=== PATIENT | male | born 1935 | race Caucasian/White ===

== ENCOUNTER 2016-10-07 15:25 | Emergency (ER) | payer MEDICARE ==
[~2016-10-07] VITALS: Ht 180.3 cm; Wt 76.0 kg
[2016-10-07 15:50] VITALS: BP 180/102; PULSE 93; RESP 16; TEMP 97.9; O2SAT 98
[2016-10-07] MEDS ORDERED: cholesterol med PO (16:10)
[2016-10-07] MEDS ORDERED: INSULIN LONG ACTING SQ (16:10)
[2016-10-07] MEDS ORDERED: blood pressure med PO (16:10)
[2016-10-07] MEDS ORDERED: insulin SQ (16:10)
[2016-10-07 16:17] LABS: BLOOD, URINE LARGE (NEG); GLUCOSE,URINE 500 mg/dL (NEG); KETONE, URINE NEG (NEG); NITRITE,URINE NEG (NEG); PH, URINE 5.5 (5.0-8.5)
[2016-10-07] MEDS ORDERED: LEVA250T PO (16:28)
[2016-10-07 16:29] LABS: METHOD OF COLLECTION CLEAN CATCH; URINE COLOR YELLOW (YELLW/STRAW)
[2016-10-07 16:31] LABS: COMMENT (UR) CULTURE INDICATED; COMMENT2 (UR) MUCOUS PRESENT; CULTURE IF INDICATED CULTURE INDICATED; SQUAMOUS EPITHELIAL CELL URINE 0-5 /hpf (0-5)
--- NOTE | 2016-10-07 16:38 | PD ---
HPI Chief Complaint: left ankle pain Time Seen by Provider: 16:33 Travel History International Travel<30 days: No Contact w/Intl Traveler<30days: No Traveled to known affect area: No History of Present Illness HPI This 81-year-old male was walking up some stairs when he felt a pop in the back of his left ankle. He has had a similar event happen on the right side a few years ago and at that time was diagnosed with a partial tear of his Achilles tendon. He had a surgical repair done. He is currently on Levaquin for treatment of a urinary tract infection. This is his second day of levaquin. He is not able to walk at this point [facility] Past Medical History High Cholesterol: Yes Diabetes: Yes Patient Takes Glucophage: No Diminished Hearing: No Hypertension: Yes Tetanus Vaccination: Unknown Influenza Vaccination: Yes Past Surgical History Surgical History: No Previous Surgery Social History Alcohol Use: No Tobacco Use: No Substance Use: No Allergies-Medications (Allergen,Severity, Reaction): Coded Allergies: No Known Allergies (Unverified , 10/07/16) Reported Meds & Prescriptions Reported Meds & Active Scripts Active Reported Levaquin (Levofloxacin) 250 Mg Tab 250 Mg PO DAILY [insulin long acting] 1 Units SQ DIRECTED [insulin] 1 Units SQ DIRECTED [blood pressure med] 1 Tab PO DAILY [cholesterol med] 1 Tab PO HS Review of Systems General / Constitutional: No: Fever, Chills HENT: No: Headaches, Vertigo Cardiovascular: No: Chest Pain or Discomfort Respiratory: No: Shortness of Breath Genitourinary: Positive: Dysuria Musculoskeletal: Positive: Weakness Hematologic/Lymphatic: No: Easy Bruising Physical Exam Narrative GENERAL: Well-developed male SKIN: Warm and dry. HEAD: Atraumatic. Normocephalic. EYES: Pupils equal and round. No scleral icterus. No injection or drainage. ENT: No nasal bleeding or discharge. Mucous membranes pink and moist. NECK: Trachea midline. No JVD. MUSCULOSKELETAL: No obvious deformities. No clubbing. No cyanosis. No edema. Examination of the left ankle does not show any deformity. There is some tenderness in the area of the Achilles. He is able to dorsi flex but he is very weak in plantar flexion. [place] test shows no movement of the foot with compression of the calf NEUROLOGICAL: Awake and alert. No obvious cranial nerve deficits. Motor grossly within normal limits. Normal speech. PSYCHIATRIC: Appropriate mood and affect; insight and judgment normal. Data Data Last Documented VS Vital Signs Date Time Temp Pulse Resp B/P Pulse Ox O2 Delivery O2 Flow Rate FiO2 10/07/16 16:11 93 16 10/07/16 15:50 97.9 180/102 98 Orders Urinalysis - C+S If Indicated (10/07/16 15:59) Urine Culture (10/07/16 15:49) Ankle, Complete ([id number]) (10/07/16 16:33) Nitrofurantoin Monohyd Macrocr (Macrobid (10/07/16 16:45) Splint Or Brace Apply/Monitor (10/07/16 17:12) Crutches (10/07/16 17:12) Labs Laboratory Tests Test 10/07/16 15:49 Urine Collection Type CLEAN CATCH Urine Color YELLOW Urine Turbidity SLIGHT Urine pH 5.5 Urine Specific [place] 1.016 Urine Protein 30 mg/dL Urine Glucose (UA) 500 mg/dL Urine Ketones NEG mg/dL Urine Occult Blood LARGE Urine Nitrite NEG Urine Bilirubin NEG Urine Leukocyte Esterase SMALL Urine RBC 50-99 /hpf Urine WBC 20-24 /hpf Urine Squamous Epithelial 0-5 /hpf Cells Urine Amorphous Sediment FEW Microscopic Urinalysis Comment CULTURE INDICATED Urine Collection Time 1549 MDM Medical Decision Making Medical Screen Exam Complete: Yes Emergency Medical Condition: Yes Medical Record Reviewed: Yes Differential Diagnosis Differential includes fracture, Achilles tendon rupture Narrative Course Findings are consistent with rupture of the Achilles tendon, possibly a partial rupture. He is currently on Levaquin and this was stopped. He does have a ongoing urinary tract infection and will be changed to Macrobid. His foot will be splinted in plantar flexion. He is to follow-up with orthopedics Diagnosis Primary Impression: Achilles tendon rupture Qualified Code: S86.012A - Achilles tendon rupture, left, initial encounter Additional Impression: Urinary tract infection Qualified Code: N30.00 - Acute cystitis without hematuria Referrals: Michael Ashton MD Additional Instructions: Called for orthopedic appointment Saturday or Saturday, leave splint on until appointment, stop Levaquin Scripts Nitrofurantoin Monohydrate Macrocrystals (Macrobid)100 Mg [id number] Mg PO BID #20 CAP Ref 0 Prov:Beny Villa MD 10/07/16 Disposition: 01 DISCHARGE HOME Condition: Stable Beny Villa MD Oct 07, 2016 16:38
[2016-10-07] MEDS ORDERED: NITROFURANTOIN MONOHYD MACROCR 100 MG CAP PO ONE (16:45)
[2016-10-07] MEDS ORDERED: MACR100C2 PO (17:20)
--- NOTE | 2016-10-07 17:40 | RADHPO ---
EXAM DATE/TIME: 10/07/2016 17:04 [facility] COMPARISON: No previous studies available for comparison. INDICATIONS : [place] a pop in ankle climbing up stairs today, has poterior ankle pain MEDICAL HISTORY : Diabetes mellitus type II. SURGICAL HISTORY : None. ENCOUNTER: Initial ACUITY: 1 day PAIN SCORE: 5/10 LOCATION: Left posterior ankle FINDINGS: There is induration and soft tissue swelling in the expected location of the Achilles tendon. Ruptur e is suspected. MRI could be used to confirm. There is no fracture. CONCLUSION: Probable Achilles rupture as suspected. MRI could be used to confirm. Mauro Pérez MD FACR on October 07, 2016 at 17:37 Board Certified Radiologist. This report was verified electronically.
[2016-10-23] MEDS ORDERED: LISI40TA PO (10:13)
[2016-10-23] MEDS ORDERED: AMLO5TAB2 PO (10:13)
[2016-10-23] MEDS ORDERED: ASPI81CH37 CHEW (10:21)
[2016-10-23] MEDS ORDERED: ATOR1TAB18 PO (10:21)
[2016-10-23] MEDS ORDERED: METO100T PO (10:21)
[2016-10-23] MEDS ORDERED: NOVONP2 (10:59)
[2016-10-23] MEDS ORDERED: LANTUS2P SQ ×2 (10:59)
[2016-10-24] MEDS ORDERED: NOVOLOGP2 SQ ×2 (06:04)
[2016-10-24] MEDS ORDERED: HYDR-3580 PO (10:05)
[2016-10-24] MEDS ORDERED: ASPI325T33 PO (10:05)
[2016-11-02] MEDS ORDERED: FINA5TAB2 PO (12:04)
[2016-11-02] MEDS ORDERED: TAMS0.4C4 PO (12:04)
[2016-11-29] MEDS ORDERED: FINA5TAB2 PO (09:23)
== END 2016-10-07 17:57 | disposition home or self-care (01) ==
LOC: PHEFT 15:25
DX: S86.012A Strain of left Achilles tendon, initial encounter (principal); N30.00 Acute cystitis without hematuria; E78.00 Pure hypercholesterolemia, unspecified; E11.9 Type 2 diabetes mellitus without complications; I10 Essential (primary) hypertension; Z79.4 Long term (current) use of insulin; X58.XXXA Exposure to other specified factors, initial encounter; Y92.008 Other place in unspecified non-institutional (private) residence as the place of occurrence of the external cause
CPT/HCPCS: 29515; 73610; 81001; 87086; 99283; E0113

== ENCOUNTER 2016-10-24 17:48 | Emergency (ER) | payer MEDICARE ==
[~2016-10-24] VITALS: Ht 180.3 cm; Wt 77.1 kg
[~2016-10-24 17:48] MED LIST changes: -ACETAMINOPHEN 1000 MG/100 ML VIAL IV ONE; -ACETAMINOPHEN/HYDROcodone 325 MG/5 MG TAB PO PRN; -BACT800T5 PO; -BUPIVACAINE HCL PF 0.5% 30 ML VIAL NB ONE; -DEXTROSE 50% IN WATER 50 ML VIAL(D50) IV PUSH PRN; -DO NOT ADM ANY ANTICOAGULANT DRUGS XX PRN; -FINA5TAB2 PO; -GLUCAGON 1 MG/ML VIAL OTHER PRN; -INSULIN HUMAN REGULAR 1,000 UNITS/10 ML VIAL SQ PRN; -INSULIN NovoLIN REGULAR SUPPLEMENTAL SCALE SQ SCH; -LACTATED RINGER'S 1000 ML INJ 1,000 ML IV SCH; -LACTATED RINGER'S 1000 ML IV SCH; -METOPROLOL TARTRATE 25 MG TAB PO PRN; -MIDAZOLAM HCL 2 MG/2 ML VIAL ONE; -MORPHINE SULFATE 4 MG/ML INJ IV PUSH PRN; -NEOSTIGMINE 3 MG/3 ML SYR IV ONE; -ONDANSETRON HCL 4 MG/2 ML VIAL IV PRN; -ONDANSETRON HCL 4 MG/2 ML VIAL IV PUSH ONE; -POVIDONE IODINE 7.5% SCRUB 118 ML BOTTLE TOP SCH; -PROMETHAZINE INJ 25 MG/ML VIAL ONE; -PROPOFOL 200 MG/20 ML AMP IV ONE; -SODIUM CHLORID 0.9% 500 ML IV SCH; -SODIUM CHLORIDE 0.9% FLUSH 5 ML FLUSH IVF PRN; -SODIUM CHLORIDE 0.9% FLUSH 5 ML FLUSH IVF SCH; -TAMS0.4C4 PO; -TAMS5CAP PO; -VANCOMYCIN 1000 MG/NS 250 ML (for <70 kg) IV SCH; -ceFAZolin 2 GM PREMIX 50 ML IV SCH; -ePHEDrine/NS 25 MG/5 ML SYR IV ONE; -fentaNYL CITRATE 250 MCG/5 ML AMP ONE
[2016-10-24 18:04] VITALS: BP 152/91; PULSE 104; RESP 16; TEMP 98.4; O2SAT 97
[2016-10-24 18:32] LABS: BLOOD, URINE LARGE (NEG); KETONE, URINE TRACE mg/dL (NEG); NITRITE,URINE NEG (NEG)
--- NOTE | 2016-10-24 18:32 | PD ---
HPI Chief Complaint: Complaint Time Seen by Provider: 18:23 Travel History International Travel<30 days: No Contact w/Intl Traveler<30days: No Traveled to known affect area: No History of Present Illness HPI 81-year-old male complains of dysuria and frequency and bladder pressure. Patient status post left Achilles tendon surgery this morning. Patient started having dysuria or frequency and bladder pressure since then. Patient states that he does not know whether he had Self catheter during surgery or not. Patient was treated for UTI recently with Levaquin and then Macrobid. Patient' s on Flagyl 3 times a day now after the surgery. Patient denies any headache. Patient denies any chest pain or shortness of breath. Patient denies abdominal pain. Patient denies any back pain. Patient denies any fever chills. PFSH Past Medical History Cancer: No Cardiovascular Problems: Yes (htn on meds) High Cholesterol: Yes Diabetes: Yes (type 1) Patient Takes Glucophage: No Diminished Hearing: No Endocrine: Yes Gastrointestinal Disorders: No Genitourinary: No Hepatitis: No Hiatal Hernia: No Hypertension: Yes Immune Disorder: No Medical other: No Musculoskeletal: Yes (ARTHRITIS GENERALIZED) Neurologic: No Psychiatric: No Reproductive: No Respiratory: No Thyroid Disease: No Past Surgical History Abdominal Surgery: Yes (RT INGUINAL HERNIA) AICD: No Eye Surgery: Yes (NADINE. CATARACT) Joint Replacement: No Pacemaker: No Other Surgery: Yes Social History Alcohol Use: No Tobacco Use: No Substance Use: No Allergies-Medications (Allergen,Severity, Reaction): Coded Allergies: Levaquin (Verified Adverse Reaction, Severe, achilles tendon tear, 10/24/16) Reported Meds & Prescriptions Reported Meds & Active Scripts Active Aspirin EC (Aspirin) 325 Mg Tabdr 325 Mg PO DAILY Hydrocodone-Acetaminophen 7.5-325 mg Tab 1 Tab PO Q4H PRN as needed Reported Novolog Inj (Insulin Aspart) 1,000 Unit/10 Ml Vial 10 Units SQ HS Novolog Inj (Insulin Aspart) 1,000 Unit/10 Ml Vial 18 Units SQ DAILY Lantus Inj (Insulin Glargine) 1,000 Unit/10 Ml Vial 15 Units SQ HS Lantus Inj (Insulin Glargine) 1,000 Unit/10 Ml Vial 32 Units SQ DAILY Atorvastatin (Atorvastatin Calcium) 80 Mg Tab 80 Mg PO HS Metoprolol Tartrate 100 Mg Tab 100 Mg PO DAILY Lisinopril 40 Mg Tab 40 Mg PO DAILY Amlodipine (Amlodipine Besylate) 5 Mg Tab 5 Mg PO DAILY Review of Systems General / Constitutional: No: Fever Eyes: No: Visual changes HENT: No: Headaches Cardiovascular: No: Chest Pain or Discomfort Respiratory: No: Shortness of Breath Gastrointestinal: No: Abdominal Pain Genitourinary: Positive: Frequency, Dysuria Musculoskeletal: No: Pain Skin: No Rash Neurologic: No: Weakness Psychiatric: No: Depression Endocrine: No: Polydipsia Hematologic/Lymphatic: No: Easy Bruising Physical Exam Narrative GENERAL: Well-nourished, well-developed patient. SKIN: Warm and dry. HEAD: Normocephalic. EYES: No scleral icterus. No injection or drainage. NECK: Supple, trachea midline. No JVD or lymphadenopathy. CARDIOVASCULAR: Regular rate and rhythm without murmurs, gallops, or rubs. RESPIRATORY: Breath sounds equal bilaterally. No accessory muscle use. GASTROINTESTINAL: Abdomen soft, non-tender, nondistended. MUSCULOSKELETAL: No cyanosis, or edema. Patient has shortness splint in place left leg. BACK: Nontender without obvious deformity. No CVA tenderness. Data Data Last Documented VS Vital Signs Date Time Temp Pulse Resp B/P Pulse Ox O2 Delivery O2 Flow Rate FiO2 10/24/16 18:04 98.4 104 16 152/91 97 Orders Urinalysis - C+S If Indicated (10/24/16 18:09) Urinary Catheter Insert/Apply (10/24/16 18:47) Labs Laboratory Tests Test 10/24/16 18:15 Urine Collection Type CLEAN CATCH Urine Color STRAW Urine Turbidity CLEAR Urine pH 6.0 Urine Specific [place] 1.020 Urine Protein 30 mg/dL Urine Glucose (UA) 1000 OR GREATER mg/dL Urine Ketones TRACE mg/dL Urine Occult Blood LARGE Urine Nitrite NEG Urine Bilirubin NEG Urine Leukocyte Esterase NEG Urine RBC 15-19 /hpf Urine WBC 3-5 /hpf Urine Squamous Epithelial 0-2 /hpf Cells Urine Bacteria RARE /hpf Microscopic Urinalysis Comment CULT NOT INDICATED MDM Medical Decision Making Medical Screen Exam Complete: Yes Emergency Medical Condition: Yes Interpretation(s) 19 11 PM. UA positive for RBC and glucose. Negative for WBC. Rare bacteria Differential Diagnosis Differential diagnosis including UTI, urethritis, pyelonephritis, urinary retention. Narrative Course 81-year-old male with dysuria frequency and bladder pressure. Status post left Achilles tendon surgery this morning. Self catheter inserted. Patient had 1200 cc of urine. Leg bag applied. Diagnosis Primary Impression: Urinary retention Additional Impression: Bacteriuria Patient Instructions: General Instructions Additional Instructions: Take medications as directed. Follow-up with personal physician and urologist. Return if persistent problem or worse. Med/Other Pt SpecificInfo: Prescription(s) given Scripts Tamsulosin (Flomax)0.4 Mg Cap0.4 Mg PO BID #14 CAP Ref 0 Prov:Anton Stockton MD 10/24/16 Sulfamethoxazole-Trimethoprim (Bactrim DS)800-160 Mg Tab1 Tab PO BID #6 TAB Prov:Anton Stockton MD 10/24/16 Disposition: 01 DISCHARGE HOME Condition: Stable Anton Stockton MD Oct 24, 2016 18:32
[2016-10-24 18:33] LABS: GLUCOSE,URINE 1000 OR GREATER mg/dL (NEG)
[2016-10-24 18:54] LABS: METHOD OF COLLECTION CLEAN CATCH; URINE COLOR STRAW (YELLW/STRAW)
[2016-10-24 18:55] LABS: BACTERIA, URINE RARE /hpf; RBC, URINE 15-19 /hpf (0-3); SQUAMOUS EPITHELIAL CELL URINE 0-2 /hpf (0-5)
[2016-10-24 18:56] LABS: COMMENT (UR) CULT NOT INDICATED; CULTURE IF INDICATED CULT NOT INDICATED
[2016-10-24] MEDS ORDERED: BACT800T5 PO (19:16)
[2016-10-24] MEDS ORDERED: TAMS5CAP PO (19:16)
[2016-10-24] MEDS ORDERED: SULFAMETHOXAZOLE-TRIMETHOPRIM DS 800-160 MG TAB PO ONE (19:30)
[2016-10-24] MEDS ORDERED: TAMSULOSIN HCL 0.4 MG CAP PO ONE (19:30)
[2016-10-24 19:48] VITALS: BP 149/83
[2016-11-02] MEDS ORDERED: TAMS0.4C4 PO (12:04)
[2016-11-02] MEDS ORDERED: FINA5TAB2 PO (12:04)
[2016-11-29] MEDS ORDERED: FINA5TAB2 PO (09:23)
== END 2016-10-24 19:50 | disposition home or self-care (01) ==
LOC: PHED 17:48
DX: R33.9 Retention of urine, unspecified (principal); R82.71 Bacteriuria
CPT/HCPCS: 51702; 81001

== ENCOUNTER → 2016-10-24 | Day surgery (SDC) | payer MEDICARE ==
[~2016-10-24] VITALS: Ht 180.3 cm; Wt 76.7 kg
[~2016-10-24] MED LIST: ACETAMINOPHEN 1000 MG/100 ML VIAL IV ONE; ACETAMINOPHEN/HYDROcodone 325 MG/5 MG TAB PO PRN; AMLO5TAB2 PO; ASPI325T33 PO; ASPI81CH37 CHEW; ATOR1TAB18 PO; BACT800T5 PO; BUPIVACAINE HCL PF 0.5% 30 ML VIAL NB ONE; DEXTROSE 50% IN WATER 50 ML VIAL(D50) IV PUSH PRN; DO NOT ADM ANY ANTICOAGULANT DRUGS XX PRN; FINA5TAB2 PO; GLUCAGON 1 MG/ML VIAL OTHER PRN; HYDR-3580 PO; INSULIN HUMAN REGULAR 1,000 UNITS/10 ML VIAL SQ PRN; INSULIN NovoLIN REGULAR SUPPLEMENTAL SCALE SQ SCH; LACTATED RINGER'S 1000 ML INJ 1,000 ML IV SCH; LACTATED RINGER'S 1000 ML IV SCH; LANTUS2P SQ; LISI40TA PO; METO100T PO; METOPROLOL TARTRATE 25 MG TAB PO PRN; MIDAZOLAM HCL 2 MG/2 ML VIAL ONE; MORPHINE SULFATE 4 MG/ML INJ IV PUSH PRN; NEOSTIGMINE 3 MG/3 ML SYR IV ONE; NOVOLOGP2 SQ; NOVONP2; ONDANSETRON HCL 4 MG/2 ML VIAL IV PRN; ONDANSETRON HCL 4 MG/2 ML VIAL IV PUSH ONE; POVIDONE IODINE 7.5% SCRUB 118 ML BOTTLE TOP SCH; PROMETHAZINE INJ 25 MG/ML VIAL ONE; PROPOFOL 200 MG/20 ML AMP IV ONE; SODIUM CHLORID 0.9% 500 ML IV SCH; SODIUM CHLORIDE 0.9% FLUSH 5 ML FLUSH IVF PRN; SODIUM CHLORIDE 0.9% FLUSH 5 ML FLUSH IVF SCH; TAMS0.4C4 PO; TAMS5CAP PO; VANCOMYCIN 1000 MG/NS 250 ML (for <70 kg) IV SCH; ceFAZolin 2 GM PREMIX 50 ML IV SCH; ePHEDrine/NS 25 MG/5 ML SYR IV ONE; fentaNYL CITRATE 250 MCG/5 ML AMP ONE
[2016-10-24 06:10] VITALS: BP 195/100; PULSE 67; RESP 20; TEMP 98; O2SAT 98
[2016-10-24 06:30] VITALS: PULSE 67
--- NOTE | 2016-10-24 06:54 | MH ---
cc: NUHAALEJANDRA DATE OF ADMISSION: 10/24/2016 DIAGNOSIS Laceration Achilles tendon left, date of injury 10/07/2016. HISTORY OF PRESENT ILLNESS The patient states he was taking Levaquin for a few days. He was walking across the room at home and felt something snap in the back of his leg. He was seen in the emergency room where he was x-rayed and evaluated and diagnosed and had splint put on, given crutches and to see the undersigned. I saw him on October 12. At this time I ordered an MRI scan which confirmed the mid substance tear of this left Achilles tendon. The patient did not have a family physician other than the [facility] and therefore he was sent to [facility] primary care where he was seen by Dr. Henriquez who has evaluated him and considers him low risk from a cardiovascular standpoint. PERSONAL AND SOCIAL HISTORY Nonsmoker, nondrinker. He is retired. He tries to exercise. PAST MEDICAL HISTORY He is insulin-dependent diabetic for several decades. He has high blood pressure and high cholesterol. PAST SURGERIES Achilles tendon repair right leg 20 years ago and hernia repair. MEDICATIONS 1. He is on Macrodantin for chronic urinary tract infection. 2. He is on Lantus and 3. NovoLog insulin. 4. Amlodipine. 5. Lisinopril. 6. Atenolol. 7. 81 mg aspirin. PHYSICAL EXAMINATION GENERAL: Physical examination reveals elderly white male who looks very healthy for his age. HEENT: Head is normocephalic. Pupils are reactive to light. Face symmetrical. HEART: Regular rhythm. No murmurs. LUNGS: Clear to auscultation. ABDOMEN: Soft and supple. EXTREMITIES: Left leg reveals obvious evidence of mid substance tear of the Achilles tendon on the left side. He has palpable pedal pulses and moves his toes well. He has good sensation to touch. He also has preserved protective sensation as tested by the 5.07 [place] monofilament. He does have slight clawing of his big toe bilaterally but apparently had chronic change. There is no evidence of any obvious neuropathy. ASSESSMENT The diagnosis, the treatment and particularly the difference between nonoperative treatment and operative treatment in terms of the outcome and expected results as well as significant risks of surgery, especially in a 80-year-old with diabetes in terms of wound healing issues, infection, failure of surgery, failure of healing, etc. He has been advised that we may use graft jacket which is allograft skin for augmentation repair. There is a small possibility of flexor hallicis longus transfer to the calcaneus. These were all discussed. Postoperative course discussed. Informed consent has been obtained. No guarantees made. MD HARRISON Knutson/JACK /6:15 AM /6:32 AM
[2016-10-24 12:50] VITALS: BP 167/76; PULSE 69; RESP 16; TEMP 97.5; O2SAT 97
--- NOTE | 2016-10-26 21:55 | MP ---
cc: ALEJANDRA ANNE Corrected: 10/29/2016 DATE OF SURGERY: 10/24/2016 PREOPERATIVE DIAGNOSIS: Mid substance tear left Achilles tendon. POSTOPERATIVE DIAGNOSIS Mid substance tear left Achilles tendon. OPERATIVE PROCEDURE 1. Primary repair mid substance tear Achilles tendon left. 2. Augmentation repair with graft jacket SURGEON Dr. Anne. ANESTHESIA: The patient received a popliteal block in holding and then had general anesthesia with endotracheal intubation. TECHNIQUE After induction of anesthesia the patient placed in prone position. Following routine precautions for prone position in terms of supporting his chest and knees, etc., elbows were well protected. Both lower extremities were compared. Even his right leg where he has had previous repair of the Achilles tendon and the Achilles tendon appears to be intact, when he flexed his knees at 90 degrees, the foot was in neutral position rather in plantar flexion. Left lower extremity thoroughly prepped with alcohol and ChloraPrep draped in routine fashion. Tourniquet was not used. [place] drape was applied over the back of the leg. An incision was made initially about four inches long and eventually extended proximally, through the medial border of the Achilles tendon and extended proximally. Incision was carried right down to the tendon sheath and then a lateral flap was developed. Dissection through the tendon sheath reveals that this is a proximal tear closer to the musculotendinous junction. There was a tear with more distraction medially and laterally. A #5 FiberWire suture was passed in a modified Zoe fashion and held with a hemostat superior laterally. One #2 FiberWire was then threaded through the medial and lateral borders of the distal and proximal tendons in a modified [place] fashion. The knee was flexed and the foot was slightly plantarflexed and the #2 FiberWire suture was first tied medially getting good approximation. I then proceeded to tie the #5 FiberWire and then the lateral #2 FiberWire getting good coaptation. A graft jacket was soaked in saline was then used. A piece about 5 cm long and 1.5 cm wide was placed on the repair with the tissue side abutting the tendon and then secured with running 2-0 Vicryl suture. The skin was then closed in single layer incorporating the tendon sheath with interrupted vertical mattress, 3-0 nylon sutures without any significant tension. Wound was then dressed with Xeroform, 4x4s, Sof-Rol and ABD, and an a posterior fiberglass splint was applied with the foot in about 10 degrees of plantar flexion. It was reinforced with fiberglass anteriorly also. The patient transferred to recovery room in satisfactory condition. The patient tolerated the procedure well. TRANSFUSIONS: None. COMPLICATIONS: None. POSTOPERATIVE CONDITION: Satisfactory PROGNOSIS: Guarded to good. Especially concerned about his diabetes and his age, and possible noncompliance. He is otherwise healthy. He is also alert, oriented and knows what is going on, but his daughter says that he tends to do too much. The tear was also somewhat in a beveled angle fashion and somewhat more close to the musculotendinous junction. MD HARRISON Knutson/BELKYS /9:52 AM /9:44 PM NARCISO
== END | disposition home or self-care (01) ==
LOC: HSDC 05:27
PROVIDERS: ATTEND Orthopaedic Surgery
DX: S86.012A Strain of left Achilles tendon, initial encounter (principal); I10 Essential (primary) hypertension; E78.5 Hyperlipidemia, unspecified; E78.00 Pure hypercholesterolemia, unspecified; Z79.4 Long term (current) use of insulin; E11.9 Type 2 diabetes mellitus without complications; Z79.82 Long term (current) use of aspirin; X58.XXXA Exposure to other specified factors, initial encounter; Y92.008 Other place in unspecified non-institutional (private) residence as the place of occurrence of the external cause
CPT/HCPCS: 01472; 15271; 27652; 64450; J0131; J0690; J2250; J2405; J2550; J2710; J3010; J3370; J7050; J7120; Q4107; 51702; 81001

== ENCOUNTER 2016-11-09 00:50 | Emergency (ER) | payer MEDICARE ==
[~2016-11-09] VITALS: Ht 177.8 cm; Wt 77.3 kg
[~2016-11-09 00:50] MED LIST changes: -ASPI81CH37 CHEW; +BACT800T5 PO; +FINA5TAB2 PO; -HYDR-3580 PO; -NOVONP2; +TAMS0.4C4 PO; +TAMS5CAP PO
[2016-11-09 00:57] VITALS: BP 180/103; PULSE 88; RESP 16; TEMP 98.1
[2016-11-09 01:56] VITALS: BP 142/87; PULSE 88; RESP 18; O2SAT 98
[2016-11-09 02:29] LABS: KETONE, URINE NEG (NEG); NITRITE,URINE NEG (NEG); PH, URINE 5.5 (5.0-8.5)
[2016-11-09 02:37] LABS: BLOOD, URINE MOD (NEG); GLUCOSE,URINE 1000 OR GREATER mg/dL (NEG)
[2016-11-09 02:40] LABS: COMMENT (UR) CULT NOT INDICATED; CULTURE IF INDICATED CULT NOT INDICATED; SQUAMOUS EPITHELIAL CELL URINE 0-5 /hpf (0-5); URINE COLOR YELLOW (YELLW/STRAW); WBC, URINE 0-2 /hpf (0-5)
--- NOTE | 2016-11-09 03:52 | PD ---
HPI Chief Complaint: Complaint Time Seen by Provider: 03:51 Travel History International Travel<30 days: No Contact w/Intl Traveler<30days: No Traveled to known affect area: No History of Present Illness HPI 81-year-old male presents to the emergency department for urinary retention. Patient has had Self catheter insertion since 10/24/16 after Achilles tendon surgery. Patient has subsequently been seen by Dr. Ellis and underwent cystoscopy 11/01/16 and was told to a urinary catheter in place until November 29. Patient has done well until today has had decreased urine output and is concerned about catheter occlusion or bowel function. No fever no chills no nausea no vomiting no other concerns or complaints. Patient is currently on Bactrim antibiotic. Patient is diabetic blood sugars well-controlled. Patient was encouraged to come to the emergency department by his urologist to have his urinary catheter evaluated and changed. Pain reportedly 2/10 in intensity. PFSH Past Medical History Narrative Medical Hypertension diabetes Achilles tendon rupture repair urinary retention no tobacco use; nursing notes. Cancer: No Cardiovascular Problems: Yes (htn on meds) High Cholesterol: Yes Diabetes: Yes (type 1) Patient Takes Glucophage: No Diminished Hearing: No Endocrine: Yes Gastrointestinal Disorders: No Genitourinary: No Hepatitis: No Hiatal Hernia: No Hypertension: Yes Immune Disorder: No Musculoskeletal: Yes (ARTHRITIS GENERALIZED) Neurologic: No Psychiatric: No Reproductive: No Respiratory: No Thyroid Disease: No Tetanus Vaccination: Unknown Influenza Vaccination: Yes Past Surgical History Abdominal Surgery: Yes (RT INGUINAL HERNIA) AICD: No Eye Surgery: Yes (NADINE. CATARACT) Joint Replacement: No Pacemaker: No Other Surgery: Yes Social History Alcohol Use: No Tobacco Use: No Substance Use: No Allergies-Medications (Allergen,Severity, Reaction): Coded Allergies: Levaquin (Verified Adverse Reaction, Severe, achilles tendon tear, 11/09/16 ) Reported Meds & Prescriptions Reported Meds & Active Scripts Active Finasteride 5 Mg Tab 5 Mg PO DAILY Do not crush. Bactrim DS (Sulfamethoxazole-Trimethoprim) 800-160 Mg Tab 1 Tab PO BID Aspirin EC (Aspirin) 325 Mg Tabdr 325 Mg PO DAILY Reported Novolog Inj (Insulin Aspart) 1,000 Unit/10 Ml Vial 10 Units SQ HS Novolog Inj (Insulin Aspart) 1,000 Unit/10 Ml Vial 18 Units SQ DAILY Lantus Inj (Insulin Glargine) 1,000 Unit/10 Ml Vial 15 Units SQ HS Lantus Inj (Insulin Glargine) 1,000 Unit/10 Ml Vial 32 Units SQ DAILY Atorvastatin (Atorvastatin Calcium) 80 Mg Tab 80 Mg PO HS Metoprolol Tartrate 100 Mg Tab 100 Mg PO DAILY Lisinopril 40 Mg Tab 40 Mg PO DAILY Amlodipine (Amlodipine Besylate) 5 Mg Tab 5 Mg PO DAILY Review of Systems Except as stated in HPI: all other systems reviewed are Neg General / Constitutional: No: Fever, Chills HENT: No: Congestion Cardiovascular: No: Chest Pain or Discomfort Respiratory: No: Shortness of Breath Gastrointestinal: Positive: Abdominal Pain, No: Vomiting Genitourinary: Positive: Decreased Urinary Output, No: Flank Pain Musculoskeletal: No: Myalgias, Arthralgias Skin: No Rash Neurologic: No: Weakness Psychiatric: No: Anxiety Endocrine: No: Polyuria, Polydipsia Hematologic/Lymphatic: No: Lymph Node Enlargement Physical Exam Narrative GENERAL: Well-developed well-nourished in no discomfort after urinary catheter replacement SKIN: Warm and dry. HEAD: Normocephalic. EYES: No scleral icterus. No injection or drainage. NECK: Supple, trachea midline. No JVD or lymphadenopathy. CARDIOVASCULAR: Regular rate and rhythm without murmurs, gallops, or rubs. RESPIRATORY: Breath sounds equal bilaterally. No accessory muscle use. GASTROINTESTINAL: Abdomen soft, non-tender, nondistended. MUSCULOSKELETAL: No cyanosis, or edema. BACK: Nontender without obvious deformity. No CVA tenderness. Data Data Last Documented VS Vital Signs Date Time Temp Pulse Resp B/P Pulse Ox O2 Delivery O2 Flow Rate FiO2 11/09/16 01:59 88 18 11/09/16 01:56 142/87 98 11/09/16 00:57 98.1 Room Air Orders Urinalysis - C+S If Indicated (11/09/16 01:55) Bag, Leg 32oz Sterile Large Ea (11/09/16 03:52) Labs Laboratory Tests Test 11/09/16 01:55 Urine Color YELLOW Urine Turbidity CLEAR Urine pH 5.5 Urine Specific [place] 1.020 Urine Protein 30 mg/dL Urine Glucose (UA) 1000 OR GREATER mg/dL Urine Ketones NEG mg/dL Urine Occult Blood MOD Urine Nitrite NEG Urine Bilirubin NEG Urine Leukocyte Esterase NEG Urine RBC 9-14 /hpf Urine WBC 0-2 /hpf Urine Squamous Epithelial 0-5 /hpf Cells Urine Bacteria NONE /hpf Microscopic Urinalysis Comment CULT NOT INDICATED MDM Medical Decision Making Medical Screen Exam Complete: Yes Emergency Medical Condition: Yes Medical Record Reviewed: Yes Interpretation(s) UA: Values in normal range except for hyperglycemia Differential Diagnosis Urinary retention, urinary catheter malfunction, UTI Narrative Course Urinary catheter replacement and urinalysis Patient with total of 1200 cc of urine output 600ml and 600 ml Patient presently is voicing no concerns or complaints feels well after urinary catheter replaced and is stable for outpatient management Diagnosis Primary Impression: Urinary retention Referrals: Bahman Ellis MD call for appointment Patient Instructions: General Instructions Additional Instructions: Increase fluid hydration Complete antibiotic as prescribed Return to the emergency department for a concerns or change in condition Med/Other Pt SpecificInfo: No Change to Meds Disposition: 01 DISCHARGE HOME Condition: Stable Fabiola Puentes MD Nov 09, 2016 03:52
[2016-11-09 04:15] VITALS: BP 169/80; PULSE 88; RESP 16; O2SAT 99
[2016-11-29] MEDS ORDERED: FINA5TAB2 PO (09:23)
== END 2016-11-09 04:30 | disposition home or self-care (01) ==
LOC: PHED 00:50
DX: R33.9 Retention of urine, unspecified (principal); E10.9 Type 1 diabetes mellitus without complications; Z79.4 Long term (current) use of insulin
CPT/HCPCS: 51702; 81001

== ENCOUNTER 2017-10-25 11:20 | Inpatient (IN) | payer MEDICARE ==
[~2017-10-25] VITALS: Ht 180.3 cm; Wt 81.5 kg
[2017-10-25] VITALS (14 sets, daily range): BP systolic 109–162; BP diastolic 60–90; PULSE 64–87; RESP 16–20; TEMP 97.5–98.3; O2SAT 97–99
[~2017-10-25 11:20] MED LIST changes: -ATOR1TAB18 PO; +ATOR80TA45 PO; -BACT800T5 PO; -TAMS0.4C4 PO; -TAMS5CAP PO
[2017-10-25 11:36] LABS: AUTOMATED NEUTROPHIL # 6.1 TH/MM3 (1.8-7.7); BASOPHIL % 0.4 % (0.0-2.0); EOSINOPHIL # 0.1 TH/MM3 (0-0.4); EOSINOPHIL % 0.9 % (0.0-4.0); HEMATOCRIT 40.7 % (39.0-51.0); HEMOGLOBIN 13.4 GM/DL (13.0-17.0); LYMPH % 9.2 % (9.0-44.0); LYMPHOCYTE # 0.7 TH/MM3 (1.0-4.8); MEAN CELL VOLUME 90.7 FL (80.0-100.0); MEAN CORPUSCULAR HEMOGLOBIN 29.9 PG (27.0-34.0); MEAN PLATELET VOLUME 7.3 FL (7.0-11.0); MONO % 8.3 % (0.0-8.0); MONOCYTE # 0.6 TH/MM3 (0-0.9); NEUT % 81.2 % (16.0-70.0); PLATELET COUNT 242 TH/MM3 (150-450); RED BLOOD COUNT 4.49 MIL/MM3 (4.50-5.90); WHITE BLOOD COUNT 7.5 TH/MM3 (4.0-11.0)
[2017-10-25] MEDS ORDERED: AMLO10TA2 PO (11:40)
[2017-10-25] MEDS ORDERED: NOVONP2 SQ (11:40)
[2017-10-25] MEDS ORDERED: SPIR100T PO (11:40)
[2017-10-25] MEDS ORDERED: ASPI-516 CHEW (11:40)
[2017-10-25] MEDS ORDERED: LANTUS2P SQ (11:40)
--- NOTE | 2017-10-25 11:40 | RADRPT ---
EXAM DATE/TIME: 10/25/2017 11:30 [facility] COMPARISON: No previous studies available for comparison. INDICATIONS : Chest pain. MEDICAL HISTORY : Diabetes mellitus type II. Hypertension Hypercholesterolemia. SURGICAL HISTORY : None. ENCOUNTER: Initial ACUITY: 2 days PAIN SCORE: 4/10 LOCATION: Bilateral chest FINDINGS: A single view of the chest demonstrates the lungs to be symmetrically aerated without evidence of mas s, infiltrate or effusion. The cardiomediastinal contours are unremarkable. Osseous structures are intact. CONCLUSION: No acute disease. Ruddy Gonzalez MD on October 25, 2017 at 11:37 Board Certified Radiologist. This report was verified electronically.
[2017-10-25 11:44] LABS: CHLORIDE 106 MEQ/L (98-107); SODIUM (NA) 137 MEQ/L (136-145)
[2017-10-25 11:47] LABS: BICARBONATE 24.5 MEQ/L (21.0-32.0); BLOOD UREA NITROGEN 26 MG/DL (7-18); CALCIUM 8.4 MG/DL (8.5-10.1); GLUCOSE,RANDOM 240 MG/DL (74-106)
[2017-10-25 11:50] LABS: GLOMERULAR FILTRATION RATE 53 ML/MIN (>89)
[2017-10-25 11:55] LABS: TROPONIN I 0.05 NG/ML (0.02-0.05)
[2017-10-25] MEDS ORDERED: ASPIRIN 325 MG TAB PO ONE (12:00)
--- NOTE | 2017-10-25 12:27 | PD ---
HPI Chief Complaint: Chest Pain Time Seen by Provider: 11:38 Travel History International Travel<30 days: No Contact w/Intl Traveler<30days: No Traveled to known affect area: No History of Present Illness HPI 82-year-old male complains of chest pain. Patient states that he has intermittent chest pain for the past 3 days. Patient states that the past pain usually worse with walking and relieved with resting. Patient states that he occasionally has chest pain at rest. Patient states the chest pain is left sided chest pressure without radiation. Patient denies palpitation nausea or diaphoresis. Patient take aspirin 81 mg daily. Patient has history of hypertension, diabetes. Patient is a nonsmoker. Patient states that he had stress test done at the [place] [facility] 3 months ago and was normal. Patient denies any history of SC. Patient states that he started having chest pain since this morning around 7 AM. Patient states that he is still having persistent chest pain since then. On a scale of 1-10 the pain is a 2 now. PFSH Past Medical History Cancer: No Cardiovascular Problems: Yes (htn on meds) High Cholesterol: Yes Diabetes: Yes (type 1) Patient Takes Glucophage: No Diminished Hearing: No Endocrine: Yes Gastrointestinal Disorders: No Genitourinary: No Hepatitis: No Hiatal Hernia: No Hypertension: Yes Immune Disorder: No Musculoskeletal: Yes (ARTHRITIS GENERALIZED) Neurologic: No Psychiatric: No Reproductive: No Respiratory: No Thyroid Disease: No Tetanus Vaccination: > 5 Years Influenza Vaccination: Yes Past Surgical History Abdominal Surgery: Yes (RT INGUINAL HERNIA) AICD: No Eye Surgery: Yes (NADINE. CATARACT) Joint Replacement: No Pacemaker: No Other Surgery: Yes Social History Alcohol Use: No Tobacco Use: No (DENIES) Substance Use: No Allergies-Medications (Allergen,Severity, Reaction): Coded Allergies: levofloxacin (Unverified Adverse Reaction, Severe, achilles tendon tear, ) Reported Meds & Prescriptions Reported Meds & Active Scripts Active Reported Novolin N Inj (Insulin Human NPH) 1,000 Unit/10 Ml Vial 25 Units SQ DIRECTED Lantus Inj (Insulin Glargine) 1,000 Unit/10 Ml Vial 43 Units SQ HS Aspirin 81 Mg Chew 81 Mg CHEW DAILY Spironolactone 100 Mg Tab 100 Mg PO DAILY Amlodipine (Amlodipine Besylate) 10 Mg Tab 10 Mg PO DAILY Atorvastatin (Atorvastatin Calcium) 80 Mg Tab 80 Mg PO HS Metoprolol Tartrate 100 Mg Tab 100 Mg PO DAILY Lisinopril 40 Mg Tab 40 Mg PO DAILY Review of Systems General / Constitutional: No: Fever Eyes: No: Visual changes HENT: No: Headaches Cardiovascular: Positive: Chest Pain or Discomfort Respiratory: No: Shortness of Breath Gastrointestinal: No: Abdominal Pain Genitourinary: No: Dysuria Musculoskeletal: No: Pain Skin: No Rash Neurologic: No: Weakness Psychiatric: No: Depression Endocrine: No: Polydipsia Hematologic/Lymphatic: No: Easy Bruising Physical Exam Narrative GENERAL: Well-nourished, well-developed patient. SKIN: Focused skin assessment warm/dry. HEAD: Normocephalic. EYES: No scleral icterus. No injection or drainage. NECK: Supple, trachea midline. No JVD or lymphadenopathy. CARDIOVASCULAR: Regular rate and rhythm without murmurs, gallops, or rubs. RESPIRATORY: Breath sounds equal bilaterally. No accessory muscle use. GASTROINTESTINAL: Abdomen soft, non-tender, nondistended. MUSCULOSKELETAL: No cyanosis, or edema. BACK: Nontender without obvious deformity. No CVA tenderness. Neurologic exam normal. Data Data Last Documented VS Vital Signs Date Time Temp Pulse Resp B/P (MAP) Pulse Ox O2 Delivery O2 Flow Rate FiO2 10/25/17 11:40 (114) 10/25/17 11:32 98 Room Air 10/25/17 11:32 97.7 87 16 Orders Orders Electrocardiogram (10/25/17 11:24) Complete Blood Count With Diff (10/25/17 11:24) Basic Metabolic Panel (Bmp) (10/25/17 11:24) Ckmb (Isoenzyme) Profile (10/25/17 11:24) Troponin I (10/25/17 11:24) Chest, Single Ap (10/25/17 11:24) Iv Access Insert/Monitor (10/25/17 11:24) Ecg Monitoring (10/25/17 11:24) Oxygen Administration (10/25/17 11:24) Oximetry (10/25/17 11:24) Aspirin (Aspirin) (10/25/17 12:00) CKMB (10/25/17 11:30) CKMB% (10/25/17 11:30) Labs Laboratory Tests Test 10/25/17 11:30 White Blood Count 7.5 TH/MM3 Red Blood Count 4.49 MIL/MM3 Hemoglobin 13.4 GM/DL Hematocrit 40.7 % Mean Corpuscular Volume 90.7 FL Mean Corpuscular Hemoglobin 29.9 PG Mean Corpuscular Hemoglobin Concent 33.0 % Red Cell Distribution Width 13.0 % Platelet Count 242 TH/MM3 Mean Platelet Volume 7.3 FL Neutrophils (%) (Auto) 81.2 % Lymphocytes (%) (Auto) 9.2 % Monocytes (%) (Auto) 8.3 % Eosinophils (%) (Auto) 0.9 % Basophils (%) (Auto) 0.4 % Neutrophils # (Auto) 6.1 TH/MM3 Lymphocytes # (Auto) 0.7 TH/MM3 Monocytes # (Auto) 0.6 TH/MM3 Eosinophils # (Auto) 0.1 TH/MM3 Basophils # (Auto) 0.0 TH/MM3 CBC Comment DIFF FINAL Differential Comment Blood Urea Nitrogen 26 MG/DL Creatinine 1.30 MG/DL Random Glucose 240 MG/DL Calcium Level 8.4 MG/DL Sodium Level 137 MEQ/L Potassium Level 4.3 MEQ/L Chloride Level 106 MEQ/L Carbon Dioxide Level 24.5 MEQ/L Anion Gap 7 MEQ/L Estimat Glomerular Filtration Rate 53 ML/MIN Total Creatine Kinase 113 U/L Creatine Kinase MB 3.8 NG/ML Troponin I 0.05 NG/ML [facility] Medical Decision Making Medical Screen Exam Complete: Yes Emergency Medical Condition: Yes Interpretation(s) EKG shows sinus rhythm with T-wave inversion in 3 and aVF. Repeat EKG again sinus rhythm with inverted T waves in 1 and 2 and aVL aVF. Last Impressions Chest X-Ray 10/25/17 1124 Signed Impressions: Service Date/Time: Wednesday, October 25, 2017 11:30 - CONCLUSION: No acute disease. Ruddy Gonzalez MD CBC within normal limit. BUN 26. Creatinine 1.30. GFR 55. Glucose 240. CK- MB 3.8. Troponin 0.05. Differential Diagnosis Differential diagnoses include angina, SC, PE, pneumothorax. Narrative Course 82-year-old male with chest pain. Nitro paste 1 inch on chest wall now. Aspirin 325 minute gram by mouth now. Heparin bolus and drip. Patient will be transferred by ambulance to the main hospital for cardiac catheter this afternoon. I spoke with feather shaper Dr. Hastings. Diagnosis Primary Impression: Chest pain Qualified Codes: R07.9 - Chest pain, unspecified Admitting Information Admitting Physician Requests: it Anton Stockton MD Oct 25, 2017 12:26
[2017-10-25] MEDS ORDERED: HEPARIN SODIUM - IV 10,000 UNITS/10 ML VIAL IV ONE (12:30)
[2017-10-25] MEDS ORDERED: NITROGLYCERIN 2% OINT 1 GM PACKET TOPICAL ONE (12:30)
[2017-10-25] MEDS ORDERED: HEPARIN-D5W 25,000 U/250 ML 250 ML IV PRN (13:00)
[2017-10-25 13:06] LABS: PROTHROMBIN TIME - PATIENT 10.1 SEC (9.8-11.6)
[2017-10-25] MEDS ORDERED: IOHEXOL 350 MG/ML 50 ML BTL (for Cath Lab) OTHER ONE (14:05)
[2017-10-25] MEDS ORDERED: HEPARIN-NS/PF INJ 1,000 ML ONE (14:06)
[2017-10-25] MEDS ORDERED: MIDAZOLAM HCL 2 MG/2 ML VIAL ONE (14:06)
[2017-10-25] MEDS ORDERED: HEPARIN SODIUM - IV 10,000 UNITS/10 ML VIAL ONE (14:16)
[2017-10-25] MEDS ORDERED: NITROGLYCERIN INJ 5 ML ONE (14:16)
[2017-10-25] MEDS ORDERED: VERAPAMIL HCL 5 MG/2 ML VIAL ONE (14:16)
--- NOTE | 2017-10-25 14:25 | MB ---
cc: TELLY LA M.D. DATE OF CONSULTATION: 10/25/2017. REASON FOR CONSULTATION: Unstable angina. HISTORY OF PRESENT ILLNESS: The patient is an 82-year-old white male with a history of hypertension, diabetes, hyperlipidemia who was in his usual state of health up until two days prior to admission when he began to experience intermittent episodes of substernal chest "pressure" without associated shortness of breath, nausea or diaphoresis. He presented to the emergency department in [place] where EKG did suggest inferior ischemic T wave changes. At the present time, he is resting comfortably and denying any chest pain, shortness of breath, dizziness, syncope, near syncope, palpitations, pedal edema, paroxysmal nocturnal dyspnea. PAST MEDICAL HISTORY: 1. Hypertension. 2. Diabetes. 3. Hyperlipidemia. PAST SURGICAL HISTORY: Right inguinal hernia repair and bilateral cataract surgery. CARDIAC MEDICATIONS AT HOME: 1. Aspirin 81 milligrams daily. 2. Spironolactone 100 milligrams daily. 3. Amlodipine 10 milligrams daily. 4. Atorvastatin 80 milligrams at bedtime. 5. Metoprolol tartrate 100 milligrams daily. 6. Lisinopril 40 milligrams daily. ALLERGIES: LEVAQUIN. FAMILY HISTORY: Noncontributory. SOCIAL HISTORY: The patient denies any history of alcohol or tobacco abuse. REVIEW OF SYSTEMS: Review of systems as in the history of present illness otherwise negative or noncontributory. He also denies headache, abdominal pain, melena, dyspepsia, bright red blood per rectum, cough, wheezing. PHYSICAL EXAMINATION: VITAL SIGNS: On physical examination, his blood pressure 146/80 with a pulse of 72, respirations 15. GENERAL: In general, he is a well-developed, well-nourished white male in no acute distress. HEAD, EYES, EARS, NOSE, THROAT: On HEENT examination, jugular venous pressure is normal. Carotid pulses are 2+ bilaterally and without bruits. CHEST: Examination of the chest reveals clear lung hollis. CARDIAC: On cardiac examination, he has a regular rhythm and rate without S3, S4 or murmur. ABDOMEN: On abdominal examination, he has a soft, nontender abdomen. Bowel sounds are present. There is no definite hepatosplenomegaly. EXTREMITIES: Examination of the extremities reveals no cyanosis, clubbing or edema. Peripheral pulses are normal throughout. LABORATORY DATA: BUN 26, creatinine 1.30, glucose 240, CK 113, troponin 0.05, potassium 4.3, WBC 7.5, hemoglobin 13.4, platelet count 242,000. EKG shows sinus rhythm, inferior T wave abnormality, consider ischemia. Chest x-ray shows no acute disease. IMPRESSION: Symptoms most suggestive of unstable angina in this 82-year-old white male with a history of hypertension, diabetes, hyperlipidemia. At this point, I would agree with the need for cardiac catheterization. He has had ongoing chest discomfort at rest today. He has a number of risk factors for coronary disease. His EKG changes are overall nonspecific, although suggest the possibility of inferior ischemia. Initial cardiac enzymes are overall negative for myocardial infarction. The nature of cardiac catheterization and the potential risks have been outlined. He agrees to proceed. Most likely he has severe multivessel coronary disease or severe left main disease. RECOMMENDATIONS: 1. Check a fasting lipid profile. 2. Continue his usual home cardiac medications. 3. Cardiac catheterization today. MD RAND Haley/BERNICE /2:10 PM /2:15 PM MTDChay
[2017-10-25] MEDS ORDERED: SODIUM CHLORIDE 0.9% FLUSH 10 ML FLUSH IV FLUSH PRN (14:45)
--- NOTE | 2017-10-25 14:46 | CATHPROC ---
[facility] HIS Report Study Information Study Number Admission Scheduled Start Study Start [id number] Oct 25 2017 11:20AM 10/25/2017 10/25/2017 Study Type [place] Service Left/Possible PCI Cardiac Catheterization Admit Source Facility Department Emergency department [facility] - Fmd Teacher Physician and Clinical Staff Initial Jose Vieyra Poultry Farm Manager Aman Alvarado,GEE Other Arlin Pittman BSN Other Arlin Pittman BSN Recorder Edna Sigala RCIS TECHYusuf Scrub Thao Rendon RT(R) Procedures Performed Procedure Location (Site) Vessel Name Coronary Angiograms LCA Left Coronary Coronary Angiograms RCA Right Coronary LV Gram-hand inj. LV LV Ventricle Equipment Time Master Printer Description Size Mfg Part Number Used/Scraped TRANSDUCER, TRUWAVE [id number] 13:49 CRISOSTOMO ROY * Used W/STOCKCOCK *[id number] *[id number] 13:49 [employer] PACK, CCL CUSTOM * Used *[id number] 13:49 [employer] PACER PEN, SKIN DUAL W/ RULER * Used *[id number] BAND, RADIAL COMPRESSION TR [id number] 14:30 [employer] MEDICAL 24CM Used SHORT 24 *[id number] 13:49 [employer] MEDICAL SHEATH, FR6.5 PRELUDE 11CM FR 6.5 038ACT Used *[id number] 13:49 [employer] WIRE, 3MMJ .035 180CM 180CM Used *[id number] 13:49 NAMIC MANIFOLD, 4 PORT * Used *[id number] 13:49 [employer]COMED OMNIPAQUE, 350 MG, 150ML 150ML [id number] Used [id number] 13:49 [employer] BLANKET,WARM AIR CCL * Used *[id number] CATHETER, FR5 OPTITORQUE [id number] 14:21 [employer] MEDICAL FR 5 Used RADIAL TIG 4.0 *[id number] History: Current Medications Medication Dosage/Unit Route Frequency Last Date/Time Taken ASA LOPRESSOR Statins (any) NORVASC LANTUS Insulin LISINOPRIL History: Allergies Allergy Reaction levofloxacin achilles tendon tear History: Risk Factors Family History of Hypertension Dyslipidemia Previous [place] Previous Heart Failure Premature CAD Yes Yes No No No Prior Valve Prior PCI Prior CABG Surgery No No No Cerebrovascular Peripheral Artery Chronic Lung On Dialysis Diabetes Diabetes Therapy Disease Disease Disease No No No No Yes Insulin History: Symptoms/Diagnosis Selection Items Chest pain SOB History: Stress Tests Stress or Imaging Studies Performed No History: Other Current Smoker No Labs Hgb (g/dl) Hct (%) WBC (l/cumm) Platelets (thousands) 11.60-17.00 35.00-51.00 4.00-11.00 150.00-450.00 13.4 40.7 7.5 242 Glucose (mg/dl) BUN (mg/dl) Creatinine (mg/dl) BUN:Creatinine (1:x) 74.00-106.00 7.00-18.00 0.50-1.30 10.00-20.00 240 26 1.3 20 Na (meq/l) K (meq/l) Cl (meq/l) CO2 (mmol/L) Ca (mg/dl) 136.00-145.00 3.50-5.10 98.00-107.00 21.00-32.00 8.50-10.10 137 4.3 106 24.5 8.4 PT (sec) PTT (sec) INR (PTT:PT) 9.80-11.60 24.30-30.10 0.90-1.10 10.1 24.1 1 Troponin I (ng/ml) CPK (u/l) CPK-MB (ng/ML) 0.02-0.05 26.00-308.00 0.50-3.60 0.05 113 3.8 Medication Medication Total Dose (Bolus/Oral) Medication Total Dosage/Unit 1% XYLOCAINE 20 mL RADIAL COCKTAIL 5 mL (Bolus) VERSED 2 mg Medications (Bolus/Oral) Medication Time Given Dosage/Unit Administered By Reason 1% XYLOCAINE 10/25/2017 2:20:01 PM 20 mL Jose German 20 mL 1% XYLOCAINE given in lab by Jose German in Right Radial via Subcutaneous. Ntg 200mcg Verapamil 2.5mg Heparin RADIAL COCKTAIL 10/25/2017 2:21:34 PM 5 mL (Bolus) Jose German 2500U 5 mL (Bolus) RADIAL COCKTAIL given in lab by Jose German in Right Radial via Radial. Using [Solution Name]. Reason: Ntg 200mcg Verapamil 2.5mg Heparin 2500U. VERSED 10/25/2017 2:44:14 PM 2 mg Aman Alvarado 2 mg VERSED given in lab by Aman Alvarado, RN in Right Antecubital via Peripheral IV. Ordered by Jose Ford. Medication (Drip) Medication Time Given Dosage/Unit Concentration/Unit Diluent (ml) Solution IV Solutions 10/25/2017 2:05:09 PM 0 mL (IV) 500 NaCl .9 IV Solutions given in lab by Arlin Pittman BSN in Right Antecubital via Peripheral IV. Pump/Dr ip Flow = 20 ml/hr using NaCl .9. Initial Case Assessment Cardiovascular HR Rhythm NIBP Chest Pain 68 sr 146/80 0 Circulatory - Right Pulses Dorsalis Pedis Femoral Radial 1 2 2 Scale (0,1,2,3,4,d) Circulatory - Left Pulses Dorsalis Pedis Femoral Radial 2 Scale (0,1,2,3,4,d) Neurological State Oriented to time-place- Alert Moves all extremities person Respiration - General Respiration Rate SpO2 (%) (B/min) 10 100 Final Case Assessment Cardiovascular HR Rhythm NIBP Chest Pain 68 sr 103/52 0 Circulatory - Right Pulses Dorsalis Pedis Femoral Radial 1 2 2 Scale (0,1,2,3,4,d) Scale (0,1,2,3,4,d) Neurological State Oriented to time-place- Alert Moves all extremities person Respiration - General Respiration Rate SpO2 (%) (B/min) 14 98 Chronological Log Time Study Chronological Log 14:03:01 Patient arrived via Bed. 14:03:02 Patient Name, D.O.B, / Armband Verified By R.N. 14:03:03 Consent signed by the physician and the patient and verified by the Fmd Teacher staff. 14:03:07 Pre-op and post- op instructions given; patient acknowledges understanding of instructions. 14:03:39 Verbal Stimulation=2 Physical Stimulation=2 Airway=2 Respiration=2 TOTAL=8. (0=absent, 1=li mited, 2=present) 14:04:54 Presedation assessment performed by Fmd Teacher RN. 14:04:56 Allens test performed on the right radial and ulnar artery. 14:04:59 Patient has been NPO for More than 6Hrs. 14:05:00 Skin Breakdown-none 14:05:03 Emilie Prominences Protected 14:05:08 A # 20 IV was noted in the Antecubital (right). Grade = patent IV Solutions given in lab by Arlin Pittman BSN in Right Antecubital via Peripheral IV. P ump/Drip Flow = 20 14:05:09 ml/hr using NaCl .9. 14:05:10 History and physical on the chart or being dictated. Assessment: Initial Case, HR=68 BPM, Rhythm=sr, GJPG=078/80 mmhg, Chest Pain=0 Right Pulses: Harsh Ped=1, Femoral=2, Radial=2 14:05:11 Left Pulses: Femoral=2 Neurological: State=Alert, Ox3, SALES Respiration: Resp=10 B/min, CxY1=894 % 14:05:54 MD arrived. 14:11:47 Reference ECG taken Vitals capture started with the following parameters, Patient=Adult, Interval=5 min, Initial Pr ubhfvz=934 mmHg, 14:11:53 Deflation Rate=5 mmHg, Cuff placed on Left Arm 14:12:24 Right groin and right wrist prepped with 2% chlorhexidine, and draped after a 3 min. waitin g time. 14:12:33 HR=68 bpm, RTXI=758/80 mmhg, SpO2=99.0 %, Resp=9 B/min 14:17:32 HR=68 bpm, XRJS=207/76 mmhg, SpO2=99.0 %, Resp=9 B/min Time Out. Correct patient, correct procedure, correct physician, power injector not loaded with contrast with surgical 14:19:12 team present. Time Out Concurred by MD and individual staff in procedure. 14:19:55 Pressure channel 1 zeroed. 14:20:00 Case Start 14:20:01 20 mL 1% XYLOCAINE given in lab by Jose German in Right Radial via Subcutaneous. 14:20:29 Access site was Radial Artery. Right 14:20:43 A SHEATH, FR6.5 PRELUDE 11CM FR 6.5 was advanced into the Radial (right) using the Percutan eous technique. 5 mL (Bolus) RADIAL COCKTAIL given in lab by Jose German in Right Radial via Radial. Using [So lution Name]. Reason: 14:21:34 Ntg 200mcg Verapamil 2.5mg Heparin 2500U. A CATHETER, FR5 OPTITORQUE RADIAL TIG 4.0 FR 5 was advanced over a wire. OMNIPAQUE, 350 MG, 150 ML 150ML 14:: was used for injections. 14:22:31 HR=77 bpm, JUXX=257/61 mmhg, ZbF2=614.0 %, Resp=7 B/min, Jeffery=10 Recorded Pressure: Ao, HR=74, Condition=Condition 1 14:23:52 (Aorta) Ao 94/54/73 14:24:08 The LCA was injected and visualized at various angles. OMNIPAQUE, 350 MG, 150ML 150ML used . 14:26:21 The RCA was injected and visualized at various angles. OMNIPAQUE, 350 MG, 150ML 150ML used . 14:27: Catheter was removed A MPA-2 INFINITI CATHETER FR 6 was advanced over a wire. OMNIPAQUE, 350 MG, 150ML 150ML was use d for 14:27:05 injections. 14:27:28 HR=73 bpm, QUVQ=234/60 mmhg, SpO2=97.0 %, Resp=6 B/min Recorded Pressure: LV, HR=73, Condition=Condition 1 14:28:42 (Left Ventricle) LV 97/2/8 14:28:54 The LV was manually injected with 10 cc's and visualized. OMNIPAQUE, 350 MG, 150ML 150ML us ed. Recorded Pressure: LV, Ao, HR=73, Condition=Condition 1 14:28:59 (Left Ventricle) LV 99/2/6, (Aorta) Ao 96/52/69 14:29:13 Catheter was removed 14::22 Case End 14:32:27 HR=68 bpm, FVQI=708/52 mmhg, SpO2=96 %, Resp=10 B/min Radial Compression Device Used. 9 mLs of air placed in BAND, RADIAL COMPRESSION TR SHORT 24 24 CM. Affected 14:32:40 hand 96 % O2 saturation. 14:34:20 No case complications noted. :: Cine recording checked. :: Bedside Report will be given. Assessment: Final Case, HR=68 BPM, Rhythm=sr, VUHT=627/52 mmhg, Chest Pain=0 Right Pulses: Harsh Ped=1, Femoral=2, Radial=2 14:34:26 Neurological: State=Alert, Ox3, SALES Respiration: Resp=14 B/min, SpO2=98 % 14:37:13 Vitals capture stopped. 14:37:46 Patient moved to bed 14:39:15 Patient transported to [facility] 14:44:14 2 mg VERSED given in lab by Aman Alvarado, RN in Right Antecubital via Peripheral IV. Ord ered by Jose German. End Study - Contrast Media Used In Study Contrast Total Opened (mL) Total Used (mL) Total Wasted (mL) Omnipaque 40 40 0 End Study - Maximum Contrast Load Max Contrast Load (mL) 309.6 End Study - Radiation Exposure Fluoro Time (minutes) 3.5 End Study - Sheaths Sheaths Pulled By Sheath Hold Time (min) Thao Rendon End Study - Patient Disposition Complications Transferred To Interventional Outcome No Telemetry Bed No attempt made
--- NOTE | 2017-10-25 14:49 | MA ---
cc: TELLY LA M.D. DATE: 10/25/2017. PROCEDURE PERFORMED: Left heart catheterization, selective coronary angiography, left ventriculography. PROCEDURE NOTES: The patient was brought to the cardiac catheterization laboratory in a fasting state after having signed informed consent. The right radial region was prepped and draped as per policy and anesthetized with 1% lidocaine. Arterial access was obtained via the right radial artery and a 6-Cameroonian sheath placed. Coronary arteriography was performed using a tiger catheter. Left ventriculography was done using a multipurpose catheter. There were no apparent immediate complications. A radial artery compression band was applied to his right wrist at the end of the case to achieve good hemostasis. HEMODYNAMIC RESULTS: Left ventricle 99 with an end-diastolic pressure of less than 10. Aorta 96/52 with a mean of 69. There was no significant transvalvular aortic gradient on pullback of the pigtail catheter. CORONARY ARTERIOGRAPHY: The patient's coronary vessels are heavily calcified. The left main has up to 90% distal stenosis. The left anterior descending is a medium-sized vessel which is diffusely diseased. There is likely up to 30% stenosis proximally and diffuse up to 15% stenosis in its mid to distal portion. The LAD gives rise to a relatively small caliber diagonal which has up to 50% stenosis proximally. The left circumflex is a small vessel giving rise to a large obtuse marginal. There may be up to 30% very proximal left circumflex disease. The obtuse marginal has diffuse proximal to mid disease resulting in up to 25% stenosis. Engagement of the right coronary was not possible. It appears to be totally occluded at its origin. There are good [id number] collaterals supplying a large posterolateral branch and a fairly large distal vessel. LEFT VENTRICULOGRAPHY: Contrast injection of the left ventricle reveals no segmental wall motion abnormalities. Ejection fraction is estimated at 60%. CONCLUSIONS: 1. 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 2. Normal left ventricular function with estimated ejection fraction of 60%. DISCUSSION: The patient will be referred for multivessel bypass surgery. MD RAND Haley/BERNICE /2:34 PM /2:41 PM NARCISO
[2017-10-25] MEDS ORDERED: MISC INFORMATION XX ONE (15:00)
[2017-10-25] MEDS ORDERED: NITROGLYCERIN 2% OINT 1 GM PACKET TOPICAL SCH (15:00)
[2017-10-25] MEDS ORDERED: HEPARIN SODIUM - IV 10,000 UNITS/10 ML VIAL IV PUSH ONE (15:00)
--- NOTE | 2017-10-25 15:28 | HHI.PR ---
Subjective Remarks in no acute distress. denies chest pain or sob at this time. no new complaints. family at the bedside. d/w the RN. Objective Vitals Vital Signs Date Time Temp Pulse Resp B/P (MAP) Pulse Ox O2 Delivery O2 Flow Rate FiO2 10/25/17 13:11 10/25/17 13:04 69 16 145/82 (103) 98 Nasal Cannula 2.00 10/25/17 12:19 76 16 143/80 (101) 99 Nasal Cannula 2.00 10/25/17 11:40 (114) 10/25/17 11:32 98 Room Air 10/25/17 11:32 97.7 87 16 162/90 (114) 98 Room Air 10/25/17 11:32 97.7 87 16 162/90 (114) 98 Room Air 10/25/17 11:32 Room Air Result Diagram: 10/25/17 1130 10/25/17 1130 Imaging Last Impressions Chest X-Ray 10/25/17 1124 Signed Impressions: Service Date/Time: Wednesday, October 25, 2017 11:30 - CONCLUSION: No acute disease. Ruddy Gonzalez MD Objective Remarks GENERAL: This is a well-nourished, well-developed patient, in no apparent distress. CARDIOVASCULAR: Regular rate and regular rhythm without murmurs, gallops, or rubs. RESPIRATORY: Clear to auscultation. Breath sounds equal bilaterally. No wheezes , rales, or rhonchi. GASTROINTESTINAL: Abdomen soft, non-tender, nondistended. Normal, active bowel sounds MUSCULOSKELETAL: Extremities without clubbing, cyanosis, or edema. NEURO: Alert & Oriented x4 to person, place, time, situation. Moves all ext x4 Procedures cardiac cath Medications and IVs Inpatient Medications Aspirin (Aspirin) 325 mg ONCE ONCE PO Last administered on 10/25/17at 12:00; Start 10/25/17 at 12:00; Stop 10/25/17 at 12:01; Status DC Atorvastatin Calcium (Lipitor) 80 mg HS PO ; Start 10/25/17 at 21:00 Heparin Sodium (Porcine) (Heparin Inj) 2,500 units UNSCH PRN IV PUSH APTT 25 TO 39; Start 10/25/17 at 21:00; Status UNV Heparin Sodium/ Dextrose 250 ml @ 0 mls/hr TITRATE PRN IV Coagulation Management; Start 10/25/17 at 15:00; Status UNV Lisinopril (Prinivil) 40 mg DAILY PO ; Start 10/26/17 at 09:00 Metoprolol Tartrate (Lopressor) 50 mg Q12HR PO ; Start 10/25/17 at 21:00 Miscellaneous Information 1 ONCE ONCE XX ; Start 10/25/17 at 15:00; Stop at 15:01; Status DC Nitroglycerin (Nitroglycerin 2% Oint) 1 inch Q6HR TOPICAL ; Start 10/25/17 at 15: 00 Sodium Chloride (NS Flush) 2 ml UNSCH PRN IV FLUSH FLUSH AFTER USING IV ACCESS ; Start 10/25/17 at 14:45 Spironolactone (Aldactone) 100 mg DAILY PO ; Start 10/26/17 at 09:00 A/P Assessment and Plan A/P - unstable angina s/p cardiac cath with Severe left main and severe right coronary disease. continue heparin drip, lisinopril, metoprolol and statin CT surgery consulted for cardiac bypass. will check lipid panel and A1c. -diabetes mellitus; resume long-acting insulin - accu-check with SSI continue to monitor and adjust the regimen as needed. -hypertension; continue metoprolol and lisinopril- will monitor. -DVT prophylaxis; on heparin drip. Attila Fam MD Oct 25, 2017 15:28
[2017-10-25] MEDS ORDERED: GLUCAGON 1 MG/ML VIAL OTHER PRN (15:30)
[2017-10-25] MEDS ORDERED: DEXTROSE 50% IN WATER 50 ML VIAL(D50) IV PUSH PRN (15:30)
[2017-10-25] MEDS: INSULIN ASPART SUPPLEMENTAL SCALE SQ SCH ×2 (16:39→21:20)
--- NOTE | 2017-10-25 18:55 | EKG ---
Date Performed: 10/25/2017 Time Performed: 11:25:51 PTAGE: 82 years EKG: Sinus rhythm WITH FIRST DEGREE AV BLOCK ABNORMAL ECG NO PREVIOUS TRACING DOCTOR: Varun Stinson Interpretating Date/Time 10/25/2017 18:54:24
[2017-10-25] MEDS: HEPARIN-D5W 25,000 U/250 ML 250 ML IV PRN (20:41)
[2017-10-25] MEDS ORDERED: HEPARIN SODIUM - IV 10,000 UNITS/10 ML VIAL IV PUSH PRN ×2 (21:00)
[2017-10-25] MEDS: ATORVASTATIN 40 MG TAB PO SCH (21:16)
[2017-10-25] MEDS: SODIUM CHLORIDE 0.9% FLUSH 10 ML FLUSH IV FLUSH SCH (21:16)
[2017-10-25] MEDS: METOPROLOL TARTRATE 50 MG TAB PO SCH (21:16)
[2017-10-25] MEDS: NITROGLYCERIN 2% OINT 1 GM PACKET TOPICAL SCH (21:17)
[2017-10-25] MEDS: INSULIN DETEMIR 100 UNITS/ML VIAL SQ SCH (21:20)
[2017-10-26] VITALS (30 sets, daily range): BP systolic 104–130; BP diastolic 59–73; PULSE 59–89; RESP 16–18; TEMP 97.8–98.5; O2SAT 96–98
[2017-10-26] MEDS: NITROGLYCERIN 2% OINT 1 GM PACKET TOPICAL SCH ×4 (03:27→21:00)
[2017-10-26 04:23] LABS: BICARBONATE 24.6 MEQ/L (21.0-32.0); CALCIUM 8.1 MG/DL (8.5-10.1); CREATININE 1.26 MG/DL (0.60-1.30)
[2017-10-26 04:26] LABS: CHOLESTEROL/ HDL RATIO 3.65 RATIO; HDL CHOLESTEROL 34.5 MG/DL (40.0-60.0)
[2017-10-26] MEDS: SPIRONOLACTONE 50 MG TAB PO SCH (08:21)
[2017-10-26] MEDS: METOPROLOL TARTRATE 50 MG TAB PO SCH ×2 (08:21→20:59)
[2017-10-26] MEDS: INSULIN ASPART SUPPLEMENTAL SCALE SQ SCH ×4 (08:24→21:06)
[2017-10-26] MEDS: SODIUM CHLORIDE 0.9% FLUSH 10 ML FLUSH IV FLUSH SCH ×2 (08:24→21:03)
--- NOTE | 2017-10-26 08:35 | HHI.PR ---
Subjective Remarks And some chest discomfort in the morning radiating to the left arm. No shortness of breath, palpitations, diaphoresis, nausea. No diarrhea or constipation however he says he takes MiraLAX at home daily. We'll resume MiraLAX. Objective Vitals Vital Signs Date Time Temp Pulse Resp B/P (MAP) Pulse Ox O2 Delivery O2 Flow Rate FiO2 10/26/17 07:52 97.8 69 18 107/62 (77) 96 10/26/17 07:00 67 10/26/17 06:00 62 10/26/17 05:00 62 10/26/17 04:00 62 10/26/17 03:35 63 16 104/59 (74) 96 10/26/17 03:00 59 10/26/17 02:00 60 10/26/17 01:00 66 10/26/17 00:00 64 10/25/17 23:38 76 16 115/64 (81) 97 10/25/17 23:00 77 10/25/17 22:00 76 10/25/17 21:00 78 10/25/17 20:00 98.3 75 16 109/60 (76) 97 10/25/17 20:00 74 10/25/17 19:00 72 10/25/17 18:00 74 10/25/17 17:00 70 10/25/17 16:00 70 10/25/17 15:05 97.5 65 20 117/65 (82) 97 10/25/17 15:00 64 10/25/17 13:11 10/25/17 13:04 69 16 145/82 (103) 98 Nasal Cannula 2.00 10/25/17 12:19 76 16 143/80 (101) 99 Nasal Cannula 2.00 10/25/17 11:40 (114) 10/25/17 11:32 98 Room Air 10/25/17 11:32 97.7 87 16 162/90 (114) 98 Room Air 10/25/17 11:32 97.7 87 16 162/90 (114) 98 Room Air 10/25/17 11:32 Room Air I/O 10/25/17 10/25/17 10/25/17 10/26/17 10/26/17 10/26/17 07:00 15:00 23:00 07:00 15:00 23:00 Intake Total 480 ml 342.4 ml Output Total 150 ml 400 ml Balance 330 ml -57.6 ml Intake Oral 480 ml 250 ml IV Total 92.4 ml Output Urine Total 150 ml 400 ml # Bowel Movements 0 Result Diagram: 10/25/17 1130 10/26/17 0305 Imaging Last Impressions Chest X-Ray 10/25/17 1124 Signed Impressions: Service Date/Time: Wednesday, October 25, 2017 11:30 - CONCLUSION: No acute disease. Ruddy Gonzalez MD Objective Remarks GENERAL: This is a well-nourished, well-developed patient, in no apparent distress. CARDIOVASCULAR: Regular rate and regular rhythm without murmurs, gallops, or rubs. RESPIRATORY: Clear to auscultation. Breath sounds equal bilaterally. No wheezes , rales, or rhonchi. GASTROINTESTINAL: Abdomen soft, non-tender, nondistended. Normal, active bowel sounds MUSCULOSKELETAL: Extremities without clubbing, cyanosis, or edema. NEURO: Alert & Oriented x4 to person, place, time, situation. Moves all ext x4 Procedures cardiac cath A/P Assessment and Plan Unstable angina CAD s/p cardiac cath with Severe left main and severe right coronary disease. continue heparin drip, lisinopril, metoprolol and statin CT surgery consulted for cardiac bypass. will check lipid panel and A1c. Continue Nitropaste Add morphine 2 mg every 4 hours when necessary for breakthrough chest pain. Diabetes mellitus type 2: resume long-acting insulin - accu-check with SSI continue to monitor and adjust the regimen as needed. Check A1c pending Hypertension: continue metoprolol and lisinopril- monitor and adjust meds as need. Constipation. Takes MiraLAX at home, resume home medication. Laxative/stool softeners as needed. DVT prophylaxis - on heparin drip. Discussed with the patient, nurse, family at bedside DC plan : plan for CABG Nikki An MD Oct 26, 2017 08:35
--- NOTE | 2017-10-26 08:54 | PD.CARD.PN ---
Subjective Subjective Remarks No further CP. No dyspnea, dizziness, wrist pain, palpitations. Objective Medications Item Value Date Time Lisinopril 40 mg 10/26/17 0900 (Prinivil) DAILY/PO Spironolactone 100 mg 10/26/17 0900 (Aldactone) DAILY/PO 10/26/17 08 Metoprolol 50 mg 10/25/17 2100 Tartrate Q12HR/PO 10/26/17 08 (Lopressor) Atorvastatin 80 mg 10/25/172099 Calcium HS/PO 10/25/172115 (Lipitor) Nitroglycerin 1 inch 10/25/172099 (Nitroglycerin Q6H/TOPICAL 10/26/17 08 2% Oint) Heparin Sodium/ 250 ml @ 10 mls/hr 10/25/17 1500 Dextrose TITRATE PRN/IV 10/25/172040 Current Medications Medications (Trade) Dose Ordered Sig/Uma Route Start Time Stop Time Status Last Admin (NS Flush) 2 ml BID IV FLUSH 10/25/17 21:00 10/25/17 21:16 (NS Flush) 2 ml UNSCH PRN IV FLUSH 10/25/17 14:45 (Heparin Inj) 5,000 units UNSCH PRN IV PUSH 10/25/17 21:00 (Heparin Inj) 2,500 units UNSCH PRN IV PUSH 10/25/17 21:00 10/26/17 04:30 Heparin Sodium/ Dextrose 250 ml @ 10 mls/hr TITRATE PRN IV 10/25/17 15:00 10/25/17 20:41 (Lopressor) 50 mg Q12HR PO 10/25/17 21:00 10/26/17 08:21 (Prinivil) 40 mg DAILY PO 10/26/17 09:00 (Aldactone) 100 mg DAILY PO 10/26/17 09:00 10/26/17 08:21 (Lipitor) 80 mg HS PO 10/25/17 21:00 10/25/17 21:16 (Levemir Inj) 10 units HS SQ 10/25/17 21:00 10/25/17 21:20 (D50w (Vial) Inj) 50 ml UNSCH PRN IV PUSH 10/25/17 15:30 (Glucagon Inj) 1 mg UNSCH PRN OTHER 2/2/18 15:30 (NovoLOG SUPPLEMENTAL SCALE) 1 ACHS SLIDING SCALE SQ 10/25/17 17:00 10/26/17 08:24 (Nitroglycerin 2% Oint) 1 inch Q6H TOPICAL 10/25/17 21:00 10/26/17 08:23 Vital Signs / I&O Vital Signs Date Time Temp Pulse Resp B/P (MAP) Pulse Ox O2 Delivery O2 Flow Rate FiO2 10/26/17 07:52 97.8 69 18 107/62 (77) 96 10/26/17 07:00 67 10/26/17 06:00 62 10/26/17 05:00 62 10/26/17 04:00 62 10/26/17 03:35 63 16 104/59 (74) 96 10/26/17 03:00 59 10/26/17 02:00 60 10/26/17 01:00 66 10/26/17 00:00 64 10/25/17 23:38 76 16 115/64 (81) 97 10/25/17 23:00 77 10/25/17 22:00 76 10/25/17 21:00 78 10/25/17 20:00 98.3 75 16 109/60 (76) 97 10/25/17 20:00 74 10/25/17 19:00 72 10/25/17 18:00 74 10/25/17 17:00 70 10/25/17 16:00 70 10/25/17 15:05 97.5 65 20 117/65 (82) 97 10/25/17 15:00 64 10/25/17 13:11 10/25/17 13:04 69 16 145/82 (103) 98 Nasal Cannula 2.00 10/25/17 12:19 76 16 143/80 (101) 99 Nasal Cannula 2.00 10/25/17 11:40 (114) 10/25/17 11:32 98 Room Air 10/25/17 11:32 97.7 87 16 162/90 (114) 98 Room Air 10/25/17 11:32 97.7 87 16 162/90 (114) 98 Room Air 10/25/17 11:32 Room Air I/O 10/25/17 10/25/17 10/25/17 10/26/17 10/26/17 10/26/17 07:00 15:00 23:00 07:00 15:00 23:00 Intake Total 480 ml 342.4 ml Output Total 150 ml 400 ml Balance 330 ml -57.6 ml Intake Oral 480 ml 250 ml IV Total 92.4 ml Output Urine Total 150 ml 400 ml # Bowel Movements 0 Physical Exam GENERAL: Well developed, well nourished. No acute distress. HEENT: Jugular venous pressure is normal. CHEST: Lungs clear to auscultation bilaterally. Unlabored respiratory effort. CARDIAC: Regular rate and rhythm without S3, S4, or murmur. ABDOMEN: Soft, nontender, no hepatosplenomegaly. Bowel sounds present. EXTREMITIES: No clubbing, cyanosis, or edema. Right radial arteriotomy site stable. Normal pulse. Laboratory Laboratory Tests Test 10/25/17 11:30 10/25/17 19:09 10/26/17 03:05 White Blood Count 7.5 TH/MM3 Red Blood Count 4.49 MIL/MM3 Hemoglobin 13.4 GM/DL Hematocrit 40.7 % Mean Corpuscular Volume 90.7 FL Mean Corpuscular Hemoglobin 29.9 PG Mean Corpuscular Hemoglobin Concent 33.0 % Red Cell Distribution Width 13.0 % Platelet Count 242 TH/MM3 Mean Platelet Volume 7.3 FL Neutrophils (%) (Auto) 81.2 % Lymphocytes (%) (Auto) 9.2 % Monocytes (%) (Auto) 8.3 % Eosinophils (%) (Auto) 0.9 % Basophils (%) (Auto) 0.4 % Neutrophils # (Auto) 6.1 TH/MM3 Lymphocytes # (Auto) 0.7 TH/MM3 Monocytes # (Auto) 0.6 TH/MM3 Eosinophils # (Auto) 0.1 TH/MM3 Basophils # (Auto) 0.0 TH/MM3 CBC Comment DIFF FINAL Differential Comment Prothrombin Time 10.1 SEC Prothromb Time International Ratio 1.0 RATIO Activated Partial Thromboplast Time 24.1 SEC 24.1 SEC 33.4 SEC Blood Urea Nitrogen 26 MG/DL 28 MG/DL Creatinine 1.30 MG/DL 1.26 MG/DL Random Glucose 240 MG/DL 198 MG/DL Calcium Level 8.4 MG/DL 8.1 MG/DL Sodium Level 137 MEQ/L 139 MEQ/L Potassium Level 4.3 MEQ/L 4.1 MEQ/L Chloride Level 106 MEQ/L 108 MEQ/L Carbon Dioxide Level 24.5 MEQ/L 24.6 MEQ/L Anion Gap 7 MEQ/L 6 MEQ/L Estimat Glomerular Filtration Rate 53 ML/MIN 55 ML/MIN Total Creatine Kinase 113 U/L Creatine Kinase MB 3.8 NG/ML Troponin I 0.05 NG/ML Triglycerides Level 136 MG/DL Cholesterol Level 126 MG/DL LDL Cholesterol 64 MG/DL HDL Cholesterol 34.5 MG/DL Cholesterol/HDL Ratio 3.65 RATIO Imaging Last 24 hours Impressions Chest X-Ray 10/25/17 1124 Signed Impressions: Service Date/Time: Wednesday, October 25, 2017 11:30 - CONCLUSION: No acute disease. Ruddy Gonzalez MD Assessment and Plan Problem List: (1) CAD (coronary artery disease) ICD Codes: I25.10 - Atherosclerotic heart disease of [place] coronary artery without angina pectoris Status: Chronic Plan: Stable overnight. Severe left main and severe RCA disease with normal EF. Rec CABG. Continue beta addis, aspirin, heparin drip. (2) Hyperlipidemia ICD Codes: E78.5 - Hyperlipidemia, unspecified Status: Chronic Plan: Good lipid profile. Continue statin therapy. (3) Hypertension ICD Codes: I10 - Essential (primary) hypertension Status: Chronic Plan: Stable. Normotensive. Code Status full code Discussed Condition With patient and family Problem Qualifiers (1) CAD (coronary artery disease): Qualified Codes: I25.110 - Atherosclerotic heart disease of [place] coronary artery with unstable angina pectoris (2) Hyperlipidemia: Qualified Codes: E78.2 - Mixed hyperlipidemia (3) Hypertension: Qualified Codes: I10 - Essential (primary) hypertension Jose German MD Oct 26, 2017 08:53
[2017-10-26] MEDS ORDERED: POLYETHYLENE GLYCOL 17 GM PKG PO ONE (10:30)
[2017-10-26] MEDS ORDERED: MORPHINE SULFATE 2 MG/ML INJ IV PUSH ONE (10:30)
[2017-10-26] MEDS ORDERED: MORPHINE SULFATE 2 MG/ML INJ IV PUSH PRN (10:30)
[2017-10-26] MEDS: LISINOPRIL 20 MG TAB PO SCH (11:05)
[2017-10-26] MEDS: ASPIRIN EC 81 MG TABEC PO SCH (11:05)
--- NOTE | 2017-10-26 11:57 | PD.CAR.PN ---
CVT Progress Note Subjective/Hospital Course: Pt examined and chart reviewed. Full consult dictated. Planned OR second case Saturday. Objective: Vital Signs Date Time Temp Pulse Resp B/P (MAP) Pulse Ox O2 Delivery O2 Flow Rate FiO2 10/26/17 11:01 97.8 67 18 125/71 (89) 97 10/26/17 09:00 70 10/26/17 08:00 76 10/26/17 07:52 97.8 69 18 107/62 (77) 96 10/26/17 07:00 67 10/26/17 06:00 62 10/26/17 05:00 62 10/26/17 04:00 62 10/26/17 03:35 63 16 104/59 (74) 96 10/26/17 03:00 59 10/26/17 02:00 60 10/26/17 01:00 66 10/26/17 00:00 64 10/25/17 23:38 76 16 115/64 (81) 97 10/25/17 23:00 77 10/25/17 22:00 76 10/25/17 21:00 78 10/25/17 20:00 98.3 75 16 109/60 (76) 97 10/25/17 20:00 74 10/25/17 19:00 72 10/25/17 18:00 74 10/25/17 17:00 70 10/25/17 16:00 70 10/25/17 15:05 97.5 65 20 117/65 (82) 97 10/25/17 15:00 64 10/25/17 13:11 10/25/17 13:04 69 16 145/82 (103) 98 Nasal Cannula 2.00 10/25/17 12:19 76 16 143/80 (101) 99 Nasal Cannula 2.00 Labs: Laboratory Tests Test 10/26/17 03:05 10/26/17 11:00 Activated Partial Thromboplast Time 33.4 SEC (24.3-30.1) 49.0 SEC (24.3-30.1) Blood Urea Nitrogen 28 MG/DL (7-18) Creatinine 1.26 MG/DL (0.60-1.30) Random Glucose 198 MG/DL (74-106) Calcium Level 8.1 MG/DL (8.5-10.1) Sodium Level 139 MEQ/L (136-145) Potassium Level 4.1 MEQ/L (3.5-5.1) Chloride Level 108 MEQ/L (98-107) Carbon Dioxide Level 24.6 MEQ/L (21.0-32.0) Anion Gap 6 MEQ/L (5-15) Estimat Glomerular Filtration Rate 55 ML/MIN (>89) Triglycerides Level 136 MG/DL (42-150) Cholesterol Level 126 MG/DL (120-200) LDL Cholesterol 64 MG/DL (0-99) HDL Cholesterol 34.5 MG/DL (40.0-60.0) Cholesterol/HDL Ratio 3.65 RATIO Result Diagram: 10/25/17 1130 10/26/17 0305 (1) CAD (coronary artery disease) Plan: Stable overnight. Severe left main and severe RCA disease with normal EF. Rec CABG. Continue beta addis, aspirin, heparin drip. (2) Hyperlipidemia Plan: Good lipid profile. Continue statin therapy. (3) Hypertension Plan: Stable. Normotensive. Problem Qualifiers (1) CAD (coronary artery disease): Qualified Codes: I25.110 - Atherosclerotic heart disease of [place] coronary artery with unstable angina pectoris (2) Hyperlipidemia: Qualified Codes: E78.2 - Mixed hyperlipidemia (3) Hypertension: Qualified Codes: I10 - Essential (primary) hypertension Lasha Good MD Oct 26, 2017 11:57
[2017-10-26] MEDS ORDERED: METOPROLOL TARTRATE 25 MG TAB PO SCH (12:00)
[2017-10-26] MEDS ORDERED: SODIUM CHLORIDE 0.9% FLUSH 10 ML FLUSH IV FLUSH PRN (12:00)
[2017-10-26] MEDS ORDERED: DEXTROSE 50% IN WATER 50 ML VIAL(D50) IV PUSH PRN (12:00)
[2017-10-26] MEDS ORDERED: INSULIN REGULAR (IV INFUSION) 100 UNITS in SODIUM CHLORIDE 0.9% INJ 99 ML IV PRN (12:00)
[2017-10-26] MEDS ORDERED: PAPAVERINE INJ 60 MG, NITROGLYCERIN INJ 100 MCG, DILTIAZEM INJ 100 MG in SODIUM CHLORID... IRRIGATION SCH (12:00)
[2017-10-26] MEDS ORDERED: ceFAZolin 2 GM PREMIX 50 ML IV SCH (12:00)
[2017-10-26] MEDS ORDERED: CHLORHEXIDINE GLUCONATE 4% SOLN 120 ML BTL TOPICAL SCH (12:00)
[2017-10-26] MEDS ORDERED: CEFAZOLIN INJ 500 MG in SODIUM CHLORIDE 0.9% IRR BTL 500 ML IRRIGATION SCH (12:00)
[2017-10-26] MEDS ORDERED: PILL SPLITTER OTHER PRN (12:30)
[2017-10-26 12:32] LABS: HEMOGLOBIN A1C 8.6 % (4.3-6.0)
--- NOTE | 2017-10-26 12:35 | PD.CAR.PN ---
CVT Progress Note Subjective/Hospital Course: Risk Model and Variables - [facility] Adult Cardiac Surgery Database Version 2.81 RISK SCORES About the STS Risk Calculator Procedure: CAB Only Risk of Mortality: 3.122% Morbidity or Mortality: 20.997% Long Length of Stay: 10.303% Short Length of Stay: 26.072% Permanent Stroke: 1.587% Prolonged Ventilation: 12.803% DSW Infection: 0.965% Renal Failure: 9.811% Reoperation: 6.981% Objective: Vital Signs Date Time Temp Pulse Resp B/P (MAP) Pulse Ox O2 Delivery O2 Flow Rate FiO2 10/26/17 11:01 97.8 67 18 125/71 (89) 97 10/26/17 09:00 70 10/26/17 08:00 76 10/26/17 07:52 97.8 69 18 107/62 (77) 96 10/26/17 07:00 67 10/26/17 06:00 62 10/26/17 05:00 62 10/26/17 04:00 62 10/26/17 03:35 63 16 104/59 (74) 96 10/26/17 03:00 59 10/26/17 02:00 60 10/26/17 01:00 66 10/26/17 00:00 64 10/25/17 23:38 76 16 115/64 (81) 97 10/25/17 23:00 77 10/25/17 22:00 76 10/25/17 21:00 78 10/25/17 20:00 98.3 75 16 109/60 (76) 97 10/25/17 20:00 74 10/25/17 19:00 72 10/25/17 18:00 74 10/25/17 17:00 70 10/25/17 16:00 70 10/25/17 15:05 97.5 65 20 117/65 (82) 97 10/25/17 15:00 64 10/25/17 13:11 10/25/17 13:04 69 16 145/82 (103) 98 Nasal Cannula 2.00 Labs: Laboratory Tests Test 10/26/17 03:05 10/26/17 11:00 Activated Partial Thromboplast Time 33.4 SEC (24.3-30.1) 49.0 SEC (24.3-30.1) Blood Urea Nitrogen 28 MG/DL (7-18) Creatinine 1.26 MG/DL (0.60-1.30) Random Glucose 198 MG/DL (74-106) Calcium Level 8.1 MG/DL (8.5-10.1) Sodium Level 139 MEQ/L (136-145) Potassium Level 4.1 MEQ/L (3.5-5.1) Chloride Level 108 MEQ/L (98-107) Carbon Dioxide Level 24.6 MEQ/L (21.0-32.0) Anion Gap 6 MEQ/L (5-15) Estimat Glomerular Filtration Rate 55 ML/MIN (>89) Triglycerides Level 136 MG/DL (42-150) Cholesterol Level 126 MG/DL (120-200) LDL Cholesterol 64 MG/DL (0-99) HDL Cholesterol 34.5 MG/DL (40.0-60.0) Cholesterol/HDL Ratio 3.65 RATIO Result Diagram: 10/25/17 1130 10/26/17 0302 (1) CAD (coronary artery disease) Plan: Stable overnight. Severe left main and severe RCA disease with normal EF. Rec CABG. Continue beta adids, aspirin, heparin drip. (2) Hyperlipidemia Plan: Good lipid profile. Continue statin therapy. (3) Hypertension Plan: Stable. Normotensive. Problem Qualifiers (1) CAD (coronary artery disease): Qualified Codes: I25.110 - Atherosclerotic heart disease of [place] coronary artery with unstable angina pectoris (2) Hyperlipidemia: Qualified Codes: E78.2 - Mixed hyperlipidemia (3) Hypertension: Qualified Codes: I10 - Essential (primary) hypertension Lasha Good MD Oct 26, 2017 12:35
--- NOTE | 2017-10-26 14:43 | MB ---
cc: TELLY LA M.D., ROHIT K. M.D. DATE OF CONSULTATION: 10/26/2017 REFERRING PHYSICIAN: Dr. La REASON FOR CONSULTATION: Multivessel coronary disease. HISTORY Mr. Naidu is a very pleasant 82-year-old gentleman with a known history of hypertension, diabetes mellitus and hyperlipidemia presents with an approximated [id number] day history of progressive substernal chest pain described as a pressure sensation. The patient was seen in the [place] emergency department where an EKG workup suggested evidence of cardiac ischemia and was transferred here for further management. On evaluation here. He was admitted that there denies any and shortness of breath or other associated features of nausea, diaphoresis or palpitations. Following admission here. He underwent a coronary angiogram by Dr. La yesterday revealing multivessel coronary disease with preserved ventricular function. I am now being consulted for surgical laceration therapy. At present time he remains pain free, hemodynamically stable with no evidence of ongoing ischemia. PAST MEDICAL HISTORY Significant for hypertension Diabetes mellitus Hyperlipidemia Arthritis. PAST SURGICAL HISTORY Remarkable for right inguinal hernia surgery Bilateral cataract surgery. ALLERGIES LEVOFLOXACIN MEDICATIONS ON ADMISSION 1. Aspirin. 2. Spironolactone 3. Amlodipine. 4. Atorvastatin XR. 5. Metoprolol 6. Lisinopril. SOCIAL HISTORY Denies any history of smoking, alcohol use or illicit drug use at FAMILY HISTORY Noncontributory. REVIEW OF SYSTEMS Review of systems as above. All other parameters negative. PHYSICAL EXAMINATION: On physical examination today he is 180 cm tall, weighs 80 kg, blood pressure is 125/71 with a heart rate of 70 which is regular, respiratory rate is 18 and he is afebrile. HEAD, EYES, EARS, NOSE, AND THROAT: Normocephalic, atraumatic. Pupils are reactive. Extraocular muscles intact. No cervical lymphadenopathy, carotid bruits or JVD. CARDIOVASCULAR SYSTEM: Regular rate and rhythm. Normal S1-S2 without gallops, rubs or murmurs. LUNGS: Clear to auscultation bilaterally with good exchange. ABDOMEN: Soft, nontender, nondistended. Normoactive bowel sounds. EXTREMITIES: Bilateral lower seen pulses are intact without cyanosis, clubbing or edema. No venous varicosities. NEUROLOGIC: Neurologically intact with no focal deficits. IMPRESSION 1. Unstable angina with multivessel coronary artery disease and associated left main stenosis. 2. Hypertension. 3. Hyperlipidemia 4. Diabetes mellitus. PLAN The clinical, and angiographic findings were discussed in detail with the patient and his daughter today. Therapeutic options available including coronary artery bypass grafting was recommended. I agree with Dr. La that he will benefit from bypass to his LAD, OM1, RPDA, and possibly the right posterior lateral branch of the coronary arteries. The risks, complications and benefits of the surgical procedure were discussed in detail and all questions answered. They appeared to comprehend the given information and wished to proceed with the planned operation. We will proceed with surgical procedure as described above Saturday as a second case. In the meantime, we will obtain vein mapping, PFTs and carotid duplex imaging. Thank you for allowing me to participate this patient care. Lasha Damon /12:27 PM /2:00 PM NARCISO
--- NOTE | 2017-10-26 15:27 | RADRPT ---
EXAM DATE/TIME: 10/26/2017 12:26 [facility] COMPARISON: No previous studies available for comparison. INDICATIONS : Preop cardiac surgery. MEDICAL HISTORY : Hypercholesterolemia. Osteoarthritis. Arthritis. HTN. Type I Diabetes. SURGICAL HISTORY : Bilateral cataracts. Cardiac cath. Right inguinal hernia repair. Right achilles tendon repair. ENCOUNTER: Initial ACUITY: 1 day PAIN SCORE: 0/10 LOCATION: Bilateral neck PEAK SYSTOLIC VELOCITIES (cm/sec): ICA/CCA RATIO: Right: 1.4 Left: 1.5 ICA: Right: 65 Left: 115 CCA: Right: 46 Left: 76 ECA: Right: 95 Left: 106 VERTEBRAL: Right: 38 antegrade Left: 28 antegrade Elevated flow velocities and ICA/CCA ratios have been found to correlate with increased degrees of vessel stenosis, calculated as percentage of diameter relative to a normal segment of distal ICA/CCA FINDINGS: Antegrade flow is seen in both vertebral arteries. There is mild to moderate atherosclerotic plaquing at the origin of both ICAs without any significant stenosis. CONCLUSION: No evidence for hemodynamically significant stenosis. Génesis Wilson MD on October 26, 2017 at 15:25 Board Certified Radiologist. This report was verified electronically.
--- NOTE | 2017-10-26 15:55 | RADRPT ---
EXAM DATE/TIME: 10/26/2017 12:51 [facility] COMPARISON: No previous studies available for comparison. INDICATIONS : Preop cardiac surgery. MEDICAL HISTORY : Hypercholesterolemia. Arthritis. Osteoarthritis. HTN. Type I Diabetes. SURGICAL HISTORY : Bilateral cataracts. Cardiac cath. Right inguinal hernia repair. Right achilles tendon repair. ENCOUNTER: Initial ACUITY: 1 day PAIN SCORE: 0/10 LOCATION: Bilateral leg. GREATER SAPHENOUS VEIN THIGH: PROXIMAL: Right 3 mm Left 4 mm MID: Right 3 mm Left 3 mm DISTAL: Right 2 mm Left 3 mm CALF: PROXIMAL: Right 2 mm Left 4 mm MID: Right 2 mm Left 2 mm DISTAL: Right 2 mm Left 2 mm FINDINGS: The venous system of the lower extremities are patent by color Doppler imaging. Measurements of the leg veins (in mm) are listed above. CONCLUSION: Normal study and measurements as above. Génesis Wilson MD on October 26, 2017 at 15:53 Board Certified Radiologist. This report was verified electronically.
--- NOTE | 2017-10-26 15:55 | RADRPT ---
EXAM DATE/TIME: 10/26/2017 12:41 [facility] COMPARISON: No previous studies available for comparison. INDICATIONS : Preop cardiac surgery. MEDICAL HISTORY : Hypercholesterolemia. Arthritis. Osteoarthritis. HTN. Type I Diabetes. SURGICAL HISTORY : Bilateral cataracts. Cardiac cath. Right inguinal hernia repair. Right achilles tendon repair. ENCOUNTER: Initial ACUITY: 1 day PAIN SCORE: 0/10 LOCATION: Bilateral leg. TECHNIQUE: Venous ultrasound of the left and right leg was performed from the inguinal ligament to the proximal calf. Real-time, color Doppler and spectral tracing, compression and augmentation techniques were us ed. FINDINGS: RIGHT LEG: There is normal compressibility of the deep venous system from the inguinal region to the proximal ca lf. No echogenic clot is seen in the lumen of the common femoral, femoral, popliteal, and posterior tibial veins. There is a normal response of the venous system to proximal and distal augmentation an d respiration. Approximate 6.1 cm partially ruptured Casillas's cyst is seen. LEFT LEG: There is normal compressibility of the deep venous system from the inguinal region to the proximal ca lf. No echogenic clot is seen in the lumen of the common femoral, femoral, popliteal, and posterior tibial veins. There is a normal response of the venous system to proximal and distal augmentation an d respiration. Approximate 9.5 cm complex Casillas's cyst is seen. CONCLUSION: Large bilateral complex Casillas's cyst and no evidence for DVT. Génesis Wilson MD on October 26, 2017 at 15:52 Board Certified Radiologist. This report was verified electronically.
[2017-10-26] MEDS: HEPARIN-D5W 25,000 U/250 ML 250 ML IV PRN (16:58)
[2017-10-26 17:02] LABS: AMORPHOUS SEDIMENT, URINE RARE; BILIRUBIN, URINE NEG (NEG); BLOOD, URINE NEG (NEG); GLUCOSE,URINE 1000 mg/dL (NEG); KETONE, URINE NEG (NEG); NITRITE,URINE NEG (NEG); PH, URINE 5.5 (5.0-8.5); SQUAMOUS EPITHELIAL CELL URINE <1 /hpf (0-5); URINE COLOR LIGHT-YELLOW (YELLW/STRAW); URINE LEUKOCYTE ESTERASE NEG (NEG)
[2017-10-26] MEDS: ATORVASTATIN 40 MG TAB PO SCH (20:59)
[2017-10-26] MEDS ORDERED: SODIUM CHLORIDE 0.9% FLUSH 10 ML FLUSH IV FLUSH SCH (21:00)
[2017-10-26] MEDS: MUPIROCIN 2% OINT 1 APPLIC/GM SYR EACH NARE SCH (21:03)
[2017-10-26] MEDS: INSULIN DETEMIR 100 UNITS/ML VIAL SQ SCH (21:05)
[2017-10-27] VITALS (29 sets, daily range): BP systolic 111–140; BP diastolic 60–83; PULSE 60–99; RESP 16–18; TEMP 97.5–98.7; O2SAT 96–99
[2017-10-27] MEDS: NITROGLYCERIN 2% OINT 1 GM PACKET TOPICAL SCH ×4 (03:28→21:43)
[2017-10-27 08:10] LABS: AUTOMATED NEUTROPHIL # 4.2 TH/MM3 (1.8-7.7); BASOPHIL # 0.1 TH/MM3 (0-0.2); BASOPHIL % 0.9 % (0.0-2.0); EOSINOPHIL # 0.2 TH/MM3 (0-0.4); EOSINOPHIL % 3.3 % (0.0-4.0); HEMATOCRIT 34.8 % (39.0-51.0); HEMOGLOBIN 11.8 GM/DL (13.0-17.0); LYMPH % 19.5 % (9.0-44.0); LYMPHOCYTE # 1.3 TH/MM3 (1.0-4.8); MEAN CELL VOLUME 90.7 FL (80.0-100.0); MEAN CORPUSCULAR HEMOGLOBIN 30.8 PG (27.0-34.0); MEAN CORPUSCULAR HGB CONC 33.9 % (32.0-36.0); MEAN PLATELET VOLUME 7.6 FL (7.0-11.0); MONO % 11.2 % (0.0-8.0); MONOCYTE # 0.7 TH/MM3 (0-0.9); NEUT % 65.1 % (16.0-70.0); PLATELET COUNT 182 TH/MM3 (150-450); RED BLOOD COUNT 3.84 MIL/MM3 (4.50-5.90); RED CELL DISTRIBUTION WIDTH 13.7 % (11.6-17.2); WHITE BLOOD COUNT 6.4 TH/MM3 (4.0-11.0)
[2017-10-27] MEDS: ASPIRIN EC 81 MG TABEC PO SCH (08:15)
[2017-10-27] MEDS: MUPIROCIN 2% OINT 1 APPLIC/GM SYR EACH NARE SCH ×2 (08:15→21:42)
[2017-10-27] MEDS: POLYETHYLENE GLYCOL 17 GM PKG PO SCH (08:16)
[2017-10-27] MEDS: INSULIN ASPART SUPPLEMENTAL SCALE SQ SCH ×4 (08:16→21:42)
[2017-10-27] MEDS: LISINOPRIL 20 MG TAB PO SCH (08:16)
[2017-10-27] MEDS: SPIRONOLACTONE 50 MG TAB PO SCH (08:17)
[2017-10-27] MEDS: METOPROLOL TARTRATE 50 MG TAB PO SCH ×2 (08:17→21:41)
[2017-10-27] MEDS: SODIUM CHLORIDE 0.9% FLUSH 10 ML FLUSH IV FLUSH SCH ×2 (08:17→21:42)
[2017-10-27 08:25] LABS: BICARBONATE 25.7 MEQ/L (21.0-32.0); CALCIUM 8.3 MG/DL (8.5-10.1); CREATININE 1.17 MG/DL (0.60-1.30)
[2017-10-27 09:32] LABS: LYMPHOCYTES 23 % (9-44); MONOCYTES 8 % (0-8); MYELOCYTES 3 % (0-0); NEUTROPHIL # MANUAL DIFF 4.4 TH/MM3 (1.8-7.7); POLYS (SEG NEUTROPHILS) 65 % (16-70)
--- NOTE | 2017-10-27 09:59 | HHI.PR ---
Subjective Remarks Patient is in the chair, he appears in not acute distress at this time. No chest pain overnight, pain in his left hand is controlled by medications, he feels fairly well today. No palpitations, diaphoresis, nausea, lightheadedness. He had a normal bowel movement in the morning, nausea or vomiting no diarrhea or constipation. Objective Vitals Vital Signs Date Time Temp Pulse Resp B/P (MAP) Pulse Ox O2 Delivery O2 Flow Rate FiO2 10/27/17 07:17 97.5 69 18 126/72 (90) 96 10/27/17 06:00 66 10/27/17 05:00 68 10/27/17 04:00 64 10/27/17 03:33 63 16 111/60 (77) 97 10/27/17 03:00 66 10/27/17 02:00 64 10/27/17 01:00 62 10/27/17 00:00 60 10/26/17 23:45 75 16 111/64 (80) 98 10/26/17 23:00 78 10/26/17 22:00 80 10/26/17 21:00 86 10/26/17 20:00 86 10/26/17 19:40 98.5 86 16 112/66 (81) 97 10/26/17 19:00 89 10/26/17 18:00 88 10/26/17 17:00 84 10/26/17 16:18 98.0 81 16 130/73 (92) 96 10/26/17 16:00 80 10/26/17 15:00 64 10/26/17 14:00 72 10/26/17 13:00 64 10/26/17 12:00 66 10/26/17 11:01 97.8 67 18 125/71 (89) 97 10/26/17 11:00 67 10/26/17 10:00 68 I/O 10/26/17 10/26/17 10/26/17 10/27/17 10/27/17 10/27/17 07:00 15:00 23:00 07:00 15:00 23:00 Intake Total 342.4 ml 842 ml 240 ml Output Total 400 ml 900 ml 500 ml Balance -57.6 ml -58 ml -260 ml Intake Oral 250 ml 720 ml 240 ml IV Total 92.4 ml 122 ml Output Urine Total 400 ml 900 ml 500 ml # Bowel Movements 0 2 0 Result Diagram: 10/27/17 0650 10/27/17 0650 Imaging Last Impressions Lower Extremity Ultrasound 10/26/17 0000 Signed Impressions: Service Date/Time: Thursday, October 26, 2017 12:51 - CONCLUSION: Normal study and measurements as above. Génesis Wilson MD Carotid Artery Ultrasound 10/26/17 0000 Signed Impressions: Service Date/Time: Thursday, October 26, 2017 12:26 - CONCLUSION: No evidence for hemodynamically significant stenosis. Génesis Wilson MD Chest X-Ray 10/25/17 1124 Signed Impressions: Service Date/Time: Wednesday, October 25, 2017 11:30 - CONCLUSION: No acute disease. Ruddy Gonzalez MD Objective Remarks GENERAL: This is a well-nourished, well-developed patient, in no apparent distress. CARDIOVASCULAR: Regular rate and regular rhythm without murmurs, gallops, or rubs. RESPIRATORY: Clear to auscultation. Breath sounds equal bilaterally. No wheezes , rales, or rhonchi. GASTROINTESTINAL: Abdomen soft, non-tender, nondistended. Normal, active bowel sounds MUSCULOSKELETAL: Extremities without clubbing, cyanosis, or edema. NEURO: Alert & Oriented x4 to person, place, time, situation. Moves all ext x4 Procedures cardiac cath A/P Assessment and Plan Unstable angina CAD s/p cardiac cath with Severe left main and severe right coronary disease. continue heparin drip, lisinopril, metoprolol and statin CT surgery consulted for cardiac bypass. lipid panel reviewed an suboptimal start statin A1c at 8.6 with DM Check 2D ECHO Continue Nitropaste Add morphine 2 mg every 4 hours when necessary for breakthrough chest pain. Diabetes mellitus type 2, uncontrolled A1c of 8.6: resume long-acting insulin - accu-check with SSI continue to monitor and adjust the regimen as needed. 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 Constipation. Resolved. Takes MiraLAX at home, resume home medication. Laxative/stool softeners as needed. DVT prophylaxis - on heparin drip. Discussed with the patient, nurse, family at bedside DC plan : plan for CABG on Saturday ~11 am Nikki An MD Oct 27, 2017 09:59
--- NOTE | 2017-10-27 10:51 | PD.CAR.PN ---
CVT Progress Note Subjective/Hospital Course: OR in am Objective: Vital Signs Date Time Temp Pulse Resp B/P (MAP) Pulse Ox O2 Delivery O2 Flow Rate FiO2 10/27/17 10:00 76 10/27/17 09:00 74 10/27/17 08:00 68 10/27/17 07:17 97.5 69 18 126/72 (90) 96 10/27/17 07:00 73 10/27/17 06:00 66 10/27/17 05:00 68 10/27/17 04:00 64 10/27/17 03:33 63 16 111/60 (77) 97 10/27/17 03:00 66 10/27/17 02:00 64 10/27/17 01:00 62 10/27/17 00:00 60 10/26/17 23:45 75 16 111/64 (80) 98 10/26/17 23:00 78 10/26/17 22:00 80 10/26/17 21:00 86 10/26/17 20:00 86 10/26/17 19:40 98.5 86 16 112/66 (81) 97 10/26/17 19:00 89 10/26/17 18:00 88 10/26/17 17:00 84 10/26/17 16:18 98.0 81 16 130/73 (92) 96 10/26/17 16:00 80 10/26/17 15:00 64 10/26/17 14:00 72 10/26/17 13:00 64 10/26/17 12:00 66 10/26/17 11:01 97.8 67 18 125/71 (89) 97 10/26/17 11:00 67 Labs: Laboratory Tests Test 10/27/17 06:50 White Blood Count 6.4 TH/MM3 (4.0-11.0) Red Blood Count 3.84 MIL/MM3 (4.50-5.90) Hemoglobin 11.8 GM/DL (13.0-17.0) Hematocrit 34.8 % (39.0-51.0) Mean Corpuscular Volume 90.7 FL (80.0-100.0) Mean Corpuscular Hemoglobin 30.8 PG (27.0-34.0) Mean Corpuscular Hemoglobin Concent 33.9 % (32.0-36.0) Red Cell Distribution Width 13.7 % (11.6-17.2) Platelet Count 182 TH/MM3 (150-450) Mean Platelet Volume 7.6 FL (7.0-11.0) Neutrophils (%) (Auto) 65.1 % (16.0-70.0) Lymphocytes (%) (Auto) 19.5 % (9.0-44.0) Monocytes (%) (Auto) 11.2 % (0.0-8.0) Eosinophils (%) (Auto) 3.3 % (0.0-4.0) Basophils (%) (Auto) 0.9 % (0.0-2.0) Neutrophils # (Auto) 4.2 TH/MM3 (1.8-7.7) Lymphocytes # (Auto) 1.3 TH/MM3 (1.0-4.8) Monocytes # (Auto) 0.7 TH/MM3 (0-0.9) Eosinophils # (Auto) 0.2 TH/MM3 (0-0.4) Basophils # (Auto) 0.1 TH/MM3 (0-0.2) CBC Comment AUTO DIFF Differential Total Cells Counted 100 Neutrophils % (Manual) 65 % (16-70) Lymphocytes % 23 % (9-44) Monocytes % 8 % (0-8) Eosinophils % 1 % (0-4) Neutrophils # (Manual) 4.4 TH/MM3 (1.8-7.7) Myelocytes 3 % (0-0) Differential Comment FINAL DIFF MANUAL Platelet Estimate NORMAL (NORMAL) Platelet Morphology Comment NORMAL (NORMAL) Red Cell Morphology Comment NORMAL (NORMAL) Activated Partial Thromboplast Time 46.4 SEC (24.3-30.1) Blood Urea Nitrogen 24 MG/DL (7-18) Creatinine 1.17 MG/DL (0.60-1.30) Random Glucose 218 MG/DL (74-106) Calcium Level 8.3 MG/DL (8.5-10.1) Sodium Level 138 MEQ/L (136-145) Potassium Level 4.3 MEQ/L (3.5-5.1) Chloride Level 104 MEQ/L (98-107) Carbon Dioxide Level 25.7 MEQ/L (21.0-32.0) Anion Gap 8 MEQ/L (5-15) Estimat Glomerular Filtration Rate 60 ML/MIN (>89) Result Diagram: 10/27/1750 10/27/17649 (1) CAD (coronary artery disease) Plan: Stable overnight. Severe left main and severe RCA disease with normal EF. Rec CABG. Continue beta addis, aspirin, heparin drip. (2) Hyperlipidemia Plan: Good lipid profile. Continue statin therapy. (3) Hypertension Plan: Stable. Normotensive. Problem Qualifiers (1) CAD (coronary artery disease): Qualified Codes: I25.110 - Atherosclerotic heart disease of [place] coronary artery with unstable angina pectoris (2) Hyperlipidemia: Qualified Codes: E78.2 - Mixed hyperlipidemia (3) Hypertension: Qualified Codes: I10 - Essential (primary) hypertension Lasha Good MD Oct 27, 2017 10:50
--- NOTE | 2017-10-27 10:53 | PD.CARD.PN ---
Subjective Subjective Remarks Feels "great". No further CP. No dyspnea, dizziness, palpitations. Objective Medications Item Value Date Time Lisinopril 40 mg 10/26/17 0900 (Prinivil) DAILY/PO 10/27/17 0816 Spironolactone 100 mg 10/26/17 09 (Aldactone) DAILY/PO 10/27/17 0817 Aspirin 81 mg 10/26/17 0900 (Ecotrin Ec) DAILY/PO 10/27/17 0815 Atorvastatin 80 mg 10/25/17 2100 Calcium HS/PO 10/26/172058 (Lipitor) Metoprolol 50 mg 10/25/17 2100 Tartrate Q12HR/PO 10/27/17 08 (Lopressor) Nitroglycerin 1 inch 10/25/172099 (Nitroglycerin Q6H/TOPICAL 10/27/17 0816 2% Oint) Heparin Sodium/ 250 ml @ 10 mls/hr 10/25/17 1500 Dextrose TITRATE PRN/IV 10/26/17 1658 Current Medications Medications (Trade) Dose Ordered Sig/Uma Route Start Time Stop Time Status Last Admin (NS Flush) 2 ml BID IV FLUSH 10/25/17 21:00 10/26/17 21:03 (NS Flush) 2 ml UNSCH PRN IV FLUSH 10/25/17 14:45 (Heparin Inj) 5,000 units UNSCH PRN IV PUSH 10/25/17 21:00 (Heparin Inj) 2,500 units UNSCH PRN IV PUSH 10/25/17 21:00 10/26/17 04:30 Heparin Sodium/ Dextrose 250 ml @ 10 mls/hr TITRATE PRN IV 10/25/17 15:00 10/26/17 16:58 (Lopressor) 50 mg Q12HR PO 10/25/17 21:00 10/27/17 08:17 (Prinivil) 40 mg DAILY PO 10/26/17 09:00 10/27/17 08:16 (Aldactone) 100 mg DAILY PO 10/26/17 09:00 10/27/17 08:17 (Lipitor) 80 mg HS PO 10/25/17 21:00 10/26/17 20:59 (Levemir Inj) 10 units HS SQ 10/25/17 21:00 10/26/17 21:05 (D50w (Vial) Inj) 50 ml UNSCH PRN IV PUSH 10/25/17 15:30 10/28/17 08:59 (Glucagon Inj) 1 mg UNSCH PRN OTHER 10/25/17 15:30 10/28/17 08:59 (NovoLOG SUPPLEMENTAL SCALE) 1 ACHS SLIDING SCALE SQ 10/25/17 17:00 10/28/17 08:59 10/27/17 08:16 (Nitroglycerin 2% Oint) 1 inch Q6H TOPICAL 10/25/17 21:00 10/27/17 08:16 (Ecotrin Ec) 81 mg DAILY PO 10/26/17 09:00 10/27/17 08:15 (Miralax) 17 gm DAILY PO 10/27/17 09:00 10/27/17 08:16 (Morphine Inj) 2 mg Q4H PRN IV PUSH 10/26/17 10:30 Papaverine HCl 60 mg/Nitroglycerin 100 mcg/Diltiazem HCl 100 mg/Sodium Chloride 100 ml @ 0 mls/hr TOOLING SUPERVISOR IRRIGATION 10/26/17 12:00 11/02/17 11:59 Cefazolin Sodium 500 mg/Sodium Chloride 505 ml @ 0 mls/hr TOOLING SUPERVISOR IRRIGATION 10/26/17 12:00 11/02/17 11:59 Cefazolin Sodium/ Dextrose 50 ml @ 150 mls/hr TOOLING SUPERVISOR IV 10/26/17 12:00 11/02/17 11:59 (Lopressor) 12.5 mg TOOLING SUPERVISOR PO 10/26/17 12:00 11/02/17 11:59 (Bactroban Nasal 2% Oint) 1 applic BID EACH NARE 10/26/17 21:00 10/31/17 20:59 10/27/17 08:15 (Hibiclens 4% Top Soln) 1 applic TOOLING SUPERVISOR TOPICAL 10/26/17 12:00 11/02/17 11:59 (D50w (Vial) Inj) 50 ml UNSCH PRN IV PUSH 10/26/17 12:00 (Pill Splitter) 1 ea UNSCH PRN OTHER 10/26/17 12:30 Insulin Human Regular 100 units/ Sodium Chloride 100 ml @ 3 mls/hr TITRATE PRN IV 10/28/17 09:00 11/02/17 08:59 Vital Signs / I&O Vital Signs Date Time Temp Pulse Resp B/P (MAP) Pulse Ox O2 Delivery O2 Flow Rate FiO2 10/27/17 10:00 76 10/27/17 09:00 74 10/27/17 08:00 68 10/27/17 07:17 97.5 69 18 126/72 (90) 96 10/27/17 07:00 73 10/27/17 06:00 66 10/27/17 05:00 68 10/27/17 04:00 64 10/27/17 03:33 63 16 111/60 (77) 97 10/27/17 03:00 66 10/27/17 02:00 64 10/27/17 01:00 62 10/27/17 00:00 60 10/26/17 23:45 75 16 111/64 (80) 98 10/26/17 23:00 78 10/26/17 22:00 80 10/26/17 21:00 86 10/26/17 20:00 86 10/26/17 19:40 98.5 86 16 112/66 (81) 97 10/26/17 19:00 89 10/26/17 18:00 88 10/26/17 17:00 84 10/26/17 16:18 98.0 81 16 130/73 (92) 96 10/26/17 16:00 80 10/26/17 15:00 64 10/26/17 14:00 72 10/26/17 13:00 64 10/26/17 12:00 66 10/26/17 11:01 97.8 67 18 125/71 (89) 97 10/26/17 11:00 67 I/O 10/26/17 10/26/17 10/26/17 10/27/17 10/27/17 10/27/17 07:00 15:00 23:00 07:00 15:00 23:00 Intake Total 342.4 ml 842 ml 240 ml Output Total 400 ml 900 ml 500 ml Balance -57.6 ml -58 ml -260 ml Intake Oral 250 ml 720 ml 240 ml IV Total 92.4 ml 122 ml Output Urine Total 400 ml 900 ml 500 ml # Bowel Movements 0 2 0 Physical Exam GENERAL: Well developed, well nourished. No acute distress. HEENT: Jugular venous pressure is normal. CHEST: Lungs clear to auscultation bilaterally. CARDIAC: Regular rate and rhythm without S3, S4, or murmur. ABDOMEN: Soft, nontender, no hepatosplenomegaly. Bowel sounds present. EXTREMITIES: No clubbing, cyanosis, or edema. Laboratory Laboratory Tests Test 10/26/17 11:00 10/26/17 16:39 10/26/17 18:05 10/27/17 06:50 Activated Partial Thromboplast Time 49.0 SEC 43.3 SEC 46.4 SEC Urine Color LIGHT-YELLOW Urine Turbidity CLEAR Urine pH 5.5 Urine Specific [place] 1.009 Urine Protein NEG mg/dL Urine Glucose (UA) 1000 mg/dL Urine Ketones NEG mg/dL Urine Occult Blood NEG Urine Nitrite NEG Urine Bilirubin NEG Urine Urobilinogen LESS THAN 2.0 MG/DL Urine Leukocyte Esterase NEG Urine RBC LESS THAN 1 /hpf Urine WBC LESS THAN 1 /hpf Urine Squamous Epithelial Cells <1 /hpf Urine Amorphous Sediment RARE Microscopic Urinalysis Comment CULT NOT INDICATED Nasal Screen MRSA (PCR) MRSA NOT DETECTED White Blood Count 6.4 TH/MM3 Red Blood Count 3.84 MIL/MM3 Hemoglobin 11.8 GM/DL Hematocrit 34.8 % Mean Corpuscular Volume 90.7 FL Mean Corpuscular Hemoglobin 30.8 PG Mean Corpuscular Hemoglobin Concent 33.9 % Red Cell Distribution Width 13.7 % Platelet Count 182 TH/MM3 Mean Platelet Volume 7.6 FL Neutrophils (%) (Auto) 65.1 % Lymphocytes (%) (Auto) 19.5 % Monocytes (%) (Auto) 11.2 % Eosinophils (%) (Auto) 3.3 % Basophils (%) (Auto) 0.9 % Neutrophils # (Auto) 4.2 TH/MM3 Lymphocytes # (Auto) 1.3 TH/MM3 Monocytes # (Auto) 0.7 TH/MM3 Eosinophils # (Auto) 0.2 TH/MM3 Basophils # (Auto) 0.1 TH/MM3 CBC Comment AUTO DIFF Differential Total Cells Counted 100 Neutrophils % (Manual) 65 % Lymphocytes % 23 % Monocytes % 8 % Eosinophils % 1 % Neutrophils # (Manual) 4.4 TH/MM3 Myelocytes 3 % Differential Comment FINAL DIFF MANUAL Platelet Estimate NORMAL Platelet Morphology Comment NORMAL Red Cell Morphology Comment NORMAL Blood Urea Nitrogen 24 MG/DL Creatinine 1.17 MG/DL Random Glucose 218 MG/DL Calcium Level 8.3 MG/DL Sodium Level 138 MEQ/L Potassium Level 4.3 MEQ/L Chloride Level 104 MEQ/L Carbon Dioxide Level 25.7 MEQ/L Anion Gap 8 MEQ/L Estimat Glomerular Filtration Rate 60 ML/MIN Assessment and Plan Problem List: (1) CAD (coronary artery disease) ICD Codes: I25.10 - Atherosclerotic heart disease of [place] coronary artery without angina pectoris Status: Chronic Plan: Stable overnight. Severe left main and severe RCA disease by cath with normal EF. Await CABG tomorrow. Continue beta addis, aspirin, heparin drip. (2) Hyperlipidemia ICD Codes: E78.5 - Hyperlipidemia, unspecified Status: Chronic Plan: Good lipid profile. Continue statin therapy. (3) Hypertension ICD Codes: I10 - Essential (primary) hypertension Status: Chronic Plan: Stable. Normotensive. Code Status full code Discussed Condition With patient and family Problem Qualifiers (1) CAD (coronary artery disease): Qualified Codes: I25.110 - Atherosclerotic heart disease of [place] coronary artery with unstable angina pectoris (2) Hyperlipidemia: Qualified Codes: E78.2 - Mixed hyperlipidemia (3) Hypertension: Qualified Codes: I10 - Essential (primary) hypertension Jose German MD Oct 27, 2017 10:53
[2017-10-27] MEDS: HEPARIN-D5W 25,000 U/250 ML 250 ML IV PRN (14:44)
[2017-10-27] MEDS ORDERED: CHLORHEXIDINE GLUCONATE 2 % 1 PACK (2 CLOTHS) TOPICAL PRN (21:30)
[2017-10-27] MEDS ORDERED: SODIUM CHLORID 0.9% 500 ML IV PRN (21:30)
[2017-10-27] MEDS ORDERED: LACTATED RINGER'S 1000 ML IV PRN (21:30)
[2017-10-27] MEDS ORDERED: POVIDONE IODINE 5% (ANTISEPSIS KIT) 4 APPLICATIONS EACH NARE PRN (21:30)
[2017-10-27] MEDS: ATORVASTATIN 40 MG TAB PO SCH (21:41)
[2017-10-27] MEDS: INSULIN DETEMIR 100 UNITS/ML VIAL SQ SCH (21:42)
[2017-10-28] VITALS (19 sets, daily range): BP systolic 108–137; BP diastolic 41–87; PULSE 60–90; RESP 11–16; TEMP 94.4–98; O2SAT 96–99
[2017-10-28] MEDS: NITROGLYCERIN 2% OINT 1 GM PACKET TOPICAL SCH ×4 (03:00→21:00)
[2017-10-28] MEDS: METOPROLOL TARTRATE 50 MG TAB PO SCH ×2 (05:50→22:07)
[2017-10-28] MEDS ORDERED: HEPARIN SODIUM - IV 10,000 UNITS/10 ML VIAL ONE ×2 (06:38→06:40)
[2017-10-28] MEDS ORDERED: VANCOMYCIN HCL 1000 MG VIAL ONE (06:39)
[2017-10-28] MEDS ORDERED: ceFAZolin 2 GM PREMIX 50 ML ONE (06:39)
[2017-10-28] MEDS ORDERED: INSULIN REGULAR (IV INFUSION) 100 UNITS in SODIUM CHLORIDE 0.9% INJ 99 ML IV PRN (07:00)
--- NOTE | 2017-10-28 07:29 | HHI.PR ---
Subjective Remarks Went for CABG, seen at night after CABG, patient is extubated, satting well on 4L by NC/ He is complaining of some nausea and also epigastric discomfort. Received tums and zofran. Also BP was elevated earlier better controlled now. Objective Vitals Vital Signs Date Time Temp Pulse Resp B/P (MAP) Pulse Ox O2 Delivery O2 Flow Rate FiO2 10/28/17 06:00 74 10/28/17 05:40 97.7 70 16 137/73 (94) 98 10/28/17 05:00 68 10/28/17 04:00 68 10/28/17 03:32 73 16 124/72 (89) 96 10/28/17 03:00 69 10/28/17 02:00 72 10/28/17 01:00 78 10/28/17 00:00 84 10/27/17 23:37 99 16 140/83 (102) 96 10/27/17 23:00 95 10/27/17 22:00 96 10/27/17 21:00 90 10/27/17 20:00 86 10/27/17 19:40 98.7 84 16 129/81 (97) 96 10/27/17 19:00 66 10/27/17 18:00 76 10/27/17 17:00 72 10/27/17 16:00 76 10/27/17 15:00 97.8 72 16 136/76 (96) 97 10/27/17 15:00 75 10/27/17 14:00 68 10/27/17 13:00 88 10/27/17 12:00 88 10/27/17 11:26 98.0 91 18 139/76 (97) 99 10/27/17 11:00 91 10/27/17 10:00 76 10/27/17 09:00 74 10/27/17 08:00 68 I/O 10/27/17 10/27/17 10/27/17 10/28/17 10/28/17 10/28/17 07:00 15:00 23:00 07:00 15:00 23:00 Intake Total 240 ml 245 ml 530.2 ml 354 ml Output Total 500 ml 700 ml 800 ml Balance -260 ml 245 ml -169.8 ml -446 ml Intake Oral 240 ml 500 ml 240 ml IV Total 245 ml 30.2 ml 114 ml Output Urine Total 500 ml 700 ml 800 ml # Bowel Movements 0 1 0 Result Diagram: 10/27/17 0650 10/27/17 0650 Imaging Last Impressions Chest X-Ray 10/28/17 0000 Signed Impressions: Service Date/Time: Saturday, October 28, 2017 12:03 - CONCLUSION: Multiple tubes and lines are in good positions. Left mid lung field atelectasis. Pelon Buckner MD Lower Extremity Ultrasound 10/26/17 0000 Signed Impressions: Service Date/Time: Thursday, October 26, 2017 12:51 - CONCLUSION: Normal study and measurements as above. Génesis Wilson MD Carotid Artery Ultrasound 10/26/17 0000 Signed Impressions: Service Date/Time: Thursday, October 26, 2017 12:26 - CONCLUSION: No evidence for hemodynamically significant stenosis. Génesis Wilson MD Objective Remarks GENERAL: This is a well-nourished, well-developed patient, in no apparent distress. CARDIOVASCULAR: Regular rate and regular rhythm without murmurs, gallops, or rubs. RESPIRATORY: Clear to auscultation. Breath sounds equal bilaterally. No wheezes , rales, or rhonchi. GASTROINTESTINAL: Abdomen soft, non-tender, nondistended. Normal, active bowel sounds MUSCULOSKELETAL: Extremities without clubbing, cyanosis, or edema. NEURO: Alert & Oriented x4 to person, place, time, situation. Moves all ext x4 Procedures cardiac cath Surgeon: Lasha Good CTS on 10/28/17 1. Urgent Off-pump Coronary Artery Bypass Grafting x 3 with Left Internal Mammary Artery (DE OLIVEIRA) to the Left Anterior Descending (LAD), reverse saphenous vein graft to the Posterior Descending Artery (RPDA) of the Right Coronary Artery, reverse saphenous vein graft to the Obtuse Marginal branch (OM1) of the Left Circumflex artery 2. Intraoperative Vein Mapping 3. Left Leg Endoscopic Vein [place] A/P Assessment and Plan Unstable angina CAD s/p cardiac cath with Severe left main and severe right coronary disease. continue heparin drip, lisinopril, metoprolol and statin CT surgery consulted for cardiac bypass, s/p CABG on Saturday09/27/[address] Pedro Good lipid panel reviewed an suboptimal start statin A1c at 8.6 with DM Check 2D ECHO Continue meds per CTS Add morphine 2 mg every 4 hours when necessary for breakthrough chest pain. Diabetes mellitus type 2, uncontrolled A1c of 8.6: resume long-acting insulin - accu-check with SSI continue to monitor and adjust the regimen as needed. 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 Constipation. Resolved. Takes MiraLAX at home, resume home medication. Laxative/stool softeners as needed. DVT prophylaxis - on heparin drip. Discussed with the patient, nurse, family at bedside DC plan : s/p CABG on Saturday09/27/17 Nikki An MD Oct 28, 2017 07:29
[2017-10-28] MEDS: INSULIN ASPART SUPPLEMENTAL SCALE SQ SCH (08:00)
[2017-10-28 08:04] LABS: HEMOGLOBIN 12.8 GM/DL (13.0-17.0); MEAN CELL VOLUME 90.9 FL (80.0-100.0); MEAN CORPUSCULAR HEMOGLOBIN 30.7 PG (27.0-34.0); MEAN CORPUSCULAR HGB CONC 33.7 % (32.0-36.0); MEAN PLATELET VOLUME 8.3 FL (7.0-11.0); PLATELET COUNT 186 TH/MM3 (150-450); RED BLOOD COUNT 4.18 MIL/MM3 (4.50-5.90); RED CELL DISTRIBUTION WIDTH 13.1 % (11.6-17.2); WHITE BLOOD COUNT 6.4 TH/MM3 (4.0-11.0)
[2017-10-28] MEDS: POLYETHYLENE GLYCOL 17 GM PKG PO SCH (09:00)
[2017-10-28] MEDS: SPIRONOLACTONE 50 MG TAB PO SCH (09:00)
[2017-10-28] MEDS: LISINOPRIL 20 MG TAB PO SCH (09:00)
[2017-10-28] MEDS: MUPIROCIN 2% OINT 1 APPLIC/GM SYR EACH NARE SCH ×2 (09:00→21:00)
[2017-10-28] MEDS ORDERED: LACTATED RINGER'S 1000 ML INJ 500 ML IV PRN (11:26)
[2017-10-28] MEDS ORDERED: DOBUTamine PREMIX DRIP 250 ML IV PRN (11:26)
[2017-10-28] MEDS ORDERED: ALBUMIN 5% INJ 250 ML IV PRN (11:30)
[2017-10-28] MEDS ORDERED: ACETAMINOPHEN/HYDROcodone 325 MG/5 MG TAB PO PRN (11:30)
[2017-10-28] MEDS ORDERED: RESP: RACEPINEPHRINE 2.25% 0.5 ML NEB NEB PRN (11:30)
[2017-10-28] MEDS ORDERED: SODIUM BICARBONATE 8.4% SOLN 50 MEQ/50 ML VIAL IV PUSH PRN ×2 (11:30)
[2017-10-28] MEDS ORDERED: MAGNESIUM SULFATE INJ 2 GM in SODIUM CHLORIDE 0.9% INJ 100 ML IV PRN ×4 (11:30)
[2017-10-28] MEDS ORDERED: MORPHINE SULFATE 2 MG/ML INJ IV PUSH PRN (11:30)
[2017-10-28] MEDS ORDERED: CALCIUM CHLORIDE INJ 1 GM in SODIUM CHLORIDE 0.9% INJ 100 ML IV PRN (11:30)
[2017-10-28] MEDS ORDERED: METOPROLOL TARTRATE 5 MG/5 ML VIAL IV PUSH PRN (11:30)
[2017-10-28] MEDS ORDERED: DEXMEDETOMIDINE INJ 200 MCG in SODIUM CHLORIDE 0.9% INJ 50 ML IV PRN (11:30)
[2017-10-28] MEDS ORDERED: POTASSIUM CHLORIDE 20 MEQ CONTROLLED RELEASE TAB PO PRN ×2 (11:30)
[2017-10-28] MEDS ORDERED: ACETAMINOPHEN 325 MG TAB PO PRN (11:30)
[2017-10-28] MEDS ORDERED: NITROGLYCERIN-D5W 50 MG/250 ML 250 ML IV PRN (11:30)
[2017-10-28] MEDS ORDERED: RESP: ALBUTEROL 2.5 MG/IPRATROPIUM 0.5 MG NEB (PRN) NEB (11:30)
[2017-10-28] MEDS ORDERED: SODIUM CHLORIDE 0.9% FLUSH 10 ML FLUSH IV FLUSH PRN (11:30)
[2017-10-28] MEDS ORDERED: POTASSIUM CHLOR 20 MEQ PREMIX 100 ML IV PRN ×3 (11:30)
[2017-10-28] MEDS ORDERED: DEXTROSE 50% IN WATER 50 ML VIAL(D50) IV PUSH PRN (11:30)
[2017-10-28] MEDS ORDERED: ACETAMINOPHEN 650 MG SUPP RECTAL PRN (11:30)
[2017-10-28] MEDS ORDERED: MEPERIDINE HCL 25 MG/ML VIAL IV PUSH PRN (11:30)
[2017-10-28] MEDS ORDERED: DOPamine INJ PREMIX 500 ML IV PRN (11:30)
[2017-10-28] MEDS ORDERED: hydrALAZINE HCL 20 MG/ML VIAL IV PUSH PRN (11:30)
[2017-10-28] MEDS ORDERED: PHENYLEPHRINE INJ 40 MG in DEXTROSE 5% IN WATE 500 ML INJ 496 ML IV PRN ×2 (11:30)
[2017-10-28] MEDS ORDERED: CALCIUM CHLORIDE 10% 1 GRAM/10 ML VIAL IV PUSH PRN (11:30)
--- NOTE | 2017-10-28 11:37 | PD.OP ---
cc: Lasha Good MD; Jose German MD Operative Report Date of Surgery: Oct 28, 2017 Preoperative Diagnosis: Postoperative Diagnosis: Procedure: 1. Urgent Off-pump Coronary Artery Bypass Grafting x 3 with Left Internal Mammary Artery ([place] OL[place]IRA) to the Left Anterior Descending (LAD), reverse saphenous vein graft to the Posterior Descending Artery (RPDA) of the Right Coronary Artery, reverse saphenous vein graft to the Obtuse Marginal branch (OM1) of the Left Circumflex artery 2. Intraoperative Vein Mapping 3. Left Leg Endoscopic Vein [place] Surgeon: Lasha Good Boom Tender(s): Caity Barnhart Operation and Findings: PREPROCEDURE DIAGNOSES 1. Multi-Vessel Coronary Artery Disease. 2. Unstable Angina 3. Mild Left Ventricular Dysfunction 4. Diabetes mellitus POSTPROCEDURE DIAGNOSES Same SURGICAL PROCEDURE 1. Urgent Off-pump Coronary Artery Bypass Grafting x 3 with Left Internal Mammary Artery (DE OLIVEIRA) to the Left Anterior Descending (LAD), reverse saphenous vein graft to the Posterior Descending Artery (RPDA) of the Right Coronary Artery, reverse saphenous vein graft to the Obtuse Marginal branch (OM1) of the Left Circumflex artery 2. Intraoperative Vein Mapping 3. Left Leg Endoscopic Vein [place] SURGEON Lasha Good MD LOADING UNIT OPERATOR JIMENA Douglas ANESTHESIA General endotracheal FORGING PRESS LEVER TENDER CHAYO Armenta MD PREPARATION ChloraPrep. COUNTS Needle, sponge, and instrument counts were correct. DRAINS Two 32-Syriac mediastinal tubes. COMPLICATIONS None. INDICATIONS FOR PROCEDURE The patient is a 82-year-old presenting with CP and multi-vessel CAD. He is being brought to the operating room for urgent surgical revascularization therapy. PROCEDURE Patient was brought to the operating room and placed supine on the OR table. Following the induction of adequate general endotracheal anesthesia and placement of appropriate monitoring devices, intraoperative vein mapping was performed which revealed suitable caliber conduit in both lower extremities. The patient was prepped and draped in standard sterile fashion. Next, 2500 units of intravenous heparin was given. The left greater saphenous vein was harvested endoscopically from the thigh. This appeared to be a good-caliber conduit. Simultaneously, a median sternotomy was performed and the left internal mammary artery dissected free off the posterior sternal table. The patient was systemically heparinized and anticoagulation monitored by serial ACT measurements. The internal mammary artery had good pulsatile flow in it and was a decent-caliber conduit. The pericardium was then divided in the midline, the cradle created and targets analyzed. At this point, all anastomoses were performed in a beating-heart fashion using the Maquet stabilizing system. The left internal mammary artery was then anastomosed to the distal LAD (2 mm) in an end-to-side fashion using 7-0 Prolene. The RSVG segment was then anastomosed to the RPDA (1.75 mm) in an end-to-side fashion using a running 7-0 Prolene. The final segment was anastomosed to the OM1 (1.75 mm) in an end-to-side fashion using a running 7-0 Prolene. The proximal anastomoses were then constructed to the ascending aorta in a running manner using 6-0 Prolene. All anastomotic sites were inspected and appeared to be hemostatic and patent. Protamine solution was given. Strict hemostasis was assured. The closure was undertaken. 2 chest tubes were placed. The pericardium was reapproximated in the midline. The sternum was approximated using sternal wires. The muscular and fascial layer were then closed in 3 layers. The endoscopic vein harvest site was closed in 2 layers. The patient tolerated the procedure well and was transferred to CVICU in critical but stable condition. Lasha Good MD Oct 28, 2017 11:37
[2017-10-28] MEDS ORDERED: Post-op Orders (for Pharmacy) OTHER ONE (11:55)
[2017-10-28] MEDS ORDERED: HEPARIN SODIUM - SQ 10,000 UNITS/ML VIAL SQ ONE (12:00)
[2017-10-28] MEDS ORDERED: PROTAMINE SULFATE 250 MG/25 ML VIAL IV ONE (12:00)
[2017-10-28] MEDS ORDERED: NS 500 ML (EXCEL BAG) INJ 500 ML IV ONE (12:00)
[2017-10-28] MEDS ORDERED: PHENYLEPH/NS 1000 MCG/10 ML SYR IV ONE (12:00)
[2017-10-28] MEDS ORDERED: SODIUM CHLOR 0.9% (EXCEL) INJ 250 ML IV ONE (12:00)
[2017-10-28] MEDS ORDERED: GLYCOPYRROLATE 0.2 MG/ML VIAL IV ONE (12:00)
[2017-10-28] MEDS ORDERED: DEXMEDETOMIDINE HCL 200 MCG/2 ML VIAL IV ONE (12:00)
[2017-10-28] MEDS ORDERED: NORMOSOL R INJ 2,000 ML IV ONE (12:00)
[2017-10-28] MEDS ORDERED: VECURONIUM BROMIDE 10 MG VIAL IV ONE (12:00)
[2017-10-28] MEDS ORDERED: SODIUM CHLORIDE 0.9% INJ 200 ML IV ONE (12:00)
[2017-10-28] MEDS ORDERED: LACTATED RINGER'S 1000 ML INJ 2,000 ML IV ONE (12:00)
[2017-10-28] MEDS ORDERED: NEOSTIGMINE METHYLSULFATE 10 MG/10 ML VIAL IV PUSH ONE (12:00)
[2017-10-28] MEDS: INSULIN REGULAR (IV INFUSION) 100 UNITS in SODIUM CHLORIDE 0.9% INJ 99 ML IV PRN (12:15)
--- NOTE | 2017-10-28 13:15 | RADRPT ---
EXAM DATE/TIME: 10/28/2017 12:03 [facility] COMPARISON: CHEST SINGLE AP, October 25, 2017, 11:30. INDICATIONS : Post-op coronary artery bypass graft surgery. MEDICAL HISTORY : None. SURGICAL HISTORY : None. ENCOUNTER: Initial ACUITY: 4 - 6 days PAIN SCORE: Non-responsive. LOCATION: chest FINDINGS: Endotracheal tube has its tip in good position 3 cm above the guy. Left subclavian central line victor s its tip in the superior vena cava. Nasogastric tube has its tip in the stomach. No pneumothorax is noted. Left-sided chest tube and mediastinal drain are in good positions. Median sternotomy wires are noted status post cardiac surgery. Left mid lung field atelectasis is noted. CONCLUSION: Multiple tubes and lines are in good positions. Left mid lung field atelectasis. Pelon Buckner MD on October 28, 2017 at 13:11 Board Certified Radiologist. This report was verified electronically.
[2017-10-28] MEDS: CLEVIDIPINE INJ 50 ML IV PRN (14:04)
[2017-10-28] MEDS: ACETAMINOPHEN 1000 MG/100 ML 100 ML IV SCH ×2 (14:06→20:11)
[2017-10-28] MEDS: RESP: ALBUTEROL 2.5 MG/IPRATROPIUM 0.5 MG NEB (SCH) NEB ×2 (14:54→21:09)
[2017-10-28] MEDS: ONDANSETRON HCL 4 MG/2 ML VIAL IV PUSH PRN ×2 (15:00→20:08)
[2017-10-28] MEDS ORDERED: POTASSIUM CHLOR 20 MEQ PREMIX 100 ML IV ONE (16:45)
[2017-10-28] MEDS: KETOROLAC TROMETHAMINE 30 MG/ML (IVP) VIAL IV PUSH PRN (17:36)
[2017-10-28] MEDS ORDERED: SODIUM CHLORIDE 0.9% FLUSH 10 ML FLUSH IV FLUSH SCH (21:00)
[2017-10-28] MEDS: INSULIN DETEMIR 100 UNITS/ML VIAL SQ SCH (21:00)
[2017-10-28] MEDS ORDERED: CALCIUM CARBONATE 500 MG CHEWABLE TAB PO PRN (21:30)
[2017-10-28] MEDS: ATORVASTATIN 40 MG TAB PO SCH (22:06)
[2017-10-28] MEDS: AMIODARONE 200 MG TAB PO SCH (22:07)
[2017-10-29] VITALS (21 sets, daily range): BP systolic 89–147; BP diastolic 51–70; PULSE 76–110; RESP 15–18; TEMP 98–98.4; O2SAT 93–100
[2017-10-29] MEDS: KETOROLAC TROMETHAMINE 30 MG/ML (IVP) VIAL IV PUSH PRN ×2 (00:30→20:40)
[2017-10-29] MEDS: INSULIN REGULAR (IV INFUSION) 100 UNITS in SODIUM CHLORIDE 0.9% INJ 99 ML IV PRN (02:01)
[2017-10-29] MEDS: CLEVIDIPINE INJ 50 ML IV PRN (02:02)
[2017-10-29] MEDS: ACETAMINOPHEN 1000 MG/100 ML 100 ML IV SCH ×2 (02:36→07:30)
[2017-10-29] MEDS: NITROGLYCERIN 2% OINT 1 GM PACKET TOPICAL SCH (03:00)
[2017-10-29] MEDS: RESP: ALBUTEROL 2.5 MG/IPRATROPIUM 0.5 MG NEB (SCH) NEB ×5 (03:45→22:00)
[2017-10-29 04:29] LABS: HEMATOCRIT 33.7 % (39.0-51.0); HEMOGLOBIN 11.5 GM/DL (13.0-17.0); MEAN CELL VOLUME 90.3 FL (80.0-100.0); MEAN CORPUSCULAR HEMOGLOBIN 30.7 PG (27.0-34.0); MEAN PLATELET VOLUME 7.4 FL (7.0-11.0); PLATELET COUNT 201 TH/MM3 (150-450); RED BLOOD COUNT 3.73 MIL/MM3 (4.50-5.90); RED CELL DISTRIBUTION WIDTH 13.4 % (11.6-17.2); WHITE BLOOD COUNT 10.8 TH/MM3 (4.0-11.0)
[2017-10-29 04:56] LABS: BICARBONATE 22.4 MEQ/L (21.0-32.0); CALCIUM 8.1 MG/DL (8.5-10.1); CREATININE 1.07 MG/DL (0.60-1.30); MAGNESIUM 1.7 MG/DL (1.5-2.5)
--- NOTE | 2017-10-29 05:27 | RADRPT ---
EXAM DATE/TIME: 10/29/2017 03:32 [facility] COMPARISON: CHEST SINGLE AP, October 28, 2017, 12:03. INDICATIONS : Short of breath. MEDICAL HISTORY : None. SURGICAL HISTORY : None. ENCOUNTER: Subsequent ACUITY: 1 week PAIN SCORE: 0/10 LOCATION: Bilateral chest FINDINGS: Portable AP view of the chest demonstrates a normal-sized cardiac silhouette is patient post median s ternotomy. Left subclavian central line, mediastinal drain, and left chest tube are present. Endotrac heal tube and nasogastric tube have been removed. No pneumothorax is identified. There is atelectasis at the left lung base. No pleural effusion is visualized. CONCLUSION: Mild atelectasis at the left lung base. Left chest tube is present and no pneumothorax is identified. Yomi Ley MD on October 29, 2017 at 5:25 Board Certified Radiologist. This report was verified electronically.
[2017-10-29] MEDS: PANTOPRAZOLE SOD 40 MG DELAYED RELEASE TAB PO SCH (06:22)
--- NOTE | 2017-10-29 07:26 | PD.CAR.PN ---
CVT Progress Note Subjective/Hospital Course: Mr. Naidu is a very pleasant 82-year-old gentleman with a known history of hypertension, diabetes mellitus and hyperlipidemia presents with an approximated jhf-dr-kinyl day history of progressive substernal chest pain described as a pressure sensation. 10/28 SURGICAL PROCEDURE 1. Urgent Off-pump Coronary Artery Bypass Grafting x 3 with Left Internal Mammary Artery (DE OLIVEIRA) to the Left Anterior Descending (LAD), reverse saphenous vein graft to the Posterior Descending Artery (RPDA) of the Right Coronary Artery, reverse saphenous vein graft to the Obtuse Marginal branch (OM1) of the Left Circumflex artery 2. Intraoperative Vein Mapping 3. Left Leg Endoscopic Vein [place] 10/29 Doing well Transfer CPCU Maintain CT Ambulate Beta addis Objective: Vital Signs Date Time Temp Pulse Resp B/P (MAP) Pulse Ox O2 Delivery O2 Flow Rate FiO2 10/29/17 05:00 85 133/55 10/29/17 04:00 90 124/57 10/29/17 03:00 76 10/29/17 03:00 98.4 76 16 111/63 (79) 98 125/51 (75) 10/29/17 03:00 76 125/51 10/29/17 02:05 18 10/29/17 02:05 18 10/29/17 02:02 88 140/56 10/29/17 00:30 90 150/59 10/28/17 23:00 97.9 87 16 121/71 (88) 98 127/54 (78) 10/28/17 23:00 90 10/28/17 22:00 88 127/52 10/28/17 21:10 97 Nasal Cannula 4.00 10/28/17 20:47 18 10/28/17 20:30 100 153/61 10/28/17 20:00 98.0 10/28/17 20:00 97 154/67 10/28/17 19:30 94 160/69 10/28/17 19:15 98 Nasal Cannula 4.00 10/28/17 19:15 97.8 88 16 120/70 (87) 98 110/45 (66) 10/28/17 19:15 89 10/28/17 19:00 88 110/45 10/28/17 18:48 87 90/46 10/28/17 17:00 99 Nasal Cannula 4.00 10/28/17 15:39 94.4 10/28/17 15:00 94.4 71 14 137/87 (104) 99 137/55 (82) 10/28/17 15:00 94.4 71 14 137/87 (104) 99 137/55 (82) 10/28/17 15:00 71 137/55 10/28/17 15:00 60 10/28/17 14:06 73 101/66 10/28/17 14:04 84 161/67 10/28/17 13:45 73 128/53 10/28/17 13:30 70 167/67 10/28/17 13:15 64 157/62 10/28/17 13:00 98 Nasal Cannula 4 10/28/17 13:00 98 Simple Mask 8.00 10/28/17 13:00 84 161/67 10/28/17 12:09 97.5 10/28/17 12:00 50 10/28/17 12:00 97.5 60 11 108/60 (76) 98 113/41 (65) 10/28/17 12:00 98 50 10/28/17 11:55 60 10/28/17 11:55 97.5 60 11 108/60 (76) 98 113/41 (65) Labs: Laboratory Tests Test 10/29/17 04:10 White Blood Count 10.8 TH/MM3 (4.0-11.0) Red Blood Count 3.73 MIL/MM3 (4.50-5.90) Hemoglobin 11.5 GM/DL (13.0-17.0) Hematocrit 33.7 % (39.0-51.0) Mean Corpuscular Volume 90.3 FL (80.0-100.0) Mean Corpuscular Hemoglobin 30.7 PG (27.0-34.0) Mean Corpuscular Hemoglobin Concent 34.0 % (32.0-36.0) Red Cell Distribution Width 13.4 % (11.6-17.2) Platelet Count 201 TH/MM3 (150-450) Mean Platelet Volume 7.4 FL (7.0-11.0) Blood Urea Nitrogen 24 MG/DL (7-18) Creatinine 1.07 MG/DL (0.60-1.30) Random Glucose 135 MG/DL (74-106) Calcium Level 8.1 MG/DL (8.5-10.1) Magnesium Level 1.7 MG/DL (1.5-2.5) Sodium Level 138 MEQ/L (136-145) Potassium Level 4.3 MEQ/L (3.5-5.1) Chloride Level 106 MEQ/L (98-107) Carbon Dioxide Level 22.4 MEQ/L (21.0-32.0) Anion Gap 10 MEQ/L (5-15) Estimat Glomerular Filtration Rate 66 ML/MIN (>89) Result Diagram: 10/29/1740910/29/17409 (1) CAD (coronary artery disease) Plan: Stable overnight. Severe left main and severe RCA disease by cath with normal EF. Await CABG tomorrow. Continue beta addis, aspirin, heparin drip. (2) Hyperlipidemia Plan: Good lipid profile. Continue statin therapy. (3) Hypertension Plan: Stable. Normotensive. Problem Qualifiers (1) CAD (coronary artery disease): Qualified Codes: I25.110 - Atherosclerotic heart disease of [place] coronary artery with unstable angina pectoris (2) Hyperlipidemia: Qualified Codes: E78.2 - Mixed hyperlipidemia (3) Hypertension: Qualified Codes: I10 - Essential (primary) hypertension Lasha Good MD Oct 29, 2017 07:26
[2017-10-29] MEDS: ONDANSETRON HCL 4 MG/2 ML VIAL IV PUSH PRN (07:31)
[2017-10-29] MEDS ORDERED: GLUCAGON 1 MG/ML VIAL OTHER PRN (07:45)
[2017-10-29] MEDS ORDERED: DEXTROSE 50% IN WATER 50 ML VIAL(D50) IV PUSH PRN (07:45)
[2017-10-29] MEDS ORDERED: BISACODYL 10 MG SUPP RECTAL PRN (07:45)
[2017-10-29] MEDS ORDERED: SOD PHOSPHATE/SOD BIPHOSPHATE (ADULT) ENEMA 133ML RECTAL PRN (07:45)
[2017-10-29] MEDS: MULTIVITAMINS/MINERALS THERAPEUTIC TAB PO SCH (09:00)
--- NOTE | 2017-10-29 09:58 | RSPPFT ---
DATE OF PROCEDURE: 10/25/17 COMMENTS: VOLUMES DYNAMIC: FVC and FEV1 normal. FLOWS: FEV1% moderately reduced; FEF 25-75 severely reduced. IMPRESSION: Although the lung volumes are preserved, patient does have moderate airways obstruction.
[2017-10-29] MEDS: INSULIN ASPART SUPPLEMENTAL SCALE SQ SCH ×4 (10:19→22:45)
[2017-10-29] MEDS: METOPROLOL TARTRATE 50 MG TAB PO SCH ×2 (10:20→20:40)
[2017-10-29] MEDS: CLOPIDOGREL 75 MG TAB PO SCH (10:31)
[2017-10-29] MEDS: MAGNESIUM HYDROXIDE SUSP 30 ML CUP PO SCH (10:31)
[2017-10-29] MEDS: ASPIRIN 81 MG CHEW TAB PO SCH (10:31)
[2017-10-29] MEDS: AMIODARONE 200 MG TAB PO SCH ×2 (10:31→20:41)
[2017-10-29] MEDS: MUPIROCIN 2% OINT 1 APPLIC/GM SYR EACH NARE SCH ×2 (10:31→20:41)
[2017-10-29] MEDS: POLYETHYLENE GLYCOL 17 GM PKG PO SCH (11:04)
--- NOTE | 2017-10-29 11:41 | HHI.PR ---
Subjective Remarks Still with nausea, less epigastric pain. No vomiting. Denies any cp, sob, lightheadedness, diaphoresis. Objective Vitals Vital Signs Date Time Temp Pulse Resp B/P (MAP) Pulse Ox O2 Delivery O2 Flow Rate FiO2 10/29/17 10:00 98.4 90 16 117/70 (86) 98 147/67 (93) 10/29/17 08:45 97 Nasal Cannula 2.50 10/29/17 07:00 90 10/29/17 07:00 98 Nasal Cannula 2.00 10/29/17 07:00 98.4 90 16 117/70 (86) 98 147/67 (93) 10/29/17 05:00 85 133/55 10/29/17 04:00 90 124/57 10/29/17 03:00 76 10/29/17 03:00 98.4 76 16 111/63 (79) 98 125/51 (75) 10/29/17 03:00 76 125/51 10/29/17 02:05 18 10/29/17 02:05 18 10/29/17 02:02 88 140/56 10/29/17 00:30 90 150/59 10/28/17 23:00 97.9 87 16 121/71 (88) 98 127/54 (78) 10/28/17 23:00 90 10/28/17 22:00 88 127/52 10/28/17 21:10 97 Nasal Cannula 4.00 10/28/17 20:47 18 10/28/17 20:30 100 153/61 10/28/17 20:00 98.0 10/28/17 20:00 97 154/67 10/28/17 19:30 94 160/69 10/28/17 19:15 98 Nasal Cannula 4.00 10/28/17 19:15 97.8 88 16 120/70 (87) 98 110/45 (66) 10/28/17 19:15 89 10/28/17 19:00 88 110/45 10/28/17 18:48 87 90/46 10/28/17 17:00 99 Nasal Cannula 4.00 10/28/17 15:39 94.4 10/28/17 15:00 94.4 71 14 137/87 (104) 99 137/55 (82) 10/28/17 15:00 94.4 71 14 137/87 (104) 99 137/55 (82) 10/28/17 15:00 71 137/55 10/28/17 15:00 60 10/28/17 14:06 73 101/66 10/28/17 14:04 84 161/67 10/28/17 13:45 73 128/53 10/28/17 13:30 70 167/67 10/28/17 13:15 64 157/62 10/28/17 13:00 98 Nasal Cannula 4 10/28/17 13:00 98 Simple Mask 8.00 10/28/17 13:00 84 161/67 10/28/17 12:09 97.5 10/28/17 12:00 50 10/28/17 12:00 97.5 60 11 108/60 (76) 98 113/41 (65) 10/28/17 12:00 98 50 10/28/17 11:55 60 10/28/17 11:55 97.5 60 11 108/60 (76) 98 113/41 (65) I/O 10/28/17 10/28/17 10/28/17 10/29/17 10/29/17 10/29/17 07:00 15:00 23:00 07:00 15:00 23:00 Intake Total 354 ml 2750 ml 2150 ml 505 ml 312 ml Output Total 800 ml 1100 ml 1075 ml 540 ml Balance -446 ml 1650 ml 1075 ml -35 ml 312 ml Intake Oral 240 ml 120 ml IV Total 114 ml 600 ml 385 ml 312 ml Autotransfusion 250 ml Other 2500 ml 1550 ml Output Urine Total 800 ml 600 ml 675 ml 350 ml Gastric Drainage Total 50 ml Chest Tube Drainage Total 350 ml 190 ml Estimated Blood Loss 500 ml # Bowel Movements 0 0 Result Diagram: 10/29/17 0410 10/29/17 0410 Imaging Last Impressions Chest X-Ray 10/29/17 0500 Signed Impressions: Service Date/Time: Sunday, October 29, 2017 03:32 - CONCLUSION: Mild atelectasis at the left lung base. Left chest tube is present and no pneumothorax is identified. Yomi Ley MD Lower Extremity Ultrasound 10/26/17 0000 Signed Impressions: Service Date/Time: Thursday, October 26, 2017 12:51 - CONCLUSION: Normal study and measurements as above. Génesis Wilson MD Carotid Artery Ultrasound 10/26/17 0000 Signed Impressions: Service Date/Time: Thursday, October 26, 2017 12:26 - CONCLUSION: No evidence for hemodynamically significant stenosis. Génesis Wilson MD Objective Remarks GENERAL: This is a well-nourished, well-developed patient, in no apparent distress. CARDIOVASCULAR: Regular rate and regular rhythm without murmurs, gallops, or rubs. RESPIRATORY: Clear to auscultation. Breath sounds equal bilaterally. No wheezes , rales, or rhonchi. GASTROINTESTINAL: Abdomen soft, non-tender, nondistended. Normal, active bowel sounds MUSCULOSKELETAL: Extremities without clubbing, cyanosis, or edema. NEURO: Alert & Oriented x4 to person, place, time, situation. Moves all ext x4 Procedures cardiac cath Surgeon: Lasha Good CTS on 10/28/17 1. Urgent Off-pump Coronary Artery Bypass Grafting x 3 with Left Internal Mammary Artery (DE OLIVEIRA) to the Left Anterior Descending (LAD), reverse saphenous vein graft to the Posterior Descending Artery (RPDA) of the Right Coronary Artery, reverse saphenous vein graft to the Obtuse Marginal branch (OM1) of the Left Circumflex artery 2. Intraoperative Vein Mapping 3. Left Leg Endoscopic Vein [place] A/P Assessment and Plan Unstable angina CAD s/p cardiac cath with Severe left main and severe right coronary disease. continue heparin drip, lisinopril, metoprolol and statin CT surgery consulted for cardiac bypass, s/p CABG on Saturday09/27/[address] Pedro Good lipid panel reviewed an suboptimal start statin A1c at 8.6 with DM Check 2D ECHO Continue meds per CTS Add morphine 2 mg every 4 hours when necessary for breakthrough chest pain. Diabetes mellitus type 2, uncontrolled A1c of 8.6: resume long-acting insulin - accu-check with SSI continue to monitor and adjust the regimen as needed. 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 add antiemetics. Monitor lytes Hypertension: continue metoprolol and lisinopril- monitor and adjust meds as need. Constipation. Resolved. Takes MiraLAX at home, resume home medication. Laxative/stool softeners as needed. DVT prophylaxis - on heparin drip. Discussed with the patient, nurse DC plan : s/p CABG on Saturday09/27/[address] with normal amount drain after CABG Discharge Planning DC when improved and cleared by CTS Nikki An MD Oct 29, 2017 11:41 am
[2017-10-29] MEDS ORDERED: PROMETHAZINE HCL 25 MG TAB PO PRN (11:45)
[2017-10-29] MEDS: METOCLOPRAMIDE HCL 10 MG/2 ML VIAL IV PUSH SCH ×2 (11:56→17:37)
[2017-10-29] MEDS ORDERED: TAMSULOSIN HCL 0.4 MG CAP PO ONE (14:45)
--- NOTE | 2017-10-29 15:50 | EKG ---
Date Performed: 10/29/2017 Time Performed: 05:17:44 PTAGE: 82 years EKG: Sinus rhythm Possible inferior infarct - age undetermined Lateral T wave changes may be due to myocardial ischemi a Abnormal ECG Since the prior tracing, there has been no significant change PREVIOUS TRACING : 10/25/2017 11.25 DOCTOR: Erik Bernal Interpretating Date/Time 10/29/2017 15:49:31
[2017-10-29] MEDS: SENNOSIDES 8.6 MG TAB PO SCH (20:40)
[2017-10-29] MEDS: INSULIN DETEMIR 100 UNITS/ML VIAL SQ SCH (20:41)
[2017-10-29] MEDS: ATORVASTATIN 40 MG TAB PO SCH (20:41)
[2017-10-29] MEDS: DOCUSATE SODIUM 100 MG CAP PO SCH (20:41)
[2017-10-30] VITALS (28 sets, daily range): BP systolic 114–126; BP diastolic 58–80; PULSE 78–109; RESP 16–19; TEMP 98–98.4; O2SAT 94–98
[2017-10-30] MEDS: INSULIN ASPART SUPPLEMENTAL SCALE SQ SCH ×6 (03:16→21:17)
[2017-10-30 03:44] LABS: BASOPHIL % 0.3 % (0.0-2.0); EOSINOPHIL % 0.2 % (0.0-4.0); HEMATOCRIT 28.7 % (39.0-51.0); HEMOGLOBIN 9.9 GM/DL (13.0-17.0); LYMPH % 8.2 % (9.0-44.0); LYMPHOCYTE # 0.8 TH/MM3 (1.0-4.8); MEAN CELL VOLUME 91.2 FL (80.0-100.0); MEAN CORPUSCULAR HEMOGLOBIN 31.4 PG (27.0-34.0); MEAN CORPUSCULAR HGB CONC 34.4 % (32.0-36.0); MEAN PLATELET VOLUME 7.6 FL (7.0-11.0); MONO % 11.6 % (0.0-8.0); MONOCYTE # 1.2 TH/MM3 (0-0.9); NEUT % 79.7 % (16.0-70.0); PLATELET COUNT 174 TH/MM3 (150-450); RED BLOOD COUNT 3.15 MIL/MM3 (4.50-5.90); RED CELL DISTRIBUTION WIDTH 13.6 % (11.6-17.2)
[2017-10-30 04:16] LABS: BICARBONATE 24.8 MEQ/L (21.0-32.0); CALCIUM 8.4 MG/DL (8.5-10.1); CREATININE 1.49 MG/DL (0.60-1.30); MAGNESIUM 2.3 MG/DL (1.5-2.5)
[2017-10-30] MEDS: METOCLOPRAMIDE HCL 10 MG/2 ML VIAL IV PUSH SCH ×4 (05:56→17:31)
[2017-10-30] MEDS: PANTOPRAZOLE SOD 40 MG DELAYED RELEASE TAB PO SCH (05:56)
[2017-10-30] MEDS: MUPIROCIN 2% OINT 1 APPLIC/GM SYR EACH NARE SCH ×2 (07:42→21:00)
[2017-10-30] MEDS: CLOPIDOGREL 75 MG TAB PO SCH (07:59)
[2017-10-30] MEDS: ASPIRIN 81 MG CHEW TAB PO SCH (07:59)
[2017-10-30] MEDS: MAGNESIUM HYDROXIDE SUSP 30 ML CUP PO SCH (07:59)
[2017-10-30] MEDS: POLYETHYLENE GLYCOL 17 GM PKG PO SCH ×2 (07:59→08:00)
[2017-10-30] MEDS: METOPROLOL TARTRATE 50 MG TAB PO SCH ×2 (08:00→21:16)
[2017-10-30] MEDS: DOCUSATE SODIUM 100 MG CAP PO SCH ×2 (08:00→21:16)
[2017-10-30] MEDS: AMIODARONE 200 MG TAB PO SCH ×2 (08:00→21:17)
[2017-10-30] MEDS: MULTIVITAMINS/MINERALS THERAPEUTIC TAB PO SCH (08:00)
[2017-10-30] MEDS: RESP: ALBUTEROL 2.5 MG/IPRATROPIUM 0.5 MG NEB (SCH) NEB ×3 (08:13→21:34)
[2017-10-30] MEDS: TAMSULOSIN HCL 0.4 MG CAP PO SCH (09:00)
--- NOTE | 2017-10-30 09:54 | PD.CAR.PN ---
CVT Progress Note Subjective/Hospital Course: Mr. Naidu is a very pleasant 82-year-old gentleman with a known history of hypertension, diabetes mellitus and hyperlipidemia presents with an approximated hnu-fo-ldmhf day history of progressive substernal chest pain described as a pressure sensation. 10/28 SURGICAL PROCEDURE 1. Urgent Off-pump Coronary Artery Bypass Grafting x 3 with Left Internal Mammary Artery (DE OLIVEIRA) to the Left Anterior Descending (LAD), reverse saphenous vein graft to the Posterior Descending Artery (RPDA) of the Right Coronary Artery, reverse saphenous vein graft to the Obtuse Marginal branch (OM1) of the Left Circumflex artery 2. Intraoperative Vein Mapping 3. Left Leg Endoscopic Vein [place] 10/29 Doing well Transfer CPCU Maintain CT Ambulate Beta addis 10/30 D/C CT Rehab evaluation Ambulate Objective: Vital Signs Date Time Temp Pulse Resp B/P (MAP) Pulse Ox O2 Delivery O2 Flow Rate FiO2 10/30/17 08:20 95 10/30/17 08:00 100 10/30/17 08:00 98.0 100 18 126/80 (95) 96 10/30/17 07:35 96 Room Air 10/30/17 07:00 98 10/30/17 06:00 100 10/30/17 05:00 98 10/30/17 04:00 92 10/30/17 03:47 98.2 96 16 120/59 (79) 94 10/30/17 03:00 93 10/30/17 02:00 90 10/30/17 01:00 90 10/30/17 00:00 98 10/29/17 23:47 98.0 106 15 89/53 (65) 96 10/29/17 23:00 107 10/29/17 22:00 110 10/29/17 21:00 110 10/29/17 20:40 93 Nasal Cannula 10/29/17 20:00 106 10/29/17 19:41 96 Room Air 10/29/17 19:41 98.1 107 15 95/54 (68) 96 10/29/17 19:00 109 10/29/17 17:00 91 10/29/17 16:00 90 10/29/17 15:33 98.4 93 18 118/64 (82) 100 10/29/17 15:00 93 10/29/17 14:00 90 10/29/17 13:00 91 10/29/17 12:00 90 10/29/17 11:45 98.2 93 18 129/68 (88) 100 Arterial Line 10/29/17 11:15 98 Room Air 10/29/17 11:00 100 Nasal Cannula 2.00 10/29/17 11:00 93 10/29/17 10:00 98.4 90 16 117/70 (86) 98 147/67 (93) Labs: Laboratory Tests Test 10/30/17 03:19 White Blood Count 10.0 TH/MM3 (4.0-11.0) Red Blood Count 3.15 MIL/MM3 (4.50-5.90) Hemoglobin 9.9 GM/DL (13.0-17.0) Hematocrit 28.7 % (39.0-51.0) Mean Corpuscular Volume 91.2 FL (80.0-100.0) Mean Corpuscular Hemoglobin 31.4 PG (27.0-34.0) Mean Corpuscular Hemoglobin Concent 34.4 % (32.0-36.0) Red Cell Distribution Width 13.6 % (11.6-17.2) Platelet Count 174 TH/MM3 (150-450) Mean Platelet Volume 7.6 FL (7.0-11.0) Neutrophils (%) (Auto) 79.7 % (16.0-70.0) Lymphocytes (%) (Auto) 8.2 % (9.0-44.0) Monocytes (%) (Auto) 11.6 % (0.0-8.0) Eosinophils (%) (Auto) 0.2 % (0.0-4.0) Basophils (%) (Auto) 0.3 % (0.0-2.0) Neutrophils # (Auto) 8.0 TH/MM3 (1.8-7.7) Lymphocytes # (Auto) 0.8 TH/MM3 (1.0-4.8) Monocytes # (Auto) 1.2 TH/MM3 (0-0.9) Eosinophils # (Auto) 0.0 TH/MM3 (0-0.4) Basophils # (Auto) 0.0 TH/MM3 (0-0.2) CBC Comment DIFF FINAL Differential Comment Blood Urea Nitrogen 31 MG/DL (7-18) Creatinine 1.49 MG/DL (0.60-1.30) Random Glucose 139 MG/DL (74-106) Calcium Level 8.4 MG/DL (8.5-10.1) Magnesium Level 2.3 MG/DL (1.5-2.5) Sodium Level 137 MEQ/L (136-145) Potassium Level 4.5 MEQ/L (3.5-5.1) Chloride Level 104 MEQ/L (98-107) Carbon Dioxide Level 24.8 MEQ/L (21.0-32.0) Anion Gap 8 MEQ/L (5-15) Estimat Glomerular Filtration Rate 45 ML/MIN (>89) Result Diagram: 10/30/1731810/30/17318 (1) CAD (coronary artery disease) Plan: Stable overnight. Severe left main and severe RCA disease by cath with normal EF. Await CABG tomorrow. Continue beta addis, aspirin, heparin drip. (2) Hyperlipidemia Plan: Good lipid profile. Continue statin therapy. (3) Hypertension Plan: Stable. Normotensive. Problem Qualifiers (1) CAD (coronary artery disease): Qualified Codes: I25.110 - Atherosclerotic heart disease of [place] coronary artery with unstable angina pectoris (2) Hyperlipidemia: Qualified Codes: E78.2 - Mixed hyperlipidemia (3) Hypertension: Qualified Codes: I10 - Essential (primary) hypertension Lasha Good MD Oct 30, 2017 09:54
[2017-10-30] MEDS ORDERED: PLAV75TA29 PO (10:08)
[2017-10-30] MEDS ORDERED: AMIO200T PO (10:08)
[2017-10-30] MEDS ORDERED: HYDR-3516 PO (10:08)
[2017-10-30] MEDS ORDERED: TAMS5CAP PO (10:08)
--- NOTE | 2017-10-30 18:53 | HHI.PR ---
Subjective Remarks Postop day #2 from CABG. Chest tubes have been removed at this point. No new complaints from the patient. He reports that he is ambulating with PT. Objective Vital Signs Date Time Temp Pulse Resp B/P (MAP) Pulse Ox O2 Delivery O2 Flow Rate FiO2 10/30/17 18:00 105 10/30/17 17:30 109 10/30/17 17:00 88 10/30/17 16:00 98.4 105 16 118/62 (80) 94 10/30/17 16:00 98 10/30/17 15:00 109 10/30/17 14:00 88 10/30/17 13:00 82 10/30/17 12:00 78 10/30/17 12:00 98.2 96 16 120/65 (83) 94 10/30/17 11:00 80 10/30/17 10:00 92 10/30/17 09:00 98 10/30/17 08:20 95 10/30/17 08:00 100 10/30/17 08:00 98.0 100 18 126/80 (95) 96 10/30/17 07:35 96 Room Air 10/30/17 07:00 98 10/30/17 06:00 100 10/30/17 05:00 98 10/30/17 04:00 92 10/30/17 03:47 98.2 96 16 120/59 (79) 94 10/30/17 03:00 93 10/30/17 02:00 90 10/30/17 01:00 90 10/30/17 00:00 98 10/29/17 23:47 98.0 106 15 89/53 (65) 96 10/29/17 23:00 107 10/29/17 22:00 110 10/29/17 21:00 110 10/29/17 20:40 93 Nasal Cannula 10/29/17 20:00 106 10/29/17 19:41 96 Room Air 10/29/17 19:41 98.1 107 15 95/54 (68) 96 10/29/17 19:00 109 I/O 10/29/17 10/29/17 10/29/17 10/30/17 10/30/17 10/30/17 07:00 15:00 23:00 07:00 15:00 23:00 Intake Total 505 ml 312 ml 925 ml 300 ml 970 ml Output Total 540 ml 400 ml 370 ml 450 ml Balance -35 ml 312 ml 525 ml -70 ml 520 ml Intake Oral 120 ml 925 ml 300 ml 970 ml IV Total 385 ml 312 ml Output Urine Total 350 ml 250 ml 300 ml 450 ml Chest Tube Drainage Total 190 ml 150 ml 70 ml Bladder Scan Volume Amount 161 ml # Bowel Movements 0 0 0 0 Result Diagram: 10/30/1731810/30/17318 Objective Remarks GENERAL: NAD, A&Ox3 HEAD: Normocephalic. NECK: Supple, trachea midline. No lymphadenopathy. EYES: No scleral icterus. No injection or drainage. CARDIOVASCULAR: Regular rate and rhythm without murmurs, gallops, or rubs. RESPIRATORY: Breath sounds equal bilaterally. No accessory muscle use. GASTROINTESTINAL: Abdomen soft, non-tender, nondistended. MUSCULOSKELETAL: No cyanosis, or edema. Anterior chest wound. SKIN: Warm and dry. NEURO: No focal neurological deficitis. A/P Problem List: (1) Hypertension ICD Code: I10 - Essential (primary) hypertension Status: Chronic (2) Hyperlipidemia ICD Code: E78.5 - Hyperlipidemia, unspecified Status: Chronic (3) CAD (coronary artery disease) ICD Code: I25.10 - Atherosclerotic heart disease of [place] coronary artery without angina pectoris Status: Chronic (4) Chest pain ICD Code: R07.9 - Chest pain, unspecified Status: Acute Assessment and Plan 82-year-old male admitted secondary to unstable angina, now status post CABG on 09/27/17 Unstable angina CAD Status post CABG Continue pain treatments as needed Continue postop care Continue lisinopril Continue metoprolol Continue statin Cardiothoracic surgeon following Diabetes mellitus type 2 Follow blood sugars Insulin sliding scale Diabetic diet Nausea and vomiting Resolved Follow electrolytes Hypertension Continue metoprolol Continue lisinopril Constipation. Resolved. Stool softener MiraLAX as needed DVT prophylaxis SCDs Problem Qualifiers (1) Hypertension: Qualified Codes: I10 - Essential (primary) hypertension (2) Hyperlipidemia: Qualified Codes: E78.2 - Mixed hyperlipidemia (3) CAD (coronary artery disease): Qualified Codes: I25.110 - Atherosclerotic heart disease of [place] coronary artery with unstable angina pectoris (4) Chest pain: Qualified Codes: R07.9 - Chest pain, unspecified Garret Martino MD Oct 30, 2017 18:53
[2017-10-30] MEDS: INSULIN DETEMIR 100 UNITS/ML VIAL SQ SCH (21:00)
[2017-10-30] MEDS: ATORVASTATIN 40 MG TAB PO SCH (21:16)
[2017-10-30] MEDS: SENNOSIDES 8.6 MG TAB PO SCH (21:16)
[2017-10-31] VITALS (28 sets, daily range): BP systolic 118–148; BP diastolic 60–72; PULSE 83–108; RESP 17–20; TEMP 98–98.5; O2SAT 90–97
[2017-10-31] MEDS: INSULIN ASPART SUPPLEMENTAL SCALE SQ SCH ×6 (02:10→21:27)
[2017-10-31] MEDS: METOCLOPRAMIDE HCL 10 MG/2 ML VIAL IV PUSH SCH ×5 (05:33→22:47)
[2017-10-31] MEDS: PANTOPRAZOLE SOD 40 MG DELAYED RELEASE TAB PO SCH (05:34)
[2017-10-31 05:58] LABS: AUTOMATED NEUTROPHIL # 7.1 TH/MM3 (1.8-7.7); BASOPHIL % 0.4 % (0.0-2.0); EOSINOPHIL # 0.2 TH/MM3 (0-0.4); EOSINOPHIL % 1.9 % (0.0-4.0); HEMATOCRIT 30.4 % (39.0-51.0); HEMOGLOBIN 10.2 GM/DL (13.0-17.0); LYMPHOCYTE # 1.3 TH/MM3 (1.0-4.8); MEAN CELL VOLUME 91.3 FL (80.0-100.0); MEAN CORPUSCULAR HEMOGLOBIN 30.7 PG (27.0-34.0); MEAN CORPUSCULAR HGB CONC 33.6 % (32.0-36.0); MEAN PLATELET VOLUME 7.4 FL (7.0-11.0); MONO % 11.6 % (0.0-8.0); MONOCYTE # 1.1 TH/MM3 (0-0.9); NEUT % 73.1 % (16.0-70.0); PLATELET COUNT 184 TH/MM3 (150-450); RED BLOOD COUNT 3.33 MIL/MM3 (4.50-5.90); RED CELL DISTRIBUTION WIDTH 13.7 % (11.6-17.2); WHITE BLOOD COUNT 9.7 TH/MM3 (4.0-11.0)
[2017-10-31 06:13] LABS: ALBUMIN 2.6 GM/DL (3.4-5.0); ALT (GPT) 18 U/L (12-78); AST (GOT) 28 U/L (15-37); BICARBONATE 26.5 MEQ/L (21.0-32.0); BLOOD UREA NITROGEN 28 MG/DL (7-18); CALCIUM 8.3 MG/DL (8.5-10.1); CHLORIDE 106 MEQ/L (98-107); CREATININE 1.32 MG/DL (0.60-1.30); GLOMERULAR FILTRATION RATE 52 ML/MIN (>89); GLUCOSE,RANDOM 138 MG/DL (74-106); SODIUM (NA) 139 MEQ/L (136-145)
[2017-10-31 06:15] LABS: ALKALINE PHOSPHATASE 74 U/L (45-117); TOTAL BILIRUBIN ADULT 0.7 MG/DL (0.2-1.0); TOTAL PROTEIN 6.1 GM/DL (6.4-8.2)
[2017-10-31] MEDS: POLYETHYLENE GLYCOL 17 GM PKG PO SCH ×2 (08:26)
[2017-10-31] MEDS: ASPIRIN 81 MG CHEW TAB PO SCH (08:26)
[2017-10-31] MEDS: METOPROLOL TARTRATE 50 MG TAB PO SCH ×2 (08:26→20:01)
[2017-10-31] MEDS: MULTIVITAMINS/MINERALS THERAPEUTIC TAB PO SCH (08:26)
[2017-10-31] MEDS: MAGNESIUM HYDROXIDE SUSP 30 ML CUP PO SCH (08:26)
[2017-10-31] MEDS: MUPIROCIN 2% OINT 1 APPLIC/GM SYR EACH NARE SCH (08:27)
[2017-10-31] MEDS: DOCUSATE SODIUM 100 MG CAP PO SCH ×2 (08:27→20:00)
[2017-10-31] MEDS: AMIODARONE 200 MG TAB PO SCH ×2 (08:27→20:01)
[2017-10-31] MEDS: CLOPIDOGREL 75 MG TAB PO SCH (08:27)
[2017-10-31] MEDS: TAMSULOSIN HCL 0.4 MG CAP PO SCH (08:27)
--- NOTE | 2017-10-31 08:57 | PD.CAR.PN ---
CVT Progress Note Subjective/Hospital Course: Mr. Naidu is a very pleasant 82-year-old gentleman with a known history of hypertension, diabetes mellitus and hyperlipidemia presents with an approximated vaz-sv-lzwpp day history of progressive substernal chest pain described as a pressure sensation. 10/28 SURGICAL PROCEDURE 1. Urgent Off-pump Coronary Artery Bypass Grafting x 3 with Left Internal Mammary Artery (DE OLIVEIRA) to the Left Anterior Descending (LAD), reverse saphenous vein graft to the Posterior Descending Artery (RPDA) of the Right Coronary Artery, reverse saphenous vein graft to the Obtuse Marginal branch (OM1) of the Left Circumflex artery 2. Intraoperative Vein Mapping 3. Left Leg Endoscopic Vein [place] 10/29 Doing well Transfer CPCU Maintain CT Ambulate Beta addis 10/30 D/C CT Rehab evaluation Ambulate 10/31 Doing well Tachycardic when ambulates Likely D/C SNF tomorrow Objective: Vital Signs Date Time Temp Pulse Resp B/P (MAP) Pulse Ox O2 Delivery O2 Flow Rate FiO2 10/31/17 08:00 98.2 94 20 148/70 (96) 94 10/31/17 08:00 102 10/31/17 07:31 90 10/31/17 07:24 96 Room Air 10/31/17 07:00 104 10/31/17 06:14 102 10/31/17 05:45 100 10/31/17 04:04 89 10/31/17 03:11 89 10/31/17 03:11 98.0 94 20 134/70 (91) 94 10/31/17 02:29 90 10/31/17 01:47 96 10/31/17 00:15 90 10/30/17 23:10 98.3 86 18 114/58 (76) 98 10/30/17 23:10 90 10/30/17 22:06 108 10/30/17 21:42 109 10/30/17 20:30 106 10/30/17 19:55 96 21 10/30/17 19:30 98.2 101 19 118/61 (80) 96 10/30/17 19:30 101 10/30/17 19:30 96 Room Air 10/30/17 18:00 105 10/30/17 17:30 109 10/30/17 17:00 88 10/30/17 16:00 98.4 105 16 118/62 (80) 94 10/30/17 16:00 98 10/30/17 15:00 109 10/30/17 14:00 88 10/30/17 13:00 82 10/30/17 12:00 78 10/30/17 12:00 98.2 96 16 120/65 (83) 94 10/30/17 11:00 80 10/30/17 10:00 92 10/30/17 09:00 98 Labs: Laboratory Tests Test 10/31/17 05:30 White Blood Count 9.7 TH/MM3 (4.0-11.0) Red Blood Count 3.33 MIL/MM3 (4.50-5.90) Hemoglobin 10.2 GM/DL (13.0-17.0) Hematocrit 30.4 % (39.0-51.0) Mean Corpuscular Volume 91.3 FL (80.0-100.0) Mean Corpuscular Hemoglobin 30.7 PG (27.0-34.0) Mean Corpuscular Hemoglobin Concent 33.6 % (32.0-36.0) Red Cell Distribution Width 13.7 % (11.6-17.2) Platelet Count 184 TH/MM3 (150-450) Mean Platelet Volume 7.4 FL (7.0-11.0) Neutrophils (%) (Auto) 73.1 % (16.0-70.0) Lymphocytes (%) (Auto) 13.0 % (9.0-44.0) Monocytes (%) (Auto) 11.6 % (0.0-8.0) Eosinophils (%) (Auto) 1.9 % (0.0-4.0) Basophils (%) (Auto) 0.4 % (0.0-2.0) Neutrophils # (Auto) 7.1 TH/MM3 (1.8-7.7) Lymphocytes # (Auto) 1.3 TH/MM3 (1.0-4.8) Monocytes # (Auto) 1.1 TH/MM3 (0-0.9) Eosinophils # (Auto) 0.2 TH/MM3 (0-0.4) Basophils # (Auto) 0.0 TH/MM3 (0-0.2) CBC Comment DIFF FINAL Differential Comment Blood Urea Nitrogen 28 MG/DL (7-18) Creatinine 1.32 MG/DL (0.60-1.30) Random Glucose 138 MG/DL (74-106) Total Protein 6.1 GM/DL (6.4-8.2) Albumin 2.6 GM/DL (3.4-5.0) Calcium Level 8.3 MG/DL (8.5-10.1) Alkaline Phosphatase 74 U/L (45-117) Aspartate Amino Transf (AST/SGOT) 28 U/L (15-37) Alanine Aminotransferase (ALT/SGPT) 18 U/L (12-78) Total Bilirubin 0.7 MG/DL (0.2-1.0) Sodium Level 139 MEQ/L (136-145) Potassium Level 4.5 MEQ/L (3.5-5.1) Chloride Level 106 MEQ/L (98-107) Carbon Dioxide Level 26.5 MEQ/L (21.0-32.0) Anion Gap 7 MEQ/L (5-15) Estimat Glomerular Filtration Rate 52 ML/MIN (>89) Result Diagram: 10/31/1752910/31/17529 (1) CAD (coronary artery disease) Plan: Stable overnight. Severe left main and severe RCA disease by cath with normal EF. Await CABG tomorrow. Continue beta addis, aspirin, heparin drip. (2) Hyperlipidemia Plan: Good lipid profile. Continue statin therapy. (3) Hypertension Plan: Stable. Normotensive. Problem Qualifiers (1) CAD (coronary artery disease): Qualified Codes: I25.110 - Atherosclerotic heart disease of [place] coronary artery with unstable angina pectoris (2) Hyperlipidemia: Qualified Codes: E78.2 - Mixed hyperlipidemia (3) Hypertension: Qualified Codes: I10 - Essential (primary) hypertension Lasha Good MD Oct 31, 2017 08:57
--- NOTE | 2017-10-31 09:59 | HHI.PR ---
Subjective Remarks Continues to improve. Postop day #3 from CABG. No new complaints today. Objective Vital Signs Date Time Temp Pulse Resp B/P (MAP) Pulse Ox O2 Delivery O2 Flow Rate FiO2 10/31/17 08:00 98.2 94 20 148/70 (96) 94 10/31/17 08:00 102 10/31/17 07:31 90 10/31/17 07:24 96 Room Air 10/31/17 07:00 104 10/31/17 06:14 102 10/31/17 05:45 100 10/31/17 04:04 89 10/31/17 03:11 89 10/31/17 03:11 98.0 94 20 134/70 (91) 94 10/31/17 02:29 90 10/31/17 01:47 96 10/31/17 00:15 90 10/30/17 23:10 98.3 86 18 114/58 (76) 98 10/30/17 23:10 90 10/30/17 22:06 108 10/30/17 21:42 109 10/30/17 20:30 106 10/30/17 19:55 96 21 10/30/17 19:30 98.2 101 19 118/61 (80) 96 10/30/17 19:30 101 10/30/17 19:30 96 Room Air 10/30/17 18:00 105 10/30/17 17:30 109 10/30/17 17:00 88 10/30/17 16:00 98.4 105 16 118/62 (80) 94 10/30/17 16:00 98 10/30/17 15:00 109 10/30/17 14:00 88 10/30/17 13:00 82 10/30/17 12:00 78 10/30/17 12:00 98.2 96 16 120/65 (83) 94 10/30/17 11:00 80 10/30/17 10:00 92 I/O 10/30/17 10/30/17 10/30/17 10/31/17 10/31/17 10/31/17 07:00 15:00 23:00 07:00 15:00 23:00 Intake Total 300 ml 970 ml 300 ml Output Total 370 ml 450 ml Balance -70 ml 520 ml 300 ml Intake Oral 300 ml 970 ml 300 ml Output Urine Total 300 ml 450 ml Chest Tube Drainage Total 70 ml # Voids 3 # Bowel Movements 0 0 Result Diagram: 10/31/1752910/31/1730 Objective Remarks GENERAL: NAD, A&Ox3 HEAD: Normocephalic. NECK: Supple, trachea midline. No lymphadenopathy. EYES: No scleral icterus. No injection or drainage. CARDIOVASCULAR: Regular rate and rhythm without murmurs, gallops, or rubs. RESPIRATORY: Breath sounds equal bilaterally. No accessory muscle use. GASTROINTESTINAL: Abdomen soft, non-tender, nondistended. MUSCULOSKELETAL: No cyanosis, or edema. Anterior chest wound. SKIN: Warm and dry. NEURO: No focal neurological deficitis. A/P Problem List: (1) Hypertension ICD Code: I10 - Essential (primary) hypertension Status: Chronic (2) Hyperlipidemia ICD Code: E78.5 - Hyperlipidemia, unspecified Status: Chronic (3) CAD (coronary artery disease) ICD Code: I25.10 - Atherosclerotic heart disease of [place] coronary artery without angina pectoris Status: Chronic (4) Chest pain ICD Code: R07.9 - Chest pain, unspecified Status: Acute Assessment and Plan 82-year-old male admitted secondary to unstable angina, now status post CABG on 09/27/17. Improving through time. Plan for discharge to a rehab facility. Labs reviewed. No acute changes. Continue to follow labs. Labs ordered for further monitoring. Unstable angina CAD Status post CABG Continue pain treatments as needed Continue postop care Continue lisinopril Continue metoprolol Continue statin Cardiothoracic surgeon following Diabetes mellitus type 2 Follow blood sugars Insulin sliding scale Diabetic diet Nausea and vomiting Resolved Follow electrolytes Hypertension Continue metoprolol Continue lisinopril Constipation. Resolved. Stool softener MiraLAX as needed DVT prophylaxis SCDs Problem Qualifiers (1) Hypertension: Qualified Codes: I10 - Essential (primary) hypertension (2) Hyperlipidemia: Qualified Codes: E78.2 - Mixed hyperlipidemia (3) CAD (coronary artery disease): Qualified Codes: I25.110 - Atherosclerotic heart disease of [place] coronary artery with unstable angina pectoris (4) Chest pain: Qualified Codes: R07.9 - Chest pain, unspecified Garret Martino MD Oct 31, 2017 09:59
[2017-10-31] MEDS ORDERED: METOPROLOL TARTRATE 25 MG TAB PO PRN (10:15)
[2017-10-31] MEDS: SENNOSIDES 8.6 MG TAB PO SCH (20:00)
[2017-10-31] MEDS: ATORVASTATIN 40 MG TAB PO SCH (20:01)
[2017-10-31] MEDS: INSULIN DETEMIR 100 UNITS/ML VIAL SQ SCH (21:27)
[2017-11-01] VITALS (18 sets, daily range): BP systolic 125–140; BP diastolic 65–74; PULSE 76–106; RESP 17–20; TEMP 97.9–98.2; O2SAT 94–97
[2017-11-01] MEDS: INSULIN ASPART SUPPLEMENTAL SCALE SQ SCH ×2 (02:00→06:00)
[2017-11-01] MEDS: METOCLOPRAMIDE HCL 10 MG/2 ML VIAL IV PUSH SCH ×2 (06:00→12:00)
[2017-11-01 06:01] LABS: HEMATOCRIT 30.1 % (39.0-51.0); HEMOGLOBIN 10.2 GM/DL (13.0-17.0); MEAN CELL VOLUME 90.9 FL (80.0-100.0); MEAN CORPUSCULAR HEMOGLOBIN 30.8 PG (27.0-34.0); MEAN CORPUSCULAR HGB CONC 33.9 % (32.0-36.0); MEAN PLATELET VOLUME 7.6 FL (7.0-11.0); PLATELET COUNT 198 TH/MM3 (150-450); RED BLOOD COUNT 3.31 MIL/MM3 (4.50-5.90); RED CELL DISTRIBUTION WIDTH 13.3 % (11.6-17.2); WHITE BLOOD COUNT 7.3 TH/MM3 (4.0-11.0)
[2017-11-01] MEDS: PANTOPRAZOLE SOD 40 MG DELAYED RELEASE TAB PO SCH (06:01)
[2017-11-01 06:33] LABS: BICARBONATE 29.1 MEQ/L (21.0-32.0); CALCIUM 8.6 MG/DL (8.5-10.1); CREATININE 1.11 MG/DL (0.60-1.30)
--- NOTE | 2017-11-01 07:45 | PD.CAR.PN ---
CVT Progress Note Subjective/Hospital Course: Mr. Naidu is a very pleasant 82-year-old gentleman with a known history of hypertension, diabetes mellitus and hyperlipidemia presents with an approximated [id number] day history of progressive substernal chest pain described as a pressure sensation. 10/28 SURGICAL PROCEDURE 1. Urgent Off-pump Coronary Artery Bypass Grafting x 3 with Left Internal Mammary Artery (DE OLIVEIRA) to the Left Anterior Descending (LAD), reverse saphenous vein graft to the Posterior Descending Artery (RPDA) of the Right Coronary Artery, reverse saphenous vein graft to the Obtuse Marginal branch (OM1) of the Left Circumflex artery 2. Intraoperative Vein Mapping 3. Left Leg Endoscopic Vein Clarence 10/29 Doing well Transfer [facility]PCU Maintain CT Ambulate Beta addis 10/30 D/C CT Rehab evaluation Ambulate 10/31 Doing well Tachycardic when ambulates Likely D/C SNF tomorrow 11/01 D/C today Objective: Vital Signs Date Time Temp Pulse Resp B/P (MAP) Pulse Ox O2 Delivery O2 Flow Rate FiO2 11/01/17 07:10 89 11/01/17 07:10 97 Room Air 11/01/17 07:10 98.2 95 20 135/69 (91) 97 11/01/17 06:00 88 11/01/17 05:00 92 11/01/17 04:03 98 11/01/17 03:11 98.2 91 17 140/72 (94) 94 11/01/17 03:00 86 11/01/17 02:09 91 11/01/17 01:00 86 11/01/17 00:00 76 10/31/17 23:23 98.0 88 17 122/65 (84) 95 10/31/17 23:00 83 10/31/17 22:00 86 10/31/17 21:18 93 21 10/31/17 21:00 93 10/31/17 20:00 108 10/31/17 19:46 98.5 106 17 138/72 (94) 97 10/31/17 19:42 97 Room Air 10/31/17 19:00 101 10/31/17 18:00 92 10/31/17 17:00 90 10/31/17 16:00 98.4 94 18 124/64 (84) 95 10/31/17 16:00 89 10/31/17 15:00 91 10/31/17 14:00 90 10/31/17 13:00 88 10/31/17 12:00 89 10/31/17 12:00 98.1 88 18 118/60 (79) 95 10/31/17 11:00 91 10/31/17 10:00 108 10/31/17 09:00 102 10/31/17 08:00 98.2 94 20 148/70 (96) 94 10/31/17 08:00 102 Labs: Laboratory Tests Test 11/01/17 04:55 White Blood Count 7.3 TH/MM3 (4.0-11.0) Red Blood Count 3.31 MIL/MM3 (4.50-5.90) Hemoglobin 10.2 GM/DL (13.0-17.0) Hematocrit 30.1 % (39.0-51.0) Mean Corpuscular Volume 90.9 FL (80.0-100.0) Mean Corpuscular Hemoglobin 30.8 PG (27.0-34.0) Mean Corpuscular Hemoglobin Concent 33.9 % (32.0-36.0) Red Cell Distribution Width 13.3 % (11.6-17.2) Platelet Count 198 TH/MM3 (150-450) Mean Platelet Volume 7.6 FL (7.0-11.0) Blood Urea Nitrogen 26 MG/DL (7-18) Creatinine 1.11 MG/DL (0.60-1.30) Random Glucose 36 MG/DL (74-106) Calcium Level 8.6 MG/DL (8.5-10.1) Sodium Level 141 MEQ/L (136-145) Potassium Level 3.9 MEQ/L (3.5-5.1) Chloride Level 104 MEQ/L (98-107) Carbon Dioxide Level 29.1 MEQ/L (21.0-32.0) Anion Gap 8 MEQ/L (5-15) Estimat Glomerular Filtration Rate 63 ML/MIN (>89) Result Diagram: 11/01/17 0455 11/01/17 0455 (1) CAD (coronary artery disease) Plan: Stable overnight. Severe left main and severe RCA disease by cath with normal EF. Await CABG tomorrow. Continue beta addis, aspirin, heparin drip. (2) Hyperlipidemia Plan: Good lipid profile. Continue statin therapy. (3) Hypertension Plan: Stable. Normotensive. Problem Qualifiers (1) CAD (coronary artery disease): Qualified Codes: I25.110 - Atherosclerotic heart disease of [place] coronary artery with unstable angina pectoris (2) Hyperlipidemia: Qualified Codes: E78.2 - Mixed hyperlipidemia (3) Hypertension: Qualified Codes: I10 - Essential (primary) hypertension Lasha Good MD Nov 01, 2017 07:45
[2017-11-01] MEDS: AMIODARONE 200 MG TAB PO SCH (08:01)
[2017-11-01] MEDS: MULTIVITAMINS/MINERALS THERAPEUTIC TAB PO SCH (08:01)
[2017-11-01] MEDS: TAMSULOSIN HCL 0.4 MG CAP PO SCH (08:01)
[2017-11-01] MEDS: MAGNESIUM HYDROXIDE SUSP 30 ML CUP PO SCH (08:01)
[2017-11-01] MEDS: ASPIRIN 81 MG CHEW TAB PO SCH (08:01)
[2017-11-01] MEDS: POLYETHYLENE GLYCOL 17 GM PKG PO SCH ×2 (08:01→08:02)
[2017-11-01] MEDS: METOPROLOL TARTRATE 50 MG TAB PO SCH (08:01)
[2017-11-01] MEDS: CLOPIDOGREL 75 MG TAB PO SCH (08:01)
[2017-11-01] MEDS: DOCUSATE SODIUM 100 MG CAP PO SCH (08:01)
[2017-11-01] MEDS ORDERED: INSUINJ4 SQ ×2 (09:10)
[2017-11-01] MEDS ORDERED: GLUCAGON 1 MG/ML VIAL OTHER PRN (11:00)
[2017-11-01] MEDS ORDERED: DEXTROSE 50% IN WATER 50 ML VIAL(D50) IV PUSH PRN (11:00)
[2017-11-01] MEDS ORDERED: INSULIN ASPART SUPPLEMENTAL SCALE SQ SCH (12:00)
[2017-11-01] MEDS ORDERED: NOVOLOGSS SQ (13:50)
--- NOTE | 2017-11-01 13:53 | HHI.DS ---
Discharge Summary Admission Date Oct 25, 2017 at 12:31 Discharge Date: Nov 01, 2017 Admitting Diagnosis chest pain (1) S/P CABG (coronary artery bypass graft) ICD Code: Z95.1 - Presence of aortocoronary bypass graft Diagnosis: Principal (2) CAD (coronary artery disease) ICD Code: I25.10 - Atherosclerotic heart disease of [place] coronary artery without angina pectoris Diagnosis: Principal Status: Chronic Procedures cardiac cath Surgeon: Lasha Good CTS on 10/28/17 1. Urgent Off-pump Coronary Artery Bypass Grafting x 3 with Left Internal Mammary Artery (DE OLIVEIRA) to the Left Anterior Descending (LAD), reverse saphenous vein graft to the Posterior Descending Artery (RPDA) of the Right Coronary Artery, reverse saphenous vein graft to the Obtuse Marginal branch (OM1) of the Left Circumflex artery 2. Intraoperative Vein Mapping 3. Left Leg Endoscopic Vein Shorter Brief History - From Admission 82-year-old male admitted secondary to chest pain CBC/BMP: 11/01/17 0455 11/01/17 0455 Significant Findings Laboratory Tests Test 10/30/17 03:19 10/31/17 05:30 11/01/17 04:55 Red Blood Count 3.15 MIL/MM3 (4.50-5.90) 3.33 MIL/MM3 (4.50-5.90) 3.31 MIL/MM3 (4.50-5.90) Hemoglobin 9.9 GM/DL (13.0-17.0) 10.2 GM/DL (13.0-17.0) 10.2 GM/DL (13.0-17.0) Hematocrit 28.7 % (39.0-51.0) 30.4 % (39.0-51.0) 30.1 % (39.0-51.0) Neutrophils (%) (Auto) 79.7 % (16.0-70.0) 73.1 % (16.0-70.0) Lymphocytes (%) (Auto) 8.2 % (9.0-44.0) Monocytes (%) (Auto) 11.6 % (0.0-8.0) 11.6 % (0.0-8.0) Neutrophils # (Auto) 8.0 TH/MM3 (1.8-7.7) Lymphocytes # (Auto) 0.8 TH/MM3 (1.0-4.8) Monocytes # (Auto) 1.2 TH/MM3 (0-0.9) 1.1 TH/MM3 (0-0.9) Blood Urea Nitrogen 31 MG/DL (7-18) 28 MG/DL (7-18) 26 MG/DL (7-18) Creatinine 1.49 MG/DL (0.60-1.30) 1.32 MG/DL (0.60-1.30) Random Glucose 139 MG/DL (74-106) 138 MG/DL (74-106) 36 MG/DL (74-106) Calcium Level 8.4 MG/DL (8.5-10.1) 8.3 MG/DL (8.5-10.1) Estimat Glomerular Filtration Rate 45 ML/MIN (>89) 52 ML/MIN (>89) 63 ML/MIN (>89) Total Protein 6.1 GM/DL (6.4-8.2) Albumin 2.6 GM/DL (3.4-5.0) PE at Discharge GENERAL: This is a well-nourished, well-developed patient, in no apparent distress. CARDIOVASCULAR: Regular rate and regular rhythm without murmurs, gallops, or rubs. RESPIRATORY: Clear to auscultation. Breath sounds equal bilaterally. No wheezes , rales, or rhonchi. GASTROINTESTINAL: Abdomen soft, non-tender, nondistended. Normal, active bowel sounds MUSCULOSKELETAL: Extremities without clubbing, cyanosis, or edema. NEURO: Alert & Oriented x4 to person, place, time, situation. Moves all ext x4 Hospital Course Mr. Alvarado is an 82-year-old male. He was originally admitted with chest pain. He was found to have significant coronary artery disease without ability to stand. Decision was made to provide bypass surgery and the patient underwent this procedure during this hospital stay. He's been recovering well after the procedure and is continuing to work with physical therapy. Physical therapy will continue at time of discharge to shelter facility. Medically he is stable for discharge to shelter facility today. Pt Condition on Discharge: Stable Discharge Disposition: Discharge to SNF Discharge Time: > 30 minutes Discharge Instructions DIET: Follow Instructions for: Heart Healthy Diet, Diabetic Diet Activities you can perform: Regular-No Restrictions Follow up Referrals: Cardiology - 4 Weeks with Jose German MD PCP Follow-up - 2 Weeks with Mohinder Henriquez MD Surgical - 2 Weeks with Darlene Love New Medications: Insulin NPH (Human) (Isophane) Inj (Novolin N Relion Inj) 1,000 Unit/10 Ml Vial 15 UNIT SQ DAILY@0800 for Blood Sugars, #1 VIAL Insulin NPH (Human) (Isophane) Inj (Novolin N Relion Inj) 1,000 Unit/10 Ml Vial 5 UNIT SQ DAILY@2000 for Blood Sugars, #1 VIAL Amiodarone (Amiodarone) 200 Mg Tab 200 MG PO Q12HR for z for 14 Days, TAB Clopidogrel (Plavix) 75 Mg Tab 75 MG PO DAILY for z for 90 Days, #90 TAB 6 Refills Hydrocodone/Acetaminophen (Hydrocodone-Acetamin 5-325 mg) 5 Mg-325 Mg Tablet 1 TAB PO Q3H PRN for PAIN SCALE 1 TO 5, #60 TAB Insulin Aspart Inj (Novolog Inj) 100 Unit/Ml Inj 1 UNIT SQ ACHS SLIDING SCALE for Blood Sugar Management, #1 VIAL Tamsulosin (Flomax) 0.4 Mg Cap 0.4 MG PO DAILY for z for 14 Days, #14 CAP Continued Medications: Amlodipine (Amlodipine) 10 Mg Tab 10 MG PO DAILY for Blood Pressure Management, #30 TAB 0 Refills Aspirin (Aspirin) 81 Mg Chew 81 MG CHEW DAILY, TAB 0 Refills Atorvastatin (Atorvastatin) 80 Mg Tab 80 MG PO HS for Cholesterol Management, #30 TAB 0 Refills Metoprolol Tartrate (Metoprolol Tartrate) 100 Mg Tab 100 MG PO DAILY, #30 TAB 0 Refills Spironolactone (Spironolactone) 100 Mg Tab 100 MG PO DAILY, #30 TAB 0 Refills Discontinued Medications: Insulin Glargine Inj (Lantus Inj) 1,000 Unit/10 Ml Vial 43 UNITS SQ HS for Blood Sugar Management, VIAL 0 Refills Insulin Human NPH Inj (Novolin N Inj) 1,000 Unit/10 Ml Vial 25 UNITS SQ DIRECTED for Blood Sugar Management, #10 ML 0 Refills Lisinopril (Lisinopril) 40 Mg Tab 40 MG PO DAILY for Blood Pressure Management, #30 TAB 0 Refills Garret Martino MD Nov 01, 2017 13:53
[2017-11-01] MEDS ORDERED: INSULIN DETEMIR 100 UNITS/ML VIAL SQ SCH (21:00)
== END 2017-11-01 17:41 | DRG 234 ==
LOC: PHED 11:20 → PHEDA 12:31 → HCIS 14:48 → HCVI 10-28 12:00 → HCPC 10-29 10:55
PROVIDERS: ADMIT Hospitalist; ATTEND Hospitalist
PROC: 4A023N7 Measurement of Cardiac Sampling and Pressure, Left Heart, Percutaneous Approach (ICD-10-PCS; 2017-10-25)
PROC: B2111ZZ Fluoroscopy of Multiple Coronary Arteries using Low Osmolar Contrast (ICD-10-PCS; 2017-10-25)
PROC: B2151ZZ Fluoroscopy of Left Heart using Low Osmolar Contrast (ICD-10-PCS; 2017-10-25)
PROC: 021109W Bypass Coronary Artery, Two Arteries from Aorta with Autologous Venous Tissue, Open Approach (ICD-10-PCS; 2017-10-28)
PROC: 06BQ4ZZ Excision of Left Saphenous Vein, Percutaneous Endoscopic Approach (ICD-10-PCS; 2017-10-28)
PROC: 02100Z9 Bypass Coronary Artery, One Artery from Left Internal Mammary, Open Approach (ICD-10-PCS; principal; 2017-10-28 07:13)
DX: I25.110 Atherosclerotic heart disease of native coronary artery with unstable angina pectoris (principal); E10.65 Type 1 diabetes mellitus with hyperglycemia; I10 Essential (primary) hypertension; M19.90 Unspecified osteoarthritis, unspecified site; E78.2 Mixed hyperlipidemia; K59.00 Constipation, unspecified; R00.0 Tachycardia, unspecified; Z79.4 Long term (current) use of insulin; Z79.82 Long term (current) use of aspirin
CPT/HCPCS: 36430; 71045; 76937; 80048; 80053; 80061; 81001; 82272; 82550; 82552; 82948; 83036; 83735; 84484; 85007; 85025; 85027; 85610; 85730; 86850; 86900; 86901; 86920; 87641; 93005; 93458; 93880; 93970; 93998; 94002; 94010; 94150; 94640; 94664; 94667; 94668; 99152; C1768; C1769; C1893; C9248; J0131; J0690; J1644; J1815; J1817; J1885; J2250; J2270; J2370; J2405; J2440; J2710; J2720; J2765; J3010; J3370; J3475; J3480; J7040; J7050; J7120; P9016; Q9967

== ENCOUNTER 2017-11-06 15:44 | Emergency (ER) | payer MEDICARE ==
[~2017-11-06] VITALS: Ht 180.3 cm; Wt 79.0 kg
[~2017-11-06 15:44] MED LIST changes: +AMIO200T PO; +AMLO10TA2 PO; -AMLO5TAB2 PO; +ASPI-516 CHEW; -ASPI325T33 PO; -FINA5TAB2 PO; +HYDR-3516 PO; +INSUINJ4 SQ; -LANTUS2P SQ; -LISI40TA PO; -NOVOLOGP2 SQ; +NOVOLOGSS SQ; +PLAV75TA29 PO; +SPIR100T PO; +TAMS5CAP PO
[2017-11-06 15:54] VITALS: BP 113/61; PULSE 71; RESP 15; TEMP 97.8; O2SAT 98
[2017-11-06 15:59] VITALS: O2SAT 100
--- NOTE | 2017-11-06 16:26 | RADRPT ---
EXAM DATE/TIME: 11/06/2017 16:10 [facility] COMPARISON: CHEST SINGLE AP, October 29, 2017, 3:32. INDICATIONS : Patient complains of left sided chest pain 1 week post CABG. MEDICAL HISTORY : None. SURGICAL HISTORY : None. ENCOUNTER: Initial ACUITY: 2 days PAIN SCORE: 5/10 LOCATION: Left chest FINDINGS: A single view of the chest demonstrates stable, moderate elevation left hemidiaphragm. Previously see n left-sided thoracostomy tube has been removed. Left subclavian central venous catheter has been rem getachew. No pneumothorax. Mild left basilar airspace process with associated effusion. Right lungs clear . Heart size is normal. Intact median sternotomy wires. Mild degenerative spurring of the dorsal spin e. CONCLUSION: 1. Interval removal of a left thoracostomy tube without pneumothorax. 2. Stable mild elevation of the left hemidiaphragm with interval development of a mild left basilar c onsolidation and associated effusion. Max Aquino MD on November 06, 2017 at 16:20 Board Certified Radiologist. This report was verified electronically.
[2017-11-06] MEDS ORDERED: HUMALOG SQ (16:28)
[2017-11-06 16:39] LABS: AUTOMATED NEUTROPHIL # 7.5 TH/MM3 (1.8-7.7); BASOPHIL # 0.1 TH/MM3 (0-0.2); BASOPHIL % 0.8 % (0.0-2.0); EOSINOPHIL # 0.5 TH/MM3 (0-0.4); EOSINOPHIL % 4.8 % (0.0-4.0); HEMATOCRIT 31.5 % (39.0-51.0); HEMOGLOBIN 10.6 GM/DL (13.0-17.0); LYMPHOCYTE # 0.8 TH/MM3 (1.0-4.8); MEAN CELL VOLUME 92.7 FL (80.0-100.0); MEAN CORPUSCULAR HEMOGLOBIN 31.1 PG (27.0-34.0); MEAN CORPUSCULAR HGB CONC 33.6 % (32.0-36.0); MONO % 8.9 % (0.0-8.0); MONOCYTE # 0.9 TH/MM3 (0-0.9); NEUT % 77.5 % (16.0-70.0); PLATELET COUNT 332 TH/MM3 (150-450); RED CELL DISTRIBUTION WIDTH 13.7 % (11.6-17.2); WHITE BLOOD COUNT 9.7 TH/MM3 (4.0-11.0)
[2017-11-06 16:50] LABS: INTERNATIONAL NORMALIZED RATIO 1.1 RATIO; PROTHROMBIN TIME - PATIENT 10.8 SEC (9.8-11.6)
[2017-11-06 16:53] LABS: BICARBONATE 24.2 MEQ/L (21.0-32.0); BLOOD UREA NITROGEN 33 MG/DL (7-18); CALCIUM 8.1 MG/DL (8.5-10.1); CHLORIDE 100 MEQ/L (98-107); CREATININE 1.82 MG/DL (0.60-1.30); GLOMERULAR FILTRATION RATE 36 ML/MIN (>89); GLUCOSE,RANDOM 317 MG/DL (74-106); MAGNESIUM 2.2 MG/DL (1.5-2.5); SODIUM (NA) 134 MEQ/L (136-145)
[2017-11-06 16:57] LABS: TROPONIN I LESS THAN 0.02 NG/ML (0.02-0.05)
[2017-11-06] MEDS ORDERED: MORPHINE SULFATE 2 MG/ML INJ IV PUSH ONE (17:00)
[2017-11-06] MEDS ORDERED: NITROGLYCERIN 2% OINT 1 GM PACKET TOPICAL ONE (17:00)
[2017-11-06 17:03] VITALS: BP 100/65; PULSE 69
--- NOTE | 2017-11-06 17:39 | PD ---
HPI . Chest pain Chief Complaint: Chest Pain Time Seen by Provider: 15:49 Travel History International Travel<30 days: No Contact w/Intl Traveler<30days: No Traveled to known affect area: No History of Present Illness HPI This patient is status post a CABG on 10/26 he was discharged from here to a rehabilitation facility. He states that he had been doing well until this morning about 9:00 when he developed sternal chest pain. He denies shortness of breath. He was given a nitroglycerin and developed diaphoresis after the nitroglycerin. That has subsequently resolved. Pain level at its worst was a 4. Pain level on arrival was 1. Current pain level is 0. PFSH Past Medical History Cancer: No Cardiovascular Problems: Yes (htn on meds) High Cholesterol: Yes Diabetes: Yes (type 1) Patient Takes Glucophage: No Diminished Hearing: Yes (NADINE HEARING AIDS) Endocrine: Yes Gastrointestinal Disorders: No Genitourinary: No Hepatitis: No Hiatal Hernia: No Hypertension: Yes Immune Disorder: No Musculoskeletal: Yes (ARTHRITIS GENERALIZED) Neurologic: No Psychiatric: No Reproductive: No Respiratory: No Thyroid Disease: No ?: Not Past Surgical History Abdominal Surgery: Yes (RT INGUINAL HERNIA) AICD: No Cardiac Surgery: Yes (CABG) Eye Surgery: Yes (NADINE. CATARACT) Joint Replacement: No Pacemaker: No Other Surgery: Yes Social History Alcohol Use: No Tobacco Use: No (DENIES) Substance Use: No Allergies-Medications (Allergen,Severity, Reaction): Coded Allergies: levofloxacin (Unverified Adverse Reaction, Severe, achilles tendon tear, ) Reported Meds & Prescriptions Reported Meds & Active Scripts Active Novolin N Relion Inj (Insulin NPH (Human) (Isophane) Inj) 1,000 Unit/10 Ml Vial 5 Unit SQ DAILY@2000 Novolin N Relion Inj (Insulin NPH (Human) (Isophane) Inj) 1,000 Unit/10 Ml Vial 15 Unit SQ DAILY@0800 Hydrocodone-Acetamin 5-325 mg (Hydrocodone/Acetaminophen) 5 Mg-325 Mg Tablet 1 Tab PO Q3H PRN Amiodarone (Amiodarone HCl) 200 Mg Tab 200 Mg PO Q12HR 14 Days Plavix (Clopidogrel Bisulfate) 75 Mg Tab 75 Mg PO DAILY 90 Days Flomax (Tamsulosin HCl) 0.4 Mg Cap 0.4 Mg PO DAILY 14 Days Reported Humalog Inj (Insulin Human Lispro) 1,000 Unit/10 Ml Vial 4-10 Units SQ ACHS Max dose at bedtime:( )units; sugars < 70,(0)units; sugars 150-199,(5)units; sugars 200-249,(10)units; sugars 250-299,(15)units; sugars 300-349,(20)units; sugars more than 349,(25)units. Aspirin 81 Mg Chew 81 Mg CHEW DAILY Spironolactone 100 Mg Tab 100 Mg PO DAILY Amlodipine (Amlodipine Besylate) 10 Mg Tab 10 Mg PO DAILY Atorvastatin (Atorvastatin Calcium) 80 Mg Tab 80 Mg PO HS Metoprolol Tartrate 100 Mg Tab 100 Mg PO DAILY Review of Systems Except as stated in HPI: all other systems reviewed are Neg HENT: No: Lightheadedness Cardiovascular: Positive: Chest Pain or Discomfort Respiratory: No: Shortness of Breath Gastrointestinal: No: Nausea Physical Exam Narrative GENERAL: Very pleasant older gentleman who is in no acute distress. He does wear hearing aids. SKIN: warm/dry. HEAD: Normocephalic. Atraumatic. EYES: Pupils equal and round. No scleral icterus. No injection or drainage. ENT: No nasal bleeding or discharge. Mucous membranes pink and moist. NECK: Trachea midline. Full range of motion without pain.. CARDIOVASCULAR: Regular rate and rhythm. Heart sounds normal. New sternotomy scar with Steri-Strips in place and no purulent drainage. RESPIRATORY: No accessory muscle use. Clear to auscultation. Breath sounds equal bilaterally. GASTROINTESTINAL: Abdomen soft. Nontender. Bowel sounds present. Nondistended. MUSCULOSKELETAL: No obvious deformities. NEUROLOGICAL: Awake and alert. No obvious cranial nerve deficits. Motor grossly within normal limits. Normal speech. PSYCHIATRIC: Appropriate mood and affect; insight and judgment normal. Data Data Last Documented VS Vital Signs Date Time Temp Pulse Resp B/P (MAP) Pulse Ox O2 Delivery O2 Flow Rate FiO2 11/06/17 17:56 78 17 110/57 (74) 100 Room Air 11/06/17 15:54 97.8 Orders Orders Electrocardiogram (11/06/17 15:55) Basic Metabolic Panel (Bmp) (11/06/17 15:55) Ckmb (Isoenzyme) Profile (11/06/17 15:55) Complete Blood Count With Diff (11/06/17 15:55) Magnesium (Mg) (11/06/17 15:55) Prothrombin Time / Inr (Pt) (11/06/17 15:55) Act Partial Throm Time (Ptt) (11/06/17 15:55) Troponin I (11/06/17 15:55) Chest, Single Ap (11/06/17 15:55) Ecg Monitoring (11/06/17 15:55) Bilateral Bp Monitoring (11/06/17 15:55) Iv Access Insert/Monitor (11/06/17 15:55) Oximetry (11/06/17 15:55) Oxygen Administration (11/06/17 15:55) Nitroglycerin 2% Oint (Nitroglycerin 2% (11/06/17 17:00) Morphine Inj (Morphine Inj) (11/06/17 17:00) Labs Laboratory Tests Test 11/06/17 16:04 White Blood Count 9.7 TH/MM3 Red Blood Count 3.40 MIL/MM3 Hemoglobin 10.6 GM/DL Hematocrit 31.5 % Mean Corpuscular Volume 92.7 FL Mean Corpuscular Hemoglobin 31.1 PG Mean Corpuscular Hemoglobin Concent 33.6 % Red Cell Distribution Width 13.7 % Platelet Count 332 TH/MM3 Mean Platelet Volume 7.0 FL Neutrophils (%) (Auto) 77.5 % Lymphocytes (%) (Auto) 8.0 % Monocytes (%) (Auto) 8.9 % Eosinophils (%) (Auto) 4.8 % Basophils (%) (Auto) 0.8 % Neutrophils # (Auto) 7.5 TH/MM3 Lymphocytes # (Auto) 0.8 TH/MM3 Monocytes # (Auto) 0.9 TH/MM3 Eosinophils # (Auto) 0.5 TH/MM3 Basophils # (Auto) 0.1 TH/MM3 CBC Comment AUTO DIFF Prothrombin Time 10.8 SEC Prothromb Time International Ratio 1.1 RATIO Activated Partial Thromboplast Time 24.2 SEC Blood Urea Nitrogen 33 MG/DL Creatinine 1.82 MG/DL Random Glucose 317 MG/DL Calcium Level 8.1 MG/DL Magnesium Level 2.2 MG/DL Sodium Level 134 MEQ/L Potassium Level 4.6 MEQ/L Chloride Level 100 MEQ/L Carbon Dioxide Level 24.2 MEQ/L Anion Gap 10 MEQ/L Estimat Glomerular Filtration Rate 36 ML/MIN Total Creatine Kinase 41 U/L Troponin I LESS THAN 0.02 NG/ML Exceptions Acute Myocardial Infarction ASA Not Given on Arrival: Already taken by patient MDM Medical Decision Making Medical Screen Exam Complete: Yes Emergency Medical Condition: Yes Medical Record Reviewed: Yes (patient was seen here on 10/25 with chest pain with EKG changes. He was taken emergently to the catheter lab. He was found to have left main and RCA disease. He was taken for CABG the next day.) Interpretation(s) EKG shows a sinus rhythm with some T-wave flattening mainly in the inferior leads. Differential Diagnosis Differential diagnosis of chest pain includes but is not limited to musculoskeletal pain, pulmonary embolism, acute coronary syndrome, pneumonia, pleurisy Narrative Course This patient presents with chief complaint of chest pain. He was treated prior to arrival with aspirin and nitroglycerin. The nitroglycerin did improve his pain. CBC & BMP Diagram 11/06/17 16:04 Calcium Level 8.1 L, Magnesium Level 2.2 trop < 0.02 Last Impressions Chest X-Ray 11/06/17 1555 Signed Impressions: Service Date/Time: Monday, November 06, 2017 16:10 - CONCLUSION: 1. Interval removal of a left thoracostomy tube without pneumothorax. 2. Stable mild elevation of the left hemidiaphragm with interval development of a mild left basilar consolidation and associated effusion. Max Aquino MD I will talk to his nurse practical regarding disposition. Vital Signs Date Time Temp Pulse Resp B/P (MAP) Pulse Ox O2 Delivery O2 Flow Rate FiO2 11/06/17 17:56 78 17 110/57 (74) 100 Room Air 11/06/17 17:03 69 100/65 (77) 11/06/17 15:59 100 Room Air 11/06/17 15:54 97.8 71 15 113/61 (78) 98 The patient denies shortness of breath. Low index of suspicion for PE. Physician Communication Physician Communication Dr. Stinson who has reviewed his studies done today. He recommends d/c. Diagnosis Primary Impression: Chest pain Qualified Codes: R07.9 - Chest pain, unspecified Additional Impression: S/P CABG (coronary artery bypass graft) Patient Instructions: Chest Pain (DC), General Instructions Disposition: 01 DISCHARGE HOME Condition: Stable Delaney Sanchez MD Nov 06, 2017 17:39
[2017-11-06 17:56] VITALS: BP 110/57; PULSE 78; RESP 17; O2SAT 100
[2017-11-06 18:03] LABS: BANDS 4 % (0-6); BASOPHILS 1 % (0-2); LYMPHOCYTES 9 % (9-44); METAMYELOCYTES 1 % (0-1); MONOCYTES 5 % (0-8); NEUTROPHIL # MANUAL DIFF 7.7 TH/MM3 (1.8-7.7); POLYS (SEG NEUTROPHILS) 72 % (16-70); PROMYELOCYTES 2 % (0-0)
[2017-11-06 18:04] LABS: ACANTHOCYTES OCC (NORMAL); BURR CELLS 1+ (NORMAL)
[2017-11-06 18:27] VITALS: BP 108/70
[2017-11-06 18:29] VITALS: RESP 16
--- NOTE | 2017-11-07 14:39 | EKG ---
Date Performed: 11/06/2017 Time Performed: 15:54:07 PTAGE: 82 years EKG: Sinus rhythm WITH FIRST DEGREE AV BLOCK INFERIOR MYOCARDIAL INFARCTION ABNORMAL ECG INTERPRETATION BASED ON A DEF SESAR AGE OF 40 YEARS PREVIOUS TRACING : 10/29/2017 05.17 Since the prior tracing, there has been no significan t change DOCTOR: Abraham Palmer Interpretating Date/Time 11/07/2017 14:33:44
== END 2017-11-06 18:35 | disposition home or self-care (01) ==
LOC: NEPE 15:44
DX: R07.9 Chest pain, unspecified (principal); R94.31 Abnormal electrocardiogram [ECG] [EKG]; I10 Essential (primary) hypertension; E78.00 Pure hypercholesterolemia, unspecified; E10.9 Type 1 diabetes mellitus without complications; M19.90 Unspecified osteoarthritis, unspecified site; Z95.1 Presence of aortocoronary bypass graft
CPT/HCPCS: 71045; 80048; 82550; 83735; 84484; 85007; 85027; 85610; 85730; 93005; 96374; 99285; J2270